=== PATIENT | female | born 1965 ===

== ENCOUNTER → 2020-05-14 09:52 | Outpatient (BNVA) | payer MEDICAID, SELFPAY | PROVIDERS: PCP Family Medicine; Visit Provider Surgery | DX: R91.8 Other nonspecific abnormal finding of lung field (principal); F17.200 Nicotine dependence, unspecified, uncomplicated; Z71.6 Tobacco abuse counseling | CPT/HCPCS: 99214 ==

== ENCOUNTER 2020-05-31 13:41 | Outpatient (REF) | payer MEDICAID, SELFPAY ==
--- NOTE | 2020-05-31 | US_ITS ---
EXAMINATION: NONINVASIVE ASSESSMENT OF THE ARTERIES OF BOTH LOWER EXTREMITIES WITH ANKLE PRESSURE MEASUREMENTS, ANKLE BRACHIAL INDICES, PVR MEASUREMENTS AND BILATERAL LOWER EXTREMITY DUPLEX. CLINICAL INFORMATION: Leg pain with walking. TECHNIQUE: Ankle pressure measurements, ankle brachial indices and PVR tracings were obtained of the lower extremity arterial system bilaterally. In addition, duplex Doppler techniques with wave form analysis and measurement of velocities in the common femoral, profunda femoral, superficial femoral, popliteal and tibial arteries was performed. The study was performed only at rest. COMPARISON: None. FINDINGS: NONINVASIVE ASSESSMENT OF THE ARTERIES OF BOTH LOWER EXTREMITIES WITH ABIs: RIGHT LEG: Right ankle-brachial index: 0.89. Right ankle pressures: PT 106. DP 132. PVR (ankle): Dampened. LEFT LEG: Ankle-brachial index: 0.77. Pressures: PT 115. DP 105. PVR (ankle): Dampened. FREEDOM Reference: - >0.97-1.25 = normal - no significant arterial disease. - 0.75-0.96 = mild peripheral arterial disease. - 0.5-0.74 = moderate peripheral arterial disease. - <0.50 = severe peripheral arterial disease. BILATERAL LOWER EXTREMITY DUPLEX ULTRASOUND: RIGHT LEG: Common femoral artery: 237 cm/s, Diastolic flow reversal: Yes. Profunda femoris artery: 200 cm/s, Diastolic flow reversal: Yes. Superficial femoral artery (proximal): 207 cm/s, Diastolic flow reversal: Yes. Superficial femoral artery (mid): 366 cm/s, Diastolic flow reversal: Yes. Superficial femoral artery (distal): 114 cm/s, Diastolic flow reversal: Yes. Popliteal artery: 80 cm/s, Diastolic flow reversal: Yes. Posterior tibial artery: 59 cm/s, Diastolic flow reversal: No. LEFT LEG: Common femoral artery: 203 cm/s, Diastolic flow reversal: Yes. Profunda femoris artery: 218 cm/s, Diastolic flow reversal: Yes. Superficial femoral artery (proximal): 167 cm/s, Diastolic flow reversal: No. Superficial femoral artery (mid): 75 cm/s, Diastolic flow reversal: No. Superficial femoral artery (distal): 101 cm/s, Diastolic flow reversal: No. Popliteal artery: 79 cm/s, Diastolic flow reversal: No. Posterior tibial artery: 101 cm/s, Diastolic flow reversal: No. US/US arterial duplex LE BI IMPRESSION: RIGHT LEG: FREEDOM 0.89 consistent with mild arterial insufficiency throughout the right lower extremity. Moderate, hemodynamically significant mid SFA stenosis by duplex criteria. LEFT LEG: FREEDOM 0.77 consistent with mild arterial occlusive disease.
== END 2020-05-31 13:42 | disposition home or self-care (01) ==
LOC: HO.US 13:41
PROVIDERS: PCP Family Medicine; Visit Provider Family Medicine
DX: M79.606 Pain in leg, unspecified (principal)
CPT/HCPCS: 93923; 93925

== ENCOUNTER → 2020-07-01 13:24 | Outpatient (BNVA) | payer MEDICAID, SELFPAY | PROVIDERS: PCP Family Medicine; Visit Provider Internal Medicine Pulmonary Disease | DX: J44.9 Chronic obstructive pulmonary disease, unspecified (principal) | CPT/HCPCS: 99202 ==

== ENCOUNTER 2020-07-13 13:02 | Outpatient (REF) | payer MEDICAID, SELFPAY ==
--- NOTE | 2020-07-13 17:25 | PFT_ITS ---
FLOWS: FEV1 of 81% of predicted at 1.78 L. FVC 72% of predicted at 2.01 L. FEV1 to FVC ratio of 0.89. No bronchodilator response. LUNG VOLUMES: Total lung capacity 84% of predicted at 3.65 L. Residual volume 104% of predicted at 1.72 L. Slow vital capacity 72% of predicted at 1.93 L. Expiratory reserve volume 19% of predicted at 0.15 L. Diffusion capacity is moderately decreased, diffusion capacity adjust to being mildly decreased after correction for alveolar ventilation. IMPRESSION: No obstructive or restrictive ventilatory defect. No bronchodilator response. Decreased expiratory reserve volume suggests extrathoracic restriction likely secondary to abdominal obesity. Decreased diffusion capacity suggests emphysema. Olman Hendrix MD AP/MODL / [id number]
== END 2020-07-13 13:03 | disposition home or self-care (01) ==
LOC: HO.RESP 13:02
PROVIDERS: Visit Provider Internal Medicine Pulmonary Disease
DX: J44.9 Chronic obstructive pulmonary disease, unspecified (principal)
CPT/HCPCS: 94060; 94727; 94729

== ENCOUNTER → 2020-12-24 11:12 | Outpatient (BNVA) | payer MEDICAID, SELFPAY | PROVIDERS: PCP Family Medicine; Visit Provider Surgery | DX: R19.8 Other specified symptoms and signs involving the digestive system and abdomen (principal); J44.9 Chronic obstructive pulmonary disease, unspecified; Z79.899 Other long term (current) drug therapy; Z87.891 Personal history of nicotine dependence | CPT/HCPCS: 99212 ==

== ENCOUNTER → 2021-03-15 13:21 | Outpatient (BNVA) | payer MEDICAID, SELFPAY | PROVIDERS: PCP Family Medicine; Visit Provider Internal Medicine Pulmonary Disease | DX: J44.1 Chronic obstructive pulmonary disease with (acute) exacerbation (principal); R91.1 Solitary pulmonary nodule | CPT/HCPCS: 99212 ==

== ENCOUNTER → 2021-09-23 13:03 | Outpatient (BNVA) | payer MEDICAID, SELFPAY | PROVIDERS: PCP Family Medicine; Visit Provider Internal Medicine Pulmonary Disease | DX: J44.9 Chronic obstructive pulmonary disease, unspecified (principal); R91.8 Other nonspecific abnormal finding of lung field; Z91.09 Other allergy status, other than to drugs and biological substances | CPT/HCPCS: 99212 ==

== ENCOUNTER → 2021-11-10 12:07 | Outpatient (BNVA) | payer MEDICAID, SELFPAY | PROVIDERS: PCP Family Medicine; Referring Provider Family Medicine; Visit Provider Physician Assistant | DX: K21.9 Gastro-esophageal reflux disease without esophagitis (principal); Z86.010 Personal history of colon polyps; Z87.891 Personal history of nicotine dependence | CPT/HCPCS: 99202 ==

== ENCOUNTER 2021-12-19 17:22 | Emergency (ER) | payer MEDICAID, SELFPAY ==
[2021-12-19 18:42] VITALS: BP 178/53; PULSE 68; RESP 18; TEMP 37.2; O2SAT 96; BMI 32.0
[2021-12-19 19:20] VITALS: BP 180/76; PULSE 65; RESP 16; TEMP 36.3; O2SAT 98
[2021-12-19 19:35] LABS: MANUAL DIFF FLAG NO
[2021-12-19 19:39] LABS: Basophils Absolute Auto 0.1 X10*3/uL (0.0-0.2); Basophils Percent Auto 1.1 % (0-2); Eosinophils Absolute Auto 0.5 X10*3/uL (0.0-0.4); Eosinophils Percent Auto 4.1 % (0-4); Hematocrit 33.9 % (37.0-47.0); Hemoglobin 11.6 g/dl (12.0-16.0); Imm Gran Abs Auto 0.05 X10*3/uL (0.00-0.03); Imm Gran Pct Auto 0.4 % (0.0-0.4); Lymphocytes Absolute Auto 4.3 X10*3/uL (1.2-4.9); Lymphocytes Percent Auto 34.6 % (20-40); Mean Corpuscular HGB Conc 34.2 g/dl (31.0-35.0); Mean Corpuscular Hemoglobin 30.8 pg (27.0-33.0); Mean Corpuscular Volume 89.9 fL (80.0-98.0); Mean Platelet Volume 9.2 fL (9.4-12.3); Monocytes Absolute Auto 0.8 X10*3/uL (0.1-1.2); Monocytes Percent Auto 6.3 % (2-11); Neutrophils Absolute Auto 6.6 x10*3/uL (2.0-8.3); Neutrophils Percent Auto 53.5 % (45-73); Platelet Count 351 X10*3/uL (160-400); Red Blood Count 3.77 X10*6/uL (4.20-5.50); Red Cell Distribution Width 13.4 % (11.0-16.0); White Blood Count 12.3 X10*3/uL (4.8-10.8)
[2021-12-19 19:42] LABS: Appearance Urine CLEAR; Color Urine STRAW; Glucose Urine UA Negative (NEG); Leukocyte Esterase Urine Negative (Negative); Nitrite Urine Negative (NEG); Specific Gravity - Urine <= 1.005 (1.005-1.025); Urine Blood Negative (NEG); Urine Ketones Negative (NEG); Urine Protein Negative (NEG-TRACE)
[2021-12-19 19:55] LABS: Alanine Aminotransferase 11 U/L (0-31); Albumin Level 3.8 g/dL (3.5-5.0); Alkaline Phosphatase 85 U/L (39-117); Anion Gap 15 (12-20); Aspartate Amino Transferase 18 U/L (5-31); Bilirubin Total 0.2 mg/dL (0.0-1.0); Blood Urea Nitrogen 26 mg/dL (9-16); Calcium 8.9 mg/dL (8.4-10.2); Carbon Dioxide 25 mmol/L (22-29); Chloride 100 mmol/L (96-108); Creatinine Clr Calc Pharmacy 31.8; Estimated Glomerular Filt Rate 34; Glucose Random 86 mg/dL (60-115); Potassium 4.3 mmol/L (3.3-5.1); Sodium 136 mmol/L (135-145); Total Protein 6.5 g/dL (6.5-8.0)
== END 2021-12-20 01:01 | disposition left against medical advice (07) ==
PROVIDERS: Emergency Provider Emergency Medicine
DX: R31.9 Hematuria, unspecified (principal); Z79.899 Other long term (current) drug therapy
CPT/HCPCS: 36415; 80053; 81003; 85025; 99282; 99283

== ENCOUNTER 2022-02-09 13:07 | Outpatient (REF) | payer MEDICAID, SELFPAY ==
--- NOTE | ~2022-02-09 | CT_ITS ---
EXAMINATION: CT CHEST SCREENING CLINICAL INFORMATION: Current smoker, one pack per day for 22 years. COMPARISON: Chest x-ray 10/03/2018. TECHNIQUE: Multidetector volumetric CT imaging of the chest is performed without contrast using low dose technique. Additional 2D coronal and sagittal reformatted images and axial 3D maximum intensity projection (MIP) images are generated on the CT workstation. This CT examination was performed using dose optimization techniques as appropriate, variously including the following: *Automated exposure control *Adjustment of mA and/or kV according to patient size (this includes techniques or standardized protocols for targeted exams where dose is matched to indication/reason for exam; i.e. extremities or head) *Use of iterative reconstruction technique DLP: 200 mGy-cm. FINDINGS: LUNGS: The lungs are well expanded with reticular nodular changes and ground-glass attenuation in left lower lobe superior segment with peribronchial thickening. Focal triangular thickening is seen in the superior segment left lower lobe measuring 9 mm on axial image 184/6. The nodules are calcified. There is a 3 mm nodule adjacent to the left major fissure axial image 289/6, a 4 mm nodular left lower lobe adjacent to the left major fissure axial image 317/6, a 9 mm nodule with central calcification left lower lobe medially adjacent to the pericardium axial image 260/6 and 3 calcified nodules left lower lobe measuring 1 4 mm, 8 mm and 3 mm superior segment axial image 204/6. Focal atelectatic changes left lower lobe. Mild centrilobular emphysematous changes are seen in the lower lobes. MEDIASTINUM: Thyroid lobes are symmetric and normal. The central trachea and the bronchi are widely patent. Heart size and the great vessels are normal caliber. There are coronary artery calcifications present. No pericardial effusion seen. CORONARY ARTERY CALCIFICATION: Mild coronary artery calcifications seen. PLEURA: There is no pleural effusion. No pleural mass or thickening. AXILLA: No lymphadenopathy. UPPER ABDOMEN: Visualized liver, spleen, pancreas and bilateral adrenal glands are unremarkable. OSSEOUS STRUCTURES: No aggressive lytic or sclerotic process seen. CT/CT lung screening IMPRESSION: Radicular nodular changes with bronchial wall thickening superior segment left lower lobe. The nodules are calcified, likely chronic changes. There are 3 moderate-sized calcified nodules in the left lower lobe superior segment, likely chronic as well. Triangular density in the left lower lobe superior segment is likely focal atelectasis. No acute consolidation seen. ASSESSMENT: Lung-RADS category 3: Probably benign. RECOMMENDATION: Six-month low-dose CT chest.
== END 2022-02-09 13:08 | disposition home or self-care (01) ==
LOC: HO.CT 13:07
PROVIDERS: Visit Provider Physician Assistant Medical
DX: Z12.2 Encounter for screening for malignant neoplasm of respiratory organs (principal); Z87.891 Personal history of nicotine dependence
CPT/HCPCS: 71271

== ENCOUNTER → 2022-04-17 10:57 | Outpatient (BNVA) | payer MEDICAID, SELFPAY | PROVIDERS: PCP Family Medicine; Visit Provider Physician Assistant | DX: K59.09 Other constipation (principal) | CPT/HCPCS: 99202 ==

== ENCOUNTER → 2022-04-20 11:23 | Outpatient (BNVA) | payer MEDICAID, SELFPAY | PROVIDERS: PCP Family Medicine; Visit Provider Internal Medicine Pulmonary Disease | DX: Z01.811 Encounter for preprocedural respiratory examination (principal); J44.1 Chronic obstructive pulmonary disease with (acute) exacerbation; Z91.09 Other allergy status, other than to drugs and biological substances | CPT/HCPCS: 99212 ==

== ENCOUNTER 2022-08-07 15:28 | Outpatient (REF) | payer MEDICAID, SELFPAY ==
--- NOTE | ~2022-08-07 | MR_ITS ---
EXAMINATION: MR LUMBAR SPINE WITHOUT CONTRAST CLINICAL INFORMATION: Low back pain radiating to bilateral lower extremities. COMPARISON: There are no prior studies available for comparison. TECHNIQUE: MRI of the lumbar spine was obtained using routine sequences without contrast. FINDINGS: VERTEBRAL BODIES AND PARASPINAL STRUCTURES: There is a mild grade 1 anterolisthesis of L4 on L5. Intervertebral disc heights are maintained. There is disc desiccation throughout the lumbar spine, relatively sparing L4-L5. The vertebral bodies have normal height and contour, and no fractures are demonstrated. Overall, marrow signal is homogenous. The visualized retroperitoneal and pelvic structures are unremarkable. CONUS MEDULLARIS AND CAUDA EQUINA: Normal, terminating at the level of T12-L1. The lower thoracic spinal cord appears normal. The cauda equina nerve roots and filum terminale appear normal. SPINAL LEVELS: L1-L2: The facet joints appear normal. There is a small left paracentral disc protrusion with minimal distortion of the ventral thecal sac. There is no central stenosis and the neural foramina are patent bilaterally. L2-L3: There is mild bilateral facet arthropathy. Disc contour is normal. There is no central stenosis or foraminal narrowing. L3-L4: There is mild to moderate bilateral facet arthropathy. There is a left foraminal disc protrusion with mild impingement on the exiting left L3 nerve root. There is no central stenosis. L4-L5: There is moderate to severe left and mild to moderate right facet arthropathy. There is a central and left-sided disc protrusion which flattens the ventral thecal sac and narrows the left subarticular recess with impingement on the traversing left L5 nerve root. There are bilateral foraminal disc protrusions with impingement on the exiting L4 nerve roots. There is moderate central stenosis. L5-S1: There is mild bilateral facet arthropathy. There is a central and left paracentral disc protrusion with distortion of the ventral thecal sac, but the subarticular recesses are patent and there is no central stenosis. There are left greater than right foraminal disc protrusions with impingement on the exiting L5 nerve roots. MR/MR lumbar spine wo con IMPRESSION: 1. At L4-L5 there is a central and left-sided disc protrusion which narrows the left subarticular recess with impingement on the traversing left L5 nerve root. There are bilateral foraminal disc protrusions impinging on the exiting L4 nerve roots. There is moderate central stenosis. 2. At L5-S1 there is a central and left paracentral disc protrusion with distortion of the ventral thecal sac. There are left greater than right foraminal disc protrusions with impingement on the exiting L5 nerve roots. There is no central stenosis. 3. At L3-L4 there is facet arthropathy and there is a left foraminal disc protrusion impinging on the exiting left L3 nerve root. There is no central stenosis.
== END 2022-08-07 15:29 | disposition home or self-care (01) ==
LOC: HO.MRI 15:28
PROVIDERS: PCP Family Medicine; Visit Provider Family Medicine
DX: M54.50 Low back pain, unspecified (principal)
CPT/HCPCS: 72148

== ENCOUNTER 2022-08-09 13:56 | Outpatient (REF) | payer MEDICAID, SELFPAY ==
--- NOTE | ~2022-08-09 | XR_ITS ---
EXAMINATION: XR ANKLE, LEFT CLINICAL INFORMATION: Pain COMPARISON: None available. TECHNIQUE: AP, lateral, and mortise views of the left ankle. FINDINGS: Overlying material obscures evaluation of fine bony detail. With this limitation, no acute fracture or dislocation. Atherosclerotic vascular calcification. No tibiotalar joint effusion. Mild degenerative changes with plantar calcaneal spurring and Achilles tendon enthesopathy. XR/XR ankle LT min 3V IMPRESSION: 1. Overlying material obscures evaluation of fine bony detail. With this limitation, no acute fracture or dislocation. 2. Mild degenerative changes with plantar calcaneal spurring and Achilles tendon enthesopathy.
== END 2022-08-09 13:57 | disposition home or self-care (01) ==
LOC: HO.XRAY 13:56
PROVIDERS: PCP Family Medicine; Visit Provider Family Medicine
DX: M25.572 Pain in left ankle and joints of left foot (principal)
CPT/HCPCS: 73610

== ENCOUNTER 2022-08-24 14:17 | Outpatient (REF) | payer MEDICAID, SELFPAY ==
--- NOTE | ~2022-08-24 | MM_ITS ---
EXAMINATION: MM SCREENING DIGITAL BREAST TOMOSYNTHESIS, BILATERAL CLINICAL INFORMATION: Screening. Asymptomatic. The lifetime risk of breast cancer based on the Tyrer-Cuzick Model is 10.6%. COMPARISON: Mammography: and studies dating back to 08/04/2014. TECHNIQUE: Digital breast tomosynthesis is performed in both the craniocaudal and mediolateral oblique views along with computer-aided detection (CAD). Synthesized 2-D images are generated from the tomosynthesis. FINDINGS: The breasts are heterogeneously dense, which may obscure small masses (ACR BI-RADS breast composition Category c). About the inferior medial aspect of the left breast, there are some calcifications present, some of which appear to have a tobin-shaped form and for which spot magnification films are recommended in craniocaudal and 90 degree mediolateral views. There is multiplicity and bilaterality of other calcifications. No definite new abnormal dominant mass is identified. MM/MM tomosynthesis screening BI IMPRESSION: Left breast calcifications for evaluation as described. ASSESSMENT: BI-RADS 0: Incomplete - Need Additional Imaging Evaluation. RECOMMENDATION: 1. Additional views of the left breast. 2. Targeted ultrasound if warranted after review of the additional views. 3. Radiology department staff will contact the patient for additional imaging. This patient's information was entered into a reminder system with a target due date for their next mammogram.
== END 2022-08-24 14:18 | disposition home or self-care (01) ==
LOC: HO.MAMMO 14:17
PROVIDERS: PCP Family Medicine; Visit Provider Family Medicine
DX: Z12.31 Encounter for screening mammogram for malignant neoplasm of breast (principal)
CPT/HCPCS: 77063; 77067

== ENCOUNTER 2022-09-08 14:52 | Outpatient (REF) | payer MEDICAID, SELFPAY ==
--- NOTE | ~2022-09-08 | MM_ITS ---
EXAMINATION: MM DIAGNOSTIC DIGITAL MAMMOGRAPHY, LEFT CLINICAL INFORMATION: Left breast calcifications. COMPARISON: Mammography: 08/24/2022 and studies dating back to 08/04/2014. TECHNIQUE: Digital mammography is performed in the following views: Spot magnification views left breast in craniocaudal and 90 degree mediolateral views. FINDINGS: The breasts are heterogeneously dense, which may obscure small masses (ACR BI-RADS breast composition Category c). The calcifications about the medial aspect of the left breast appear to be indeterminate in nature and stereotactic core biopsy of both groupings of calcifications is recommended. These calcifications were not present on prior examinations. Results are discussed with the patient at time of visit. MM/MM added views LT IMPRESSION: Two regions of indeterminate calcifications within the left breast for which stereotactic core biopsy is recommended. ASSESSMENT: BI-RADS 4: Suspicious RECOMMENDATION: Stereotactic core biopsy left breast. Mammography Center patient coordinator called referring provider with the above recommendation.
== END 2022-09-08 14:53 | disposition home or self-care (01) ==
LOC: HO.MAMMO 14:52
PROVIDERS: PCP Family Medicine; Visit Provider Family Medicine
DX: R92.1 Mammographic calcification found on diagnostic imaging of breast (principal)
CPT/HCPCS: 77065

== ENCOUNTER 2022-09-12 09:29 | Outpatient (REF) | payer MEDICAID, SELFPAY ==
--- NOTE | ~2022-09-12 | MM_ITS ---
EXAMINATION: STEREOTACTIC TOMOSYNTHESIS-GUIDED VACUUM-ASSISTED BREAST BIOPSY (TWO SITES), LEFT SPECIMEN RADIOGRAPHS (TWO SPECIMENS), LEFT POST PROCEDURE DIGITAL MAMMOGRAM, LEFT CLINICAL INFORMATION: 2 groups calcifications mid medial left breast for stereotactic sampling. COMPARISON: Mammography 09/08/2022, 08/24/2022, 06/07/2018. TECHNIQUE/PROCEDURE: Informed consent was obtained from the patient after discussion of the benefits, risks, and alternatives to biopsy today. Patient appeared to understand. Gave opportunity for questions. Patient signed consent form. Hospital provided educational sign language interpreter assisted during the consent and home instructions. Specimen A: BIOPSY TABLE: Hologic Affirm Prone Biopsy System. LESION: Grouped relatively coarse calcifications mid medial left breast, possibly fibroadenomatous calcifications. LOCAL ANESTHESIA: 5 mL carbonated 1% lidocaine; 10 mL 1% lidocaine with epinephrine. DERMATOTOMY: Single skin delbert dermatotomy performed. NEEDLE: Suros Eviva 9-gauge vacuum assisted core biopsy device. APPROACH: Caudal cranial. TARGETING: Combination of digital breast tomosynthesis and stereotactic digital mammography used for targeting. CORES: 4. CLIP: Suros SecurMark Cylinder-shaped marker. SPECIMEN RADIOGRAPH (A): Specimen radiograph is taken in separate room using digital mammography. The index calcifications are in the excised cores. There are over 10 calcifications in the cores. Specimen B: Fresh biopsy supplies are used for 2nd biopsy site. BIOPSY TABLE: Hologic Affirm Prone Biopsy System. LESION: Grouped heterogeneous coarse calcifications mid medial left breast, slightly more anterior and central to specimen A group, possibly fibroadenomatous calcifications. LOCAL ANESTHESIA: 7 mL carbonated 1% lidocaine; 10 mL 1% lidocaine with epinephrine. DERMATOTOMY: Single skin delbert dermatotomy performed. NEEDLE: Suros Eviva 9-gauge vacuum assisted core biopsy device. APPROACH: Caudal cranial. TARGETING: Combination of digital breast tomosynthesis and stereotactic digital mammography used for targeting. CORES: 5. CLIP: Suros SecurMark T-shaped marker. SPECIMEN RADIOGRAPH (B): Specimen radiograph is taken in separate room using digital mammography. The index calcifications are in the excised cores. There are over 10 calcifications in the cores. POST PROCEDURE UNILATERAL DIGITAL MAMMOGRAM: The post biopsy mammogram is performed in separate room using separate digital mammography equipment from the biopsy procedure. CC and ML views are obtained. The breasts are heterogeneously dense, which may obscure small masses (breast composition category: c). The clip markers are in position. The calcifications are markedly decreased at both biopsy sites. No gross hematoma. The patient tolerated the procedure well. No immediate complications. Home instructions reviewed with the patient. Final pathology results are pending. MM/MM stereotactic biopsy ea add IMPRESSION: 1. Digital tomosynthesis-guided core biopsy left breast with clip placement, 2 sites mid medial breast. 2. Specimen radiograph taken and post procedure mammogram. There is satisfactory positioning of the biopsy clips. 3. Final pathology results pending. An addendum report will be issued. .
--- NOTE | ~2022-09-12 | MM_ITS ---
EXAMINATION: STEREOTACTIC TOMOSYNTHESIS-GUIDED VACUUM-ASSISTED BREAST BIOPSY (TWO SITES), LEFT SPECIMEN RADIOGRAPHS (TWO SPECIMENS), LEFT POST PROCEDURE DIGITAL MAMMOGRAM, LEFT CLINICAL INFORMATION: 2 groups calcifications mid medial left breast for stereotactic sampling. COMPARISON: Mammography 09/08/2022, 08/24/2022, 06/07/2018. TECHNIQUE/PROCEDURE: Informed consent was obtained from the patient after discussion of the benefits, risks, and alternatives to biopsy today. Patient appeared to understand. Gave opportunity for questions. Patient signed consent form. Hospital provided butter grader assisted during the consent and home instructions. Specimen A: BIOPSY TABLE: Hologic Affirm Prone Biopsy System. LESION: Grouped relatively coarse calcifications mid medial left breast, possibly fibroadenomatous calcifications. LOCAL ANESTHESIA: 5 mL carbonated 1% lidocaine; 10 mL 1% lidocaine with epinephrine. DERMATOTOMY: Single skin delbert dermatotomy performed. NEEDLE: Suros Eviva 9-gauge vacuum assisted core biopsy device. APPROACH: Caudal cranial. TARGETING: Combination of digital breast tomosynthesis and stereotactic digital mammography used for targeting. CORES: 4. CLIP: Suros SecurMark Cylinder-shaped marker. SPECIMEN RADIOGRAPH (A): Specimen radiograph is taken in separate room using digital mammography. The index calcifications are in the excised cores. There are over 10 calcifications in the cores. Specimen B: Fresh biopsy supplies are used for 2nd biopsy site. BIOPSY TABLE: Hologic Affirm Prone Biopsy System. LESION: Grouped heterogeneous coarse calcifications mid medial left breast, slightly more anterior and central to specimen A group, possibly fibroadenomatous calcifications. LOCAL ANESTHESIA: 7 mL carbonated 1% lidocaine; 10 mL 1% lidocaine with epinephrine. DERMATOTOMY: Single skin delbert dermatotomy performed. NEEDLE: Suros Eviva 9-gauge vacuum assisted core biopsy device. APPROACH: Caudal cranial. TARGETING: Combination of digital breast tomosynthesis and stereotactic digital mammography used for targeting. CORES: 5. CLIP: Suros SecurMark T-shaped marker. SPECIMEN RADIOGRAPH (B): Specimen radiograph is taken in separate room using digital mammography. The index calcifications are in the excised cores. There are over 10 calcifications in the cores. POST PROCEDURE UNILATERAL DIGITAL MAMMOGRAM: The post biopsy mammogram is performed in separate room using separate digital mammography equipment from the biopsy procedure. CC and ML views are obtained. The breasts are heterogeneously dense, which may obscure small masses (breast composition category: c). The clip markers are in position. The calcifications are markedly decreased at both biopsy sites. No gross hematoma. The patient tolerated the procedure well. No immediate complications. Home instructions reviewed with the patient. Final pathology results are pending. MM/MM stereotactic biopsy LT IMPRESSION: 1. Digital tomosynthesis-guided core biopsy left breast with clip placement, 2 sites mid medial breast. 2. Specimen radiograph taken and post procedure mammogram. There is satisfactory positioning of the biopsy clips. 3. Final pathology results pending. An addendum report will be issued. .
[2022-09-12] MEDS: Lidocaine HCl 1 % 20 ML VIAL SUBCUT (11:14)
[2022-09-12] MEDS: Sodium Bicarbonate 8.4% 50 MEQ/50 ML VIAL SUBCUT (11:15)
[2022-09-12] MEDS: Lidocaine HCl 1%/Epi 1:100,000 10 ML VIAL 20 ML SUBCUT (11:17)
== END 2022-09-12 09:30 | disposition home or self-care (01) ==
LOC: HO.MAMMO 09:29
PROVIDERS: PCP Family Medicine; Visit Provider Family Medicine
DX: R92.0 Mammographic microcalcification found on diagnostic imaging of breast (principal)
CPT/HCPCS: 19081; 19082; 88305; 99202; A4648

== ENCOUNTER 2022-11-13 13:45 | Outpatient (AMB) | payer MEDICAID, SELFPAY ==
[2022-11-13 13:47] VITALS: BP 145/62; PULSE 161; RESP 14; BMI 31.2
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
== END 2022-11-13 14:01 | disposition home or self-care (01) ==
PROVIDERS: PCP Family Medicine; Visit Provider Internal Medicine
DX: M54.41 Lumbago with sciatica, right side (principal); M54.42 Lumbago with sciatica, left side
CPT/HCPCS: 99203

== ENCOUNTER → 2022-11-13 13:45 | Outpatient (BNVA) | payer MEDICAID, SELFPAY | PROVIDERS: PCP Family Medicine; Visit Provider Internal Medicine | DX: M54.42 Lumbago with sciatica, left side (principal); M54.41 Lumbago with sciatica, right side; E10.22 Type 1 diabetes mellitus with diabetic chronic kidney disease; E10.65 Type 1 diabetes mellitus with hyperglycemia; I12.9 Hypertensive chronic kidney disease with stage 1 through stage 4 chronic kidney disease, or unspecified chronic kidney disease; F17.210 Nicotine dependence, cigarettes, uncomplicated; N18.30 Chronic kidney disease, stage 3 unspecified; Z79.4 Long term (current) use of insulin | CPT/HCPCS: 99202 ==

== ENCOUNTER 2023-01-30 14:23 | Outpatient (REF) | payer MEDICAID, SELFPAY ==
--- NOTE | ~2023-01-30 | XR_ITS ---
EXAMINATION: XR CHEST CLINICAL INFORMATION: Presurgical evaluation COMPARISON: None available. TECHNIQUE: 2 views of the chest were obtained. FINDINGS: No significant abnormality is noted involving the heart, lungs, mediastinum, bony thorax or soft tissues. XR/XR chest 2V IMPRESSION: Unremarkable examination.
--- NOTE | 2023-01-30 14:40 | ECG_ITS ---
Test Reason : preop Blood Pressure : / mmHG Vent. Rate : 055 BPM Atrial Rate : 055 BPM P-R Int : 188 ms QRS Dur : 086 ms QT Int : 406 ms P-R-T Axes : 017 072 075 degrees QTc Int : 388 ms Sinus bradycardia Nonspecific ST abnormality Abnormal ECG When compared with ECG of 25-JUL-2017 14:51, No significant change was found Referred By: Marium Agudelo Electronically Signed By:JACEY BRITT
[2023-01-30 14:44] LABS: MANUAL DIFF FLAG NO
[2023-01-30 15:25] LABS: Basophils Absolute Auto 0.1 X10*3/uL (0.0-0.2); Basophils Percent Auto 0.8 % (0-2); Eosinophils Absolute Auto 0.2 X10*3/uL (0.0-0.4); Eosinophils Percent Auto 1.8 % (0-4); Hematocrit 40.4 % (37.0-47.0); Hemoglobin 13.3 g/dl (12.0-16.0); Imm Gran Abs Auto 0.06 X10*3/uL (0.00-0.03); Imm Gran Pct Auto 0.5 % (0.0-0.4); Lymphocytes Absolute Auto 3.1 X10*3/uL (1.2-4.9); Lymphocytes Percent Auto 23.5 % (20-40); Mean Corpuscular HGB Conc 32.9 g/dl (31.0-35.0); Mean Corpuscular Hemoglobin 30.5 pg (27.0-33.0); Mean Corpuscular Volume 92.7 fL (80.0-98.0); Mean Platelet Volume 9.8 fL (9.4-12.3); Monocytes Absolute Auto 0.5 X10*3/uL (0.1-1.2); Monocytes Percent Auto 4.1 % (2-11); Neutrophils Absolute Auto 9.1 x10*3/uL (2.0-8.3); Neutrophils Percent Auto 69.3 % (45-73); Platelet Count 396 X10*3/uL (160-400); Red Blood Count 4.36 X10*6/uL (4.20-5.50); Red Cell Distribution Width 13.4 % (11.0-16.0); White Blood Count 13.1 X10*3/uL (4.8-10.8)
[2023-01-30 16:16] LABS: Anion Gap 11 (12-20); Blood Urea Nitrogen 24 mg/dL (9-16); Carbon Dioxide 25 mmol/L (22-29); Chloride 103 mmol/L (96-108); Estimated Glomerular Filt Rate 37; Glucose Random 65 mg/dL (60-115); Potassium 4.4 mmol/L (3.3-5.1); Sodium 135 mmol/L (135-145)
[2023-01-30 17:45] LABS: Prothrombin Time 11.9 SEC (11.1-13.3)
== END 2023-01-30 14:24 | disposition home or self-care (01) ==
LOC: HO.LAB 14:23
PROVIDERS: PCP Family Medicine; Visit Provider Family Medicine
DX: Z01.818 Encounter for other preprocedural examination (principal); I10 Essential (primary) hypertension
CPT/HCPCS: 36415; 71046; 80048; 85025; 85610; 93005

== ENCOUNTER 2023-02-01 13:27 | Outpatient (AMB) | payer MEDICAID, SELFPAY ==
[2023-02-01 13:29] VITALS: BP 152/62; PULSE 65; O2SAT 98; BMI 30.8
--- NOTE | 2023-02-01 13:29 | MHC.OFFVIS ---
Intake Vital Signs 02/01/23 13:29 Height 4 ft 9 in Weight 142 lb 3.17 oz BMI 30.8 BP 152/62 H Blood Pressure Location Lt brachial Position Sitting Pulse 65 Pulse Source Doppler Pulse Oximetry (%) 98 Oxygen Delivery Method Room Air Intake Visit Reasons: copd Allergies No Known Allergies [No Known Allergies*] Allergy (Verified 02/01/23 13:30) HPI copd HPI Details 58-year-old lady, active 35 pack year smoker, followed by thoracic surgery for pulmonary nodules and now followed for moderate COPD and environmental allergies. After the last office visit her Incruse has been switched to Anoro with significantly improved control. She denies any recent exacerbations. FORMERLY [facility], [facility]–1983 Medical History Chronic low back pain COPD (chronic obstructive pulmonary disease) History of tuberculosis (~1992) Hyperlipidemia Hypertension Multiple pulmonary nodules Obesity Personal history of nicotine dependence Type 1 diabetes mellitus with stage 3 chronic kidney disease, with long-term current use of insulin Surgical History H/O colonoscopy History of carpal tunnel surgery of right wrist (~2002) History of elbow surgery (~2010) History of foot surgery (~2005) History of hand surgery (~2003) History of right breast biopsy (~2004) History of shoulder surgery (~2005) History of surgery on left wrist (~2010) History of surgery on right wrist (~2011) Family History Brother Family history of premature coronary artery disease Father Renal disease Diabetes mellitus Mother Diabetes mellitus Maternal Grandmother Bladder cancer Social History (Updated 02/01/23 @ 13:31 by Marium Liu Miguel) Household Members: None Household Members Other:: 3kids Housing: Apartment Are you a primary date night caregiver to a significant other at home: No Patient Tobacco Use Status: Current everyday Tobacco user Tobacco use type: Cigarette Cigarettes Per Day: 15 Years Smoked: 35 yrs service: No Current occupational status: disabled Review of Systems Const Denies daytime sleepiness, Denies excessive sweating, Denies fatigue, Denies fever(s), Denies lethargy, Denies malaise, Denies night sweats, Denies snoring and Denies weight loss Eyes Denies blurry vision and Denies itchy eyes ENT Denies nasal congestion, Denies post nasal drip, Denies sinus pain, Denies sinus pressure and Denies other ( Thrush) Card Denies chest pain, Denies pedal edema, Denies dyspnea, Denies orthopnea and Denies paroxysmal nocturnal dyspnea Resp Denies cough, Denies hemoptysis, Denies excessive phlegm production, Denies dyspnea, Denies snoring and Denies wheezing GI Denies abdominal pain and Denies heartburn Musc Denies myalgias, Denies arthralgias and Denies joint swelling Skin/Breast Denies rash Neuro Denies memory loss and Denies seizure-like activity Psych Denies abnormal sleep pattern, Denies anxiety and Denies memory loss Endo Denies excessive sweating, Denies fatigue and Denies heat intolerance Everardo/Lymph Denies easy bruising Aller/Immun Denies itchy eyes, Denies seasonal rhinorrhea and Denies wheezing Physical Exam Vital Signs: Last Vital Signs Pulse 65 02/01/23 13:29 BP 152/62 H 02/01/23 13:29 Pulse Ox 98 02/01/23 13:29 Oxygen Delivery Method Room Air 02/01/23 13:29 BMI result Body Mass Index 30.8 Const General: no acute distress and alert Nutritional Appearance: not obese Orientation/consciousness: Other orientation findings ( oriented) HEENT Head: Yes atraumatic Eyes General: appearance normal, both eyes and all related structures Sclerae: sclerae normal EOM: EOMs intact bilaterally Neck Neck: Yes supple Lymphatic: no lymphadenopathy noted Resp Effort & Inspection: normal respiratory effort and no use of accessory muscles Auscultation: clear to auscultation bilaterally Cardio Rate: regular rate Rhythm: regular rhythm Heart sounds: no gallops, no murmurs and no rubs Skin General skin exam: other ( warm) Extrem General: No clubbing, No cyanosis and No edema Assessment & Plan Assessment & Plan (1) COPD (chronic obstructive pulmonary disease): Code(s): J44.9 - Chronic obstructive pulmonary disease, unspecified Plan: Well controlled current regimen of Anoro and albuterol MDI. Continue current regimen. (2) Pulmonary nodule: Code(s): R91.1 - Solitary pulmonary nodule Plan: Results of CT lung screening from February of 2022 reviewed. Will repeat in February of 2023. Orders: Orders CT lung screening Today R91.1 - Solitary pulmonary nodule Coding Level of Care Code Est Pt Level 4 (35064) Diagnoses COPD (chronic obstructive pulmonary disease) J44.9 Pulmonary nodule R91.1
== END 2023-02-01 13:40 | disposition home or self-care (01) ==
PROVIDERS: PCP Family Medicine; Visit Provider Internal Medicine Pulmonary Disease
DX: J44.9 Chronic obstructive pulmonary disease, unspecified (principal); R91.1 Solitary pulmonary nodule
CPT/HCPCS: 99214

== ENCOUNTER → 2023-02-01 13:27 | Outpatient (BNVA) | payer MEDICAID, SELFPAY | PROVIDERS: PCP Family Medicine; Visit Provider Internal Medicine Pulmonary Disease | DX: J44.9 Chronic obstructive pulmonary disease, unspecified (principal); R91.1 Solitary pulmonary nodule; Z79.899 Other long term (current) drug therapy | CPT/HCPCS: 99212 ==

== ENCOUNTER 2023-04-02 13:09 | Outpatient (REF) | payer MEDICAID, SELFPAY ==
--- NOTE | ~2023-04-02 | MM_ITS ---
EXAMINATION: MM DIAGNOSTIC DIGITAL BREAST TOMOSYNTHESIS, LEFT CLINICAL INFORMATION: 6 month follow-up status post 2 benign biopsies left breast. COMPARISON: Mammography: 09/12/2022, 09/08/2022, 08/24/2022, 06/07/2018. TECHNIQUE: Digital left breast tomosynthesis is performed in both the craniocaudal and mediolateral oblique views along with computer-aided detection (CAD). Synthesized 2D images are generated from the tomosynthesis. FINDINGS: There are scattered areas of fibroglandular density (ACR BI-RADS breast composition Category b). There are 2 biopsy clips present in the lower inner left breast, middle one third, with an associated benign small focus of coarse calcification just posterior to the cylindrical biopsy clip. There are no new suspicious calcifications, no masses, and no areas of architectural distortion in either left breast. The parenchymal pattern is stable from priors. No skin or axillary abnormalities. MM/MM tomosynthesis diagnostic LT IMPRESSION: There are no significant changes from the prior study. Benign findings left breast status post biopsy 2 sites lower inner quadrant. No findings suspicious for malignancy. ASSESSMENT: BI-RADS BI-RADS 2 - Benign Findings RECOMMENDATION: 1 year F/U Results were provided to the patient at time of visit by the technologist. This patient's information was entered into a reminder system with a target due date for their next mammogram.
== END 2023-04-02 13:10 | disposition home or self-care (01) ==
LOC: HO.MAMMO 13:09
PROVIDERS: PCP Family Medicine; Visit Provider Surgery
DX: R92.0 Mammographic microcalcification found on diagnostic imaging of breast (principal)
CPT/HCPCS: 77061; 77065

== ENCOUNTER → 2023-04-02 13:11 | Outpatient (BNV) | payer MEDICAID, SELFPAY | PROVIDERS: PCP Family Medicine; Visit Provider Radiology Diagnostic Radiology | DX: R92.1 Mammographic calcification found on diagnostic imaging of breast (principal); D24.2 Benign neoplasm of left breast | CPT/HCPCS: 77061; 77065 ==

== ENCOUNTER 2023-04-17 10:52 | Outpatient (AMB) | payer MEDICAID, SELFPAY ==
[2023-04-17 11:12] VITALS: BP 129/58; PULSE 59; BMI 29.6
--- NOTE | 2023-04-17 11:12 | MHC.OFFVIS ---
Intake Vital Signs 04/17/23 11:12 Height 4 ft 9 in Weight 137 lb BMI 29.6 BP 129/58 L Blood Pressure Location Rt brachial Position Sitting Pulse 59 Intake Visit Reasons: 6 month follow up, breast exam Intake Note: Patient here for 6m breast exam. Most recent mammo on 04-02-23. Reports pimple like lesions around areola. Not painful or itchy. Meteorologist In Charge Required: Yes Accompanied by: Self / Same As Patient Allergies No Known Allergies [No Known Allergies*] Allergy (Verified 04/17/23 11:14) HPI HPI Comments History of Present Illness Details Patient presents for follow-up 6 month status post her breast biopsy approximately 6 months ago. She has no specific breast issues or complaints. Patient does occasionally do breast exams. [facility] Medical History Obesity Chronic low back pain Type 1 diabetes mellitus with stage 3 chronic kidney disease, with long-term current use of insulin Hyperlipidemia Hypertension Personal history of nicotine dependence COPD (chronic obstructive pulmonary disease) History of tuberculosis (~1992) Multiple pulmonary nodules Surgical History H/O colonoscopy History of right breast biopsy (~2004) History of shoulder surgery (~2005) History of foot surgery (~2005) History of hand surgery (~2003) History of carpal tunnel surgery of right wrist (~2002) History of elbow surgery (~2010) History of surgery on left wrist (~2010) History of surgery on right wrist (~2011) Family History Brother Family history of premature coronary artery disease Father Renal disease Diabetes mellitus Mother Diabetes mellitus Maternal Grandmother Bladder cancer Social History Household Members: None Household Members Other:: 3kids Housing: Apartment Are you a primary nonfarm animal caretaker to a significant other at home: No Patient Tobacco Use Status: Current everyday Tobacco user Tobacco use type: Cigarette Cigarettes Per Day: 15 Years Smoked: 35 yrs service: No Current occupational status: disabled Physical Exam Vital Signs: Last Vital Signs Pulse 59 04/17/23 11:12 BP 129/58 L 04/17/23 11:12 BMI result Body Mass Index 29.6 Chest Other: Bilateral breast exam demonstrates no obvious mass, discharge, skin changes, or periclavicular cervical or axillary adenopathy. Assessment & Plan Assessment & Plan (1) Microcalcification of left breast on mammogram: Code(s): R92.0 - Mammographic microcalcification found on diagnostic imaging of breast Plan: Mammographic/radiologic recommendation is for follow-up in 1 year's time for screening mammography. Arrangements were made for this. During this interim, patient is encouraged to self breast exams periodically. She will see me 1 year's time proceeded by mammography or p.r.n.. All questions answered Orders: Orders MM screening mammo BI 11 Months R92.0 - Mammographic microcalcification found on diagnostic imaging of breast Coding Level of Care Code Est Pt Level 4 (72787) Diagnoses Microcalcification of left breast on mammogram R92.0
== END 2023-04-17 11:35 | disposition home or self-care (01) ==
PROVIDERS: PCP Family Medicine; Visit Provider Surgery
DX: R92.0 Mammographic microcalcification found on diagnostic imaging of breast (principal)
CPT/HCPCS: 99214

== ENCOUNTER → 2023-04-17 10:52 | Outpatient (BNVA) | payer MEDICAID, SELFPAY | PROVIDERS: PCP Family Medicine; Visit Provider Surgery | DX: R92.0 Mammographic microcalcification found on diagnostic imaging of breast (principal) | CPT/HCPCS: 99212 ==

== ENCOUNTER 2023-04-26 13:37 | Outpatient (AMB) | payer MEDICAID, SELFPAY ==
--- NOTE | 2023-04-26 13:38 | MHC.OFFVIS ---
Intake Vital Signs 04/26/23 13:59 Height 4 ft 9 in Weight 137 lb BMI 29.6 BP 155/69 H Blood Pressure Location Lt brachial Position Sitting Pulse 62 Pulse Source Monitor Intake Visit Reasons: follow up GERD Intake Note: Tracy presents in the office as a follow up for GERD. CC: Allergies No Known Allergies [No Known Allergies*] Allergy (Verified 04/17/23 11:14) Medication List - Last Reconciled 04/26/23 by Lizabeth Madrigal PA-C acetaminophen 500 mg PO QID PRN albuterol sulfate 90 mcg/actuation (ProAir HFA) 2 puffs inhalation QID atorvastatin 40 mg PO DAILY clonazepam 1 mg PO DAILY enalapril maleate 20 mg PO DAILY fluticasone propionate 50 mcg/actuation (Flonase Allergy Relief) 1 spray intranasal DAILY gabapentin 100 mg PO DAILY insulin lispro subcut naloxone 4 mg/actuation (Narcan) 1 spray intranasal Q2M polyethylene glycol 3350 (Miralax) 17 grams PO DAILY 30 days sennosides (senna) 8.6 mg PO DAILY umeclidinium-vilanterol 62.5-25 mcg/actuation (Anoro Ellipta) 1 inh inhalation DAILY 30 days zolpidem (Ambien) 10 mg PO BEDTIME PRN HPI HPI Comments History of Present Illness Details A 58 y/o female here for forgot reason Last seen 1 year ago was to have EGD and colonoscopy- she did not follow through- Last colonoscopy with polypectomy> 6 years ago ? [facility] She went to [place]. she says she does not have acid- does not take any medications for it- she does not want an EGD- appetite very good She has chronic constipation- miralax and senna-- BM every 2 days-no fiber or water Sees pulmonary-she has not had any recent respiratory infections No longer following with Cardiology- f./u pcp No acid reflux, abdominal pain nausea, vomiting, hematemesis, hematochezia fever or chills PFSH Medical History Obesity Chronic low back pain Type 1 diabetes mellitus with stage 3 chronic kidney disease, with long-term current use of insulin Hyperlipidemia Hypertension Personal history of nicotine dependence COPD (chronic obstructive pulmonary disease) History of tuberculosis (~1992) Multiple pulmonary nodules Surgical History H/O colonoscopy History of right breast biopsy (~2004) History of shoulder surgery (~2005) History of foot surgery (~2005) History of hand surgery (~2003) History of carpal tunnel surgery of right wrist (~2002) History of elbow surgery (~2010) History of surgery on left wrist (~2010) History of surgery on right wrist (~2011) Family History Brother Family history of premature coronary artery disease Father Renal disease Diabetes mellitus Mother Diabetes mellitus Maternal Grandmother Bladder cancer Social History Household Members: None Household Members Other:: 3kids Housing: Apartment Are you a primary direct care specialist to a significant other at home: No Patient Tobacco Use Status: Current everyday Tobacco user Tobacco use type: Cigarette Cigarettes Per Day: 15 Years Smoked: 35 yrs service: No Current occupational status: disabled Review of Systems Const All systems reviewed & are unremarkable except as noted in HPI and below Card Denies chest pain and Denies dyspnea Resp Denies dyspnea GI Denies abdominal pain, Denies hematochezia, Reports constipation, Denies heartburn, Denies diarrhea, Denies nausea and Denies vomiting Physical Exam Vital Signs: Last Vital Signs Pulse 62 04/26/23 13:59 BP 155/69 H 04/26/23 13:59 BMI result Body Mass Index 29.6 Const General: cooperative, comfortable and no acute distress Orientation/consciousness: patient oriented x3 Limitations: language barrier Eyes Sclerae: sclerae normal Resp Effort & Inspection: normal respiratory effort and able to speak in complete sentences Auscultation: rhonchi and no wheezes Cardio Rate: regular rate Rhythm: regular rhythm Heart sounds: S1 normal heart sound present and S2 normal heart sound present GI Palpation (GI): Soft to palpation and nontender Auscultation: normal bowel sounds Skin General skin exam: no rashes or lesions noted Neuro General: patient oriented x3 Extrem General: Yes full ROM Psych Appearance: grossly normal and well kempt Mental Status: mental status grossly normal Speech and movement: Normal speech and movement present Affect: normal affect Attitude: cooperative Thought process: Normal thought process present Thought content: Normal thought content present Results Reviewed Results Reviewed: 01/2023 FINDINGS: No significant abnormality is noted involving the heart, lungs, mediastinum, bony thorax or soft tissues. J44.9 - Chronic obstructive pulmonary disease, unspecified Plan: Well controlled current regimen of Anoro and albuterol MDI. Continue current regimen. (2) Pulmonary nodule: Assessment & Plan Assessment & Plan (1) Chronic GERD: Comment: no longer has gerd- declines EGD Code(s): K21.9 - Gastro-esophageal reflux disease without esophagitis (2) History of adenomatous polyp of colon: Comment: Colonoscopy, discussed procedure, risks need for escorted due to anesthesia Code(s): Z86.010 - Personal history of colonic polyps Plan: Colonoscopy polyp surveillance (3) COPD (chronic obstructive pulmonary disease): Comment: Report any respiratory illnesses Code(s): J44.9 - Chronic obstructive pulmonary disease, unspecified Plan colonoscopy- anesthesia consult- COPD- MG prep miralax- bid QD for 1 wk < prep day insulin pump- adjust accordingly- Orders: Orders Colonoscopy - GI Use Only 04/26/23 K59.09 - Other constipation, Z86.010 - Personal history of colonic polyps Medications: New bisacodyl (Dulcolax (bisacodyl)) Day before procedure, prep day Take 4 tablets by mouth upon awakening followed by large glass of water 20 mg (4 x 5 mg) PO ONCE 1 day 4 tabs 0RF colonoscopy prep Z12.11 - Encounter for screening for malignant neoplasm of colon polyethylene glycol 3350 (Miralax) Take as directed by mouth the day before your procedure. 238 grams PO ONCE 1 day PRN 238 grams 0RF laxative effect Patient Instructions: colonoscopy- anesthesia consult- COPD- MG prep, reviewed literature given miralax- bid QD for 1 wk < prep day insulin pump- adjust accordingly- Encouraged to call with any questions or concerns Coding Level of Care Code Est Pt Level 3 (46249) Diagnoses Chronic GERD K21.9 History of adenomatous polyp of colon Z86.010 COPD (chronic obstructive pulmonary disease) J44.9 Time Spent (min) 30 Comment [employer]
[2023-04-26 13:59] VITALS: BP 155/69; PULSE 62; BMI 29.6
== END 2023-04-26 14:37 | disposition home or self-care (01) ==
PROVIDERS: PCP Family Medicine; Visit Provider Physician Assistant
DX: K21.9 Gastro-esophageal reflux disease without esophagitis (principal); Z86.010 Personal history of colon polyps; J44.9 Chronic obstructive pulmonary disease, unspecified
CPT/HCPCS: 99213

== ENCOUNTER → 2023-04-26 13:37 | Outpatient (BNVA) | payer MEDICAID, SELFPAY | PROVIDERS: PCP Family Medicine; Visit Provider Physician Assistant | DX: K21.9 Gastro-esophageal reflux disease without esophagitis (principal); J44.9 Chronic obstructive pulmonary disease, unspecified; Z86.010 Personal history of colon polyps | CPT/HCPCS: 99212 ==

== ENCOUNTER 2023-05-30 15:12 | Outpatient (REF) | payer MEDICAID, SELFPAY ==
--- NOTE | ~2023-05-30 | CT_ITS ---
EXAMINATION: CT CHEST SCREENING CLINICAL INFORMATION: Current smoker, 30 pack year history. COMPARISON: Previous CTs, most recent, 02/09/2022. TECHNIQUE: Multidetector volumetric CT imaging of the chest is performed without contrast using low dose technique. Additional 2D coronal and sagittal reformatted images and axial 3D maximum intensity projection (MIP) images are generated on the CT workstation. This CT examination was performed using dose optimization techniques as appropriate, variously including the following: *Automated exposure control *Adjustment of mA and/or kV according to patient size (this includes techniques or standardized protocols for targeted exams where dose is matched to indication/reason for exam; i.e. extremities or head) *Use of iterative reconstruction technique DLP: 41 mGy-cm FINDINGS: DRILLER BRAKE LINING: Unremarkable. LUNGS: Trachea and bronchi are patent. Left lower lobe bronchial wall thickening. Centrilobular emphysema of and mild air trapping bilateral lower lobes, left greater than right. Scattered atelectasis. Left lower lobe reticular nodular opacities again seen includin mm medial nodule, 6:262, unchanged. More posteriorly, another 6 mm medial nodule seen on the same slice without change from previous. LLL 9 mm triangular opacity, 6:183, unchanged. Immediately adjacent are stable 3 mm, 6:196 and 4 mm nodules, 6:207. Stable 3 mm LLL nodule adjacent to the major fissure, 6:297. Vague 1.1 cm posterior RUL groundglass opacity, 3:11, more conspicuous than on previous study. MEDIASTINUM: Unremarkable thyroid. No pathologic lymphadenopathy. Nonenlarged heart. No pericardial effusion. Nonaneurysmal aorta with atherosclerotic calcifications. Nonenlarged pulmonary arteries. CORONARY ARTERY CALCIFICATION: Moderately severe. PLEURA: There is no pleural effusion. No pleural mass or thickening. AXILLA: No lymphadenopathy. UPPER ABDOMEN: Unremarkable OSSEOUS STRUCTURES: Unremarkable. CT/CT lung screening IMPRESSION: Multiple stable findings including centrilobular emphysema, left lower lobe bronchial wall thickening and left lower lobe reticulonodular opacities. No new or enlarging pulmonary nodules. Increased conspicuity right upper lobe 1.2 cm vague groundglass opacity. ASSESSMENT: Lung-RADS category 2: Benign RECOMMENDATION: Routine annual low-dose CT screening in 12 months.
== END 2023-05-30 15:13 | disposition home or self-care (01) ==
LOC: HO.CT 15:12
PROVIDERS: PCP Family Medicine; Visit Provider Physician Assistant Medical
DX: F17.210 Nicotine dependence, cigarettes, uncomplicated (principal)
CPT/HCPCS: 71271

== ENCOUNTER 2023-07-18 13:06 | Outpatient (REF) | payer MEDICAID, SELFPAY ==
[2023-07-18 16:16] LABS: Hematocrit 34.9 % (37.0-47.0); Hemoglobin 11.5 g/dl (12.0-16.0); Mean Corpuscular Volume 94.1 fL (80.0-98.0); Mean Platelet Volume 10.8 fL (9.4-12.3); Platelet Count 298 X10*3/uL (160-400); Red Blood Count 3.71 X10*6/uL (4.20-5.50); Red Cell Distribution Width 13.8 % (11.0-16.0)
[2023-07-18 16:40] LABS: Cholesterol 195 mg/dL (<200); HDL Cholesterol 44 mg/dL (>40); LDL Cholesterol Calculated 127 mg/dL (<100); Triglycerides 122 mg/dL (<150)
[2023-07-18 16:52] LABS: Microalbum/Creatinine Ratio Ur 603.3 ug/mg cr (<30)
[2023-07-18 18:06] LABS: Free T4 (Free Thyroxine) 0.86 ng/dL (0.71-1.85)
[2023-07-18 21:32] LABS: Thyroid Stimulating Hormone 1.75 uIU/mL (0.32-4.0); Vitamin D 25-OH Total 49.1 ng/mL (>30)
[2023-07-19 04:35] LABS: HBsAGNum1 0.31 S/CO (0.00-0.99); HIV AB/AG Nonreactive (Nonreactive); HIV Num 1 0.07 S/CO (0.00-0.99); Hepatitis B Surface Antigen Negative (Negative); ~HepC Num1 0.12 S/CO (0.00-0.79); ~Hepatitis B Surface Antibody NONREACTIVE (Nonreactive); ~Hepatitis C Antibody Nonreactive (Nonreactive)
[2023-07-20 06:44] LABS: RPR Rapid Plasma Reagin NON-REACTIVE (NON-REACTIVE)
== END 2023-07-18 13:07 | disposition home or self-care (01) ==
LOC: HO.HHCL 13:06
PROVIDERS: Visit Provider Family Medicine
DX: Z00.00 Encounter for general adult medical examination without abnormal findings (principal); Z11.4 Encounter for screening for human immunodeficiency virus [HIV]; E10.22 Type 1 diabetes mellitus with diabetic chronic kidney disease; N18.30 Chronic kidney disease, stage 3 unspecified
CPT/HCPCS: 36415; 80061; 82043; 82306; 82570; 84439; 84443; 85027; 86592; 86706; 86803; 87340; 87389

== ENCOUNTER 2023-09-06 15:02 | Outpatient (REF) | payer MEDICAID, SELFPAY ==
--- NOTE | ~2023-09-06 | MM_ITS ---
EXAMINATION: MM SCREENING DIGITAL BREAST TOMOSYNTHESIS, BILATERAL CLINICAL INFORMATION: Screening. Asymptomatic. COMPARISON: Mammography: This study is compared with prior exams dating back to 2019. TECHNIQUE: Digital breast tomosynthesis is performed in both the craniocaudal and mediolateral oblique views along with computer-aided detection (CAD). Synthesized 2D images are generated from the tomosynthesis. FINDINGS: The breasts are heterogeneously dense, which may obscure small masses (ACR BI-RADS breast composition Category c). There are no significant masses, abnormal calcifications, or other abnormalities. 2 tissue markers in the medial aspect of the left breast and some residual benign calcifications associated with one of the tissue markers. Few, benign calcifications are present in each breast. MM/MM tomosynthesis screening BI IMPRESSION: No mammographic evidence of malignancy. ASSESSMENT: BI-RADS BI-RADS 2 - Benign Findings RECOMMENDATION: Routine annual mammography screening. 1 year F/U This examination should not preclude the clinical evaluation of a suspicious palpable abnormality. This patient's information was entered into a reminder system with a target due date for their next mammogram.
== END 2023-09-06 15:03 | disposition home or self-care (01) ==
LOC: HO.MAMMO 15:02
PROVIDERS: PCP Family Medicine; Visit Provider Family Medicine
DX: Z12.31 Encounter for screening mammogram for malignant neoplasm of breast (principal)
CPT/HCPCS: 77063; 77067

== ENCOUNTER → 2023-09-06 15:15 | Outpatient (BNV) | payer MEDICAID, SELFPAY | PROVIDERS: PCP Family Medicine; Visit Provider Radiology Diagnostic Radiology | DX: Z12.31 Encounter for screening mammogram for malignant neoplasm of breast (principal) | CPT/HCPCS: 77063; 77067 ==

== ENCOUNTER 2023-09-17 13:39 | Outpatient (AMB) | payer MEDICAID, SELFPAY ==
[2023-09-17 13:55] VITALS: BP 132/63; PULSE 65; BMI 30.7
--- NOTE | 2023-09-17 13:55 | MHC.OFFVIS ---
Vital Signs 09/17/23 13:55 Height 4 ft 9 in Weight 142 lb BMI 30.7 BP 132/63 Blood Pressure Location Lt brachial Position Sitting Pulse 65 Intake Visit Reasons: breast exam, mammo results Intake Note: Patient here for 6m breast exam. Patient c/o: breast tenderness after mammogram. MM: 09-06-23. Ssrs Developer Required: No Accompanied by: Self / Same As Patient Allergies No Known Allergies [No Known Allergies*] Allergy (Verified 09/17/23 13:56) HPI Comments Details: Patient presents for follow-up. She has no new breast issues or complaints although she has had bilateral breast biopsies and has occasional symptoms at the biopsy sites. Both are raina areolar. She has no symptoms of other breast symptoms of discharge, skin changes, or pain. Recent mammogram demonstrates stable findings and recommendations for annual mammography. [facility] Medical History Obesity Chronic low back pain Type 1 diabetes mellitus with stage 3 chronic kidney disease, with long-term current use of insulin Hyperlipidemia Hypertension Personal history of nicotine dependence COPD (chronic obstructive pulmonary disease) History of tuberculosis (~1992) Multiple pulmonary nodules Surgical History H/O colonoscopy History of right breast biopsy (~2004) History of shoulder surgery (~2005) History of foot surgery (~2005) History of hand surgery (~2003) History of carpal tunnel surgery of right wrist (~2002) History of elbow surgery (~2010) History of surgery on left wrist (~2010) History of surgery on right wrist (~2011) Family History Brother Family history of premature coronary artery disease Father Renal disease Diabetes mellitus Mother Diabetes mellitus Maternal Grandmother Bladder cancer Social History Household Members: None Household Members Other:: 3kids Housing: Apartment Are you a primary child care development specialist to a significant other at home: No Patient Tobacco Use Status: Current everyday Tobacco user Tobacco use type: Cigarette Cigarettes Per Day: 15 Years Smoked: 35 yrs service: No Current occupational status: disabled Physical Exam Vital Signs: Last Vital Signs Pulse 65 09/17/23 13:55 BP 132/63 09/17/23 13:55 BMI result Body Mass Index 30.7 Chest Other: Bilateral breast exam demonstrates some scarring bilaterally raina areolar in the region of previous excisional biopsies. No other masses, discharge, skin changes demonstrated. Bilateral periclavicular and axillary exam is negative. GI Other: Abdomen Emil, soft, benign Assessment & Plan Assessment & Plan (1) Encounter for follow-up surveillance of breast cancer: Code(s): Z08 - Encounter for follow-up examination after completed treatment for malignant neoplasm; Z85.3 - Personal history of malignant neoplasm of breast Category: Surgical Plan Current plan is see the patient's 6 months time for surveillance regarding her areolar symptoms and then annual mammogram. All questions answered. Coding Level of Care Code Est Pt Level 4 (21936) Diagnoses Encounter for follow-up surveillance of breast cancer Z08; Z85.3
== END 2023-09-17 14:01 | disposition home or self-care (01) ==
PROVIDERS: PCP Family Medicine; Visit Provider Surgery
DX: Z08 Encounter for follow-up examination after completed treatment for malignant neoplasm (principal); Z85.3 Personal history of malignant neoplasm of breast
CPT/HCPCS: 99214

== ENCOUNTER → 2023-09-17 13:39 | Outpatient (BNVA) | payer MEDICAID, SELFPAY | PROVIDERS: PCP Family Medicine; Visit Provider Surgery | DX: Z08 Encounter for follow-up examination after completed treatment for malignant neoplasm (principal); Z85.3 Personal history of malignant neoplasm of breast | CPT/HCPCS: 99212 ==

== ENCOUNTER 2023-11-19 17:00 | Outpatient (REF) | payer MEDICAID, SELFPAY | END 2023-11-19 17:01 | disposition home or self-care (01) | LOC: HO.HHCLNP 17:00 | PROVIDERS: Visit Provider Family Medicine | DX: R30.0 Dysuria (principal) | CPT/HCPCS: 87086 ==

== ENCOUNTER 2023-11-23 13:38 | Outpatient (REF) | payer MEDICAID, SELFPAY ==
--- NOTE | ~2023-11-23 | XR_ITS ---
EXAMINATION: XR HAND, RIGHT CLINICAL INFORMATION: Pain COMPARISON: None available. TECHNIQUE: PA, lateral, and oblique views of the right hand. FINDINGS: Threaded screw, arthrodesis across the distal interphalangeal joint of the fourth finger, hardware is intact. Mild degenerative osteoarthritic changes involving interphalangeal joints of the second third and fifth digits. No evidence of bone erosions. Bone alignments are satisfactory. XR/XR hand RT min 3V IMPRESSION: * Status post arthrodesis distal interphalangeal joint fourth finger. * Mild DJD. * No radiographic evidence of bone erosions.
--- NOTE | ~2023-11-23 | XR_ITS ---
EXAMINATIONS: XR wrist LT min 3V, XR wrist RT min 3V CLINICAL INFORMATION: Reason for Exam b/l hand pain and swelling COMPARISON: None VIEWS: Frontal lateral and oblique 3 views each side total of 6 views. FINDINGS: Mild degenerative osteoarthritic changes of the first carpometacarpal joint. There is no evidence of acute fracture or dislocation. The distal radius is intact. The radiocarpal, intercarpal and carpal/metacarpal joints are normal. Ulnar styloid is intact. The scapholunate joint is normal. The lunate is properly positioned. The [id number] access is normal. The scaphoid bone is a properly articulating. XR/XR wrist RT min 3V IMPRESSION: Mild DJD of the first carpal metacarpal joints. Otherwise No acute osseous changes to explain patient's pain symptoms. No fracture or dislocation. No evidence of erosions. Bone alignments are satisfactory.
--- NOTE | ~2023-11-23 | XR_ITS ---
EXAMINATION: XR HAND, LEFT CLINICAL INFORMATION: Hand pain and swelling. COMPARISON: None available. TECHNIQUE: PA, lateral, and oblique views of the left hand. FINDINGS: Degenerative changes are present with narrowing at the interphalangeal joints, distal greater than proximal. Some mild degenerative changes seen at the 1st CMC joint. No chondrocalcinosis, fractures or dislocations. XR/XR hand LT min 3V IMPRESSION: Mild degenerative changes as described above. Electronically signed by: Herbie Jackson MD 01/10/2024 09:58 PM EDT
--- NOTE | ~2023-11-23 | XR_ITS ---
EXAMINATIONS: XR wrist LT min 3V, XR wrist RT min 3V CLINICAL INFORMATION: Reason for Exam b/l hand pain and swelling COMPARISON: None VIEWS: Frontal lateral and oblique 3 views each side total of 6 views. FINDINGS: Mild degenerative osteoarthritic changes of the first carpometacarpal joint. There is no evidence of acute fracture or dislocation. The distal radius is intact. The radiocarpal, intercarpal and carpal/metacarpal joints are normal. Ulnar styloid is intact. The scapholunate joint is normal. The lunate is properly positioned. The [id number] access is normal. The scaphoid bone is a properly articulating. 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 Otherwise No acute osseous changes to explain patient's pain symptoms. No fracture or dislocation. No evidence of erosions. Bone alignments are satisfactory.
[2023-11-23 16:12] LABS: MANUAL DIFF FLAG NO
[2023-11-23 16:14] LABS: Basophils Absolute Auto 0.1 X10*3/uL (0.0-0.2); Basophils Percent Auto 1.2 % (0-2); Eosinophils Absolute Auto 0.3 X10*3/uL (0.0-0.4); Eosinophils Percent Auto 2.5 % (0-4); Hematocrit 35.4 % (37.0-47.0); Hemoglobin 12.3 g/dl (12.0-16.0); Imm Gran Abs Auto 0.03 X10*3/uL (0.00-0.03); Imm Gran Pct Auto 0.3 % (0.0-0.4); Lymphocytes Absolute Auto 2.4 X10*3/uL (1.2-4.9); Lymphocytes Percent Auto 23.9 % (20-40); Mean Corpuscular HGB Conc 34.7 g/dl (31.0-35.0); Mean Corpuscular Hemoglobin 31.1 pg (27.0-33.0); Mean Corpuscular Volume 89.4 fL (80.0-98.0); Mean Platelet Volume 9.5 fL (9.4-12.3); Monocytes Absolute Auto 0.6 X10*3/uL (0.1-1.2); Neutrophils Absolute Auto 6.6 x10*3/uL (2.0-8.3); Neutrophils Percent Auto 66.1 % (45-73); Platelet Count 382 X10*3/uL (160-400); Red Blood Count 3.96 X10*6/uL (4.20-5.50); Red Cell Distribution Width 12.9 % (11.0-16.0)
[2023-11-23 16:15] LABS: Basophils Absolute Auto 0.1 X10*3/uL (0.0-0.2); Eosinophils Absolute Auto 0.2 X10*3/uL (0.0-0.4); Eosinophils Percent Auto 2.4 % (0-4); Hematocrit 35.9 % (37.0-47.0); Hemoglobin 12.5 g/dl (12.0-16.0); Imm Gran Abs Auto 0.04 X10*3/uL (0.00-0.03); Imm Gran Pct Auto 0.4 % (0.0-0.4); Lymphocytes Absolute Auto 2.4 X10*3/uL (1.2-4.9); Lymphocytes Percent Auto 25.3 % (20-40); Mean Corpuscular HGB Conc 34.8 g/dl (31.0-35.0); Mean Corpuscular Hemoglobin 31.2 pg (27.0-33.0); Mean Corpuscular Volume 89.5 fL (80.0-98.0); Mean Platelet Volume 9.8 fL (9.4-12.3); Monocytes Absolute Auto 0.6 X10*3/uL (0.1-1.2); Monocytes Percent Auto 6.5 % (2-11); Neutrophils Absolute Auto 6.2 x10*3/uL (2.0-8.3); Neutrophils Percent Auto 64.4 % (45-73); Platelet Count 381 X10*3/uL (160-400); Red Blood Count 4.01 X10*6/uL (4.20-5.50); Red Cell Distribution Width 12.7 % (11.0-16.0); White Blood Count 9.6 X10*3/uL (4.8-10.8)
[2023-11-23 17:23] LABS: Erythrocyte Sedimentation Rate 15 MM/HR (0-20)
[2023-11-23 20:31] LABS: Creatinine Urine 34.78 mg/dL; Protein/Creatinine Ratio, Ur 1.09 (<0.2); Total Protein Urine Random 38 mg/dL (<12)
[2023-11-24 00:46] LABS: Rheumatoid Factor < 13.0 IU/mL (<15.0)
[2023-11-24 01:27] LABS: Alanine Aminotransferase 15 U/L (0-31); Alkaline Phosphatase 102 U/L (39-117); Anion Gap 11 (12-20); Aspartate Amino Transferase 19 U/L (5-31); Bilirubin Direct 0.1 mg/dL (0.0-0.5); Bilirubin Total 0.3 mg/dL (0.0-1.0); Blood Urea Nitrogen 19 mg/dL (9-16); C Reactive Protein 0.44 mg/dL (< or = 0.50); Calcium 9.6 mg/dL (8.4-10.2); Carbon Dioxide 26 mmol/L (22-29); Chloride 93 mmol/L (96-108); Cholesterol 114 mg/dL (<200); Estimated Glomerular Filt Rate 37; Glucose Random 177 mg/dL (60-115); HDL Cholesterol 39 mg/dL (>40); LDL Cholesterol Calculated 52 mg/dL (<100); Potassium 4.6 mmol/L (3.3-5.1); Sodium 125 mmol/L (135-145); Total Protein 6.8 g/dL (6.5-8.0); Triglycerides 119 mg/dL (<150); Uric Acid 3.5 mg/dL (2.4-5.7)
[2023-11-24 01:28] LABS: Anion Gap 12 (12-20); Blood Urea Nitrogen 20 mg/dL (9-16); Calcium 9.5 mg/dL (8.4-10.2); Carbon Dioxide 25 mmol/L (22-29); Chloride 93 mmol/L (96-108); Estimated Glomerular Filt Rate 37; Iron 78 mcg/dL (30-160); Percent Iron Saturation 28 % (15-50); Potassium 4.7 mmol/L (3.3-5.1); Sodium 125 mmol/L (135-145); Total Iron Binding Capacity 282 mcg/dL (228-428); Unsaturated Iron Binding 204 ug/dL
[2023-11-24 01:52] LABS: Free T4 (Free Thyroxine) 0.86 ng/dL (0.71-1.85); Thyroid Stimulating Hormone 1.23 uIU/mL (0.32-4.0); Vitamin D 25-OH Total 51.6 ng/mL (>30)
[2023-11-24 01:53] LABS: Vitamin D 25-OH Total 51.3 ng/mL (>30)
[2023-11-24 03:58] LABS: Estimated Average Glucose 154 mg/dL
[2023-11-24 11:28] LABS: Parathyroid Hormone Intact 60.7 pg/mL (8.7-77.1)
[2023-11-26 19:09] LABS: Lyme Abs Screen <0.90 index
[2023-11-30 09:28] LABS: Anti Nuclear Antibody Screen NEGATIVE (NEGATIVE)
== END 2023-11-23 13:39 | disposition home or self-care (01) ==
LOC: HO.HHCL 13:38
PROVIDERS: Internal Medicine Nephrology; Visit Provider Family Medicine
DX: M79.89 Other specified soft tissue disorders (principal); I12.9 Hypertensive chronic kidney disease with stage 1 through stage 4 chronic kidney disease, or unspecified chronic kidney disease; N18.32 Chronic kidney disease, stage 3b
CPT/HCPCS: 36415; 73110; 73130; 80048; 80051; 80061; 80076; 82306; 82310; 82565; 82570; 83036; 83540; 83970; 84156; 84439; 84443; 84520; 84550; 85025; 85652; 86038; 86140; 86431; 86617; 86618

== ENCOUNTER 2024-02-07 13:38 | Outpatient (AMB) | payer MEDICAID, SELFPAY ==
--- NOTE | 2024-02-07 13:41 | MHC.OFFVIS ---
Vital Signs 02/07/24 13:43 Height 4 ft 9 in Weight 143 lb 4.807 oz BMI 31.0 BP 138/62 Blood Pressure Location Rt brachial Position Sitting Pulse 62 Pulse Source Doppler Pulse Oximetry (%) 97 Oxygen Delivery Method Room Air Intake Visit Reasons: copd Allergies No Known Allergies [No Known Allergies*] Allergy (Verified 09/17/23 13:56) HPI HPI copd: Details: 59-year-old lady, active 35 pack year smoker, followed for COPD and pulmonary nodules. Patient has been using Anoro and albuterol MDI with slowly worsening symptom control. She is also undergoing cardiac workup with planned left heart catheterization in the next months. She has complain of worsening dyspnea on exertion, though she denies an acute exacerbation. [facility] Medical History Obesity Chronic low back pain Type 1 diabetes mellitus with stage 3 chronic kidney disease, with long-term current use of insulin Hyperlipidemia Hypertension Personal history of nicotine dependence COPD (chronic obstructive pulmonary disease) History of tuberculosis (~1992) Multiple pulmonary nodules Surgical History H/O colonoscopy History of right breast biopsy (~2004) History of shoulder surgery (~2005) History of foot surgery (~2005) History of hand surgery (~2003) History of carpal tunnel surgery of right wrist (~2002) History of elbow surgery (~2010) History of surgery on left wrist (~2010) History of surgery on right wrist (~2011) Family History Brother Family history of premature coronary artery disease Father Renal disease Diabetes mellitus Mother Diabetes mellitus Maternal Grandmother Bladder cancer Social History Household Members: None Household Members Other:: 3kids Housing: Apartment Are you a primary career information specialist to a significant other at home: No Patient Tobacco Use Status: Current everyday Tobacco user Tobacco use type: Cigarette Cigarettes Per Day: 15 Years Smoked: 35 yrs service: No Current occupational status: disabled Review of Systems Const Denies daytime sleepiness, Denies excessive sweating, Denies fatigue, Denies fever(s), Denies lethargy, Denies malaise, Denies night sweats, Denies snoring and Denies weight loss Eyes Denies blurry vision and Denies itchy eyes ENT Denies nasal congestion, Denies post nasal drip, Denies sinus pain, Denies sinus pressure and Denies other ( Thrush) Card Denies chest pain, Denies pedal edema, Denies dyspnea, Reports dyspnea on exertion, Denies orthopnea and Denies paroxysmal nocturnal dyspnea Resp Denies cough, Denies hemoptysis, Denies excessive phlegm production, Denies dyspnea, Reports dyspnea on exertion, Denies snoring and Denies wheezing GI Denies abdominal pain and Denies heartburn Musc Denies myalgias, Denies arthralgias and Denies joint swelling Skin/Breast Denies rash Neuro Denies memory loss and Denies seizure-like activity Psych Denies abnormal sleep pattern, Denies anxiety and Denies memory loss Endo Denies excessive sweating, Denies fatigue and Denies heat intolerance Everardo/Lymph Denies easy bruising Aller/Immun Denies itchy eyes, Denies seasonal rhinorrhea and Denies wheezing Physical Exam Vital Signs: Last Vital Signs Pulse 62 02/07/24 13:43 BP 138/62 02/07/24 13:43 Pulse Ox 97 02/07/24 13:43 Oxygen Delivery Method Room Air 02/07/24 13:43 BMI result Body Mass Index 31.0 Const General: no acute distress and alert Nutritional Appearance: not obese Orientation/consciousness: Other orientation findings ( oriented) HEENT Head: Yes atraumatic Eyes General: appearance normal, both eyes and all related structures Sclerae: sclerae normal EOM: EOMs intact bilaterally Neck Neck: Yes supple Lymphatic: no lymphadenopathy noted Resp Effort & Inspection: normal respiratory effort and no use of accessory muscles Auscultation: clear to auscultation bilaterally Cardio Rate: regular rate Rhythm: regular rhythm Heart sounds: no gallops, no murmurs and no rubs Skin General skin exam: other ( warm) Extrem General: No clubbing, No cyanosis and No edema Assessment & Plan Assessment & Plan (1) COPD (chronic obstructive pulmonary disease): Comment: Report any respiratory illnesses Code(s): J44.9 - Chronic obstructive pulmonary disease, unspecified Category: Medical Plan: Suboptimal control on Anoro and albuterol MDI. Patient is also undergoing cardiac workup. Will obtain full PFT. (2) Personal history of nicotine dependence: Comment: (current smoker, onset 21, x 34yrs) Code(s): Z87.891 - Personal history of nicotine dependence Category: Medical Plan: Results of lung cancer screening CT reviewed former no worrisome nodules at that time. Continue with yearly screening, next in May of 2024, ordered. Orders: Orders PFT pulmonary function test Today J44.9 - Chronic obstructive pulmonary disease, unspecified CT lung screening 05/09/24 Z87.891 - Personal history of nicotine dependence Medications: Changed From albuterol sulfate 90 mcg/actuation (ProAir HFA) 2 puffs inhalation QID To albuterol sulfate 90 mcg/actuation 2 puffs inhalation QID PRN 1 ea 6RF shortness of breath or wheezing Refilled umeclidinium-vilanterol 62.5-25 mcg/actuation (Anoro Ellipta) 1 inh inhalation DAILY 30 days 1 ea 6RF Coding Level of Care Code Est Pt Level 4 (01631) Diagnoses COPD (chronic obstructive pulmonary disease) J44.9 Personal history of nicotine dependence Z87.891
[2024-02-07 13:43] VITALS: BP 138/62; PULSE 62; O2SAT 97; BMI 31.0
== END 2024-02-07 14:00 | disposition home or self-care (01) ==
PROVIDERS: PCP Family Medicine; Referring Provider Family Medicine; Visit Provider Internal Medicine Pulmonary Disease
DX: J44.9 Chronic obstructive pulmonary disease, unspecified (principal); Z87.891 Personal history of nicotine dependence
CPT/HCPCS: 99214

== ENCOUNTER → 2024-02-07 13:38 | Outpatient (BNVA) | payer MEDICAID, SELFPAY | PROVIDERS: PCP Family Medicine; Visit Provider Internal Medicine Pulmonary Disease | DX: J44.9 Chronic obstructive pulmonary disease, unspecified (principal); R91.8 Other nonspecific abnormal finding of lung field; Z87.891 Personal history of nicotine dependence | CPT/HCPCS: 99212 ==

== ENCOUNTER 2024-03-20 10:36 | Outpatient (REF) | payer MEDICAID, SELFPAY ==
--- NOTE | ~2024-03-20 | XR_ITS ---
EXAMINATION: XR FOOT, RIGHT XR FOOT, LEFT CLINICAL INFORMATION: Bilateral heel pain and swelling. COMPARISON: Left ankle radiographs dated 08/09/2022. TECHNIQUE: AP, oblique, and lateral views of the right and left foot. FINDINGS: RIGHT FOOT: No acute fracture or dislocation. No joint space narrowing or marginal osteophytes. No osseous erosion. Tiny plantar and dorsal calcaneal spurs. Faint atherosclerotic calcifications. LEFT FOOT: No acute fracture or dislocation. No joint space narrowing or marginal osteophytes. No osseous erosion. Moderate plantar and tiny dorsal calcaneal spurs. XR/XR foot RT min 3V IMPRESSION: RIGHT FOOT: Tiny plantar and dorsal calcaneal spurs. LEFT FOOT: Moderate plantar and tiny dorsal calcaneal spurs. Electronically signed by: Makr Sharp MD 03/20/2024 04:08 PM [facility]
--- NOTE | ~2024-03-20 | XR_ITS ---
EXAMINATION: XR HAND, RIGHT CLINICAL INFORMATION: Right hand pain and swelling. COMPARISON: None available. TECHNIQUE: PA, lateral, and oblique views of the right hand. FINDINGS: No acute fracture or dislocation. Normal carpal alignment. Mild joint space narrowing with small marginal osteophytes scattered throughout the interphalangeal joints. No osseous erosion. Orthopedic screw across the 4th middle and distal phalanges without evidence of hardware complication. Fusion across the distal interphalangeal joint. Atherosclerotic calcifications. XR/XR hand RT min 3V IMPRESSION: 1. Mild degenerative arthritis scattered throughout the interphalangeal joints. 2. Orthopedic screw across the 4th middle and distal phalanges without evidence of hardware complication. Electronically signed by: Mark Sharp MD 03/20/2024 04:08 PM [facility]
--- NOTE | ~2024-03-20 | XR_ITS ---
EXAMINATION: XR FOOT, RIGHT XR FOOT, LEFT CLINICAL INFORMATION: Bilateral heel pain and swelling. COMPARISON: Left ankle radiographs dated 08/09/2022. TECHNIQUE: AP, oblique, and lateral views of the right and left foot. FINDINGS: RIGHT FOOT: No acute fracture or dislocation. No joint space narrowing or marginal osteophytes. No osseous erosion. Tiny plantar and dorsal calcaneal spurs. Faint atherosclerotic calcifications. LEFT FOOT: No acute fracture or dislocation. No joint space narrowing or marginal osteophytes. No osseous erosion. Moderate plantar and tiny dorsal calcaneal spurs. XR/XR foot LT min 3V IMPRESSION: RIGHT FOOT: Tiny plantar and dorsal calcaneal spurs. LEFT FOOT: Moderate plantar and tiny dorsal calcaneal spurs. Electronically signed by: Mark Sharp MD 03/20/2024 04:08 PM [facility]
== END 2024-03-20 10:37 | disposition home or self-care (01) ==
LOC: HO.HHCX 10:36
PROVIDERS: Visit Provider Family Medicine
DX: M79.671 Pain in right foot (principal); M79.672 Pain in left foot; R60.0 Localized edema
CPT/HCPCS: 73130; 73630

== ENCOUNTER 2024-05-09 15:03 | Outpatient (REF) | payer MEDICAID, SELFPAY ==
[2024-05-09 09:27] VITALS: PULSE 66; O2SAT 98
--- NOTE | 2024-05-09 15:09 | PFT_ITS ---
Indication: COPD Spirometry [FEV1 to FVC 88%; FEV1 1.71 L; FVC 1.95 L. No significant response to bronchodilators noted.] Lung Volumes [Total lung capacity 73% predicted; expiratory reserve volume could not be as dressed. To note most of the lung volume results were not meeting ats guidelines. Therefore may be suboptimal.] Diffusion Capacity [DLCO 62% predicted] Comparisons [none] Interpretation [No obstructive ventilatory defects. No significant response to bronchodilators noted. There appears to be a mild restrictive ventilatory defect although the lung volume results may be suboptimal. The patient also appears to have a mild diffusion impairment. Clinical correlation warranted. If asthma is in differential methacholine challenge may be helpful to assess for hyperactive airways. ] MTDD
== END 2024-05-09 15:04 | disposition home or self-care (01) ==
LOC: HO.RESP 15:03
PROVIDERS: PCP Family Medicine; Visit Provider Internal Medicine Pulmonary Disease
DX: J44.9 Chronic obstructive pulmonary disease, unspecified (principal)
CPT/HCPCS: 94010; 94640; 94727; 94729

== ENCOUNTER → 2024-05-09 15:09 | Outpatient (BNV) | payer MEDICAID, SELFPAY | PROVIDERS: PCP Family Medicine; Visit Provider Hospitalist | DX: J44.9 Chronic obstructive pulmonary disease, unspecified (principal) | CPT/HCPCS: 94060; 94727; 94729 ==

== ENCOUNTER → 2024-06-10 15:43 | Outpatient (BNV) | payer MEDICAID, SELFPAY | PROVIDERS: PCP Family Medicine; Visit Provider Radiology Diagnostic Radiology | DX: F17.210 Nicotine dependence, cigarettes, uncomplicated (principal) | CPT/HCPCS: 71271 ==

== ENCOUNTER 2024-06-17 13:44 | Outpatient (AMB) | payer MEDICAID, SELFPAY ==
[2024-06-17 13:45] VITALS: BP 152/72; PULSE 77; O2SAT 93; BMI 31.7
--- NOTE | 2024-06-17 13:45 | MHC.OFFVIS ---
Vital Signs 06/17/24 13:45 Height 4 ft 9 in Weight 146 lb 9.718 oz BMI 31.7 BP 152/72 H Blood Pressure Location Rt brachial Position Sitting Pulse 77 Pulse Source Doppler Pulse Oximetry (%) 93 Oxygen Delivery Method Room Air Intake Visit Reasons: copd Restaurant Line Cook Required: Yes Restaurant Line Cook Name: Marium Jf Aleman Allergies No Known Allergies [No Known Allergies*] Allergy (Verified 06/17/24 13:54) HPI HPI copd: Details: 59-year-old lady, active 35 pack year smoker, followed for COPD and pulmonary nodules. She continues on Anoro and albuterol MDI with reasonable control of his symptoms. She denies recent exacerbations. Patient completed her lung cancer screening follow-up CT chest that shows stable pulmonary nodules. She denies acute exacerbations. [facility] Medical History (Updated 03/25/24 @ 13:28 by Rachael Monet PA-C) Nicotine dependence, cigarettes, uncomplicated Obesity Chronic low back pain Type 1 diabetes mellitus with stage 3 chronic kidney disease, with long-term current use of insulin Hyperlipidemia Hypertension COPD (chronic obstructive pulmonary disease) History of tuberculosis (~1992) Multiple pulmonary nodules Surgical History (Updated 09/17/23 @ 14:00 by Dylan Small MD) H/O colonoscopy History of right breast biopsy (~2004) History of shoulder surgery (~2005) History of foot surgery (~2005) History of hand surgery (~2003) History of carpal tunnel surgery of right wrist (~2002) History of elbow surgery (~2010) History of surgery on left wrist (~2010) History of surgery on right wrist (~2011) Family History Brother Family history of premature coronary artery disease Father Renal disease Diabetes mellitus Mother Diabetes mellitus Maternal Grandmother Bladder cancer Social History (Updated 06/17/24 @ 13:52 by LESTER Tran) Household Members: Children Housing: Apartment Are you a primary care companion to a significant other at home: No Patient Tobacco Use Status: Current everyday Tobacco user Tobacco use type: Cigarette Cigarettes Per Day: 10 Years Smoked: 35, Started around age 18. 2PPD service: No Current occupational status: disabled Review of Systems Const Denies daytime sleepiness, Denies excessive sweating, Denies fatigue, Denies fever(s), Denies lethargy, Denies malaise, Denies night sweats, Denies snoring and Denies weight loss Eyes Denies blurry vision and Denies itchy eyes ENT Denies nasal congestion, Denies post nasal drip, Denies sinus pain, Denies sinus pressure and Denies other ( Thrush) Card Denies chest pain, Denies pedal edema, Denies dyspnea, Denies orthopnea and Denies paroxysmal nocturnal dyspnea Resp Denies cough, Denies hemoptysis, Denies excessive phlegm production, Denies dyspnea, Denies snoring and Denies wheezing GI Denies abdominal pain and Denies heartburn Musc Denies myalgias, Denies arthralgias and Denies joint swelling Skin/Breast Denies rash Neuro Denies memory loss and Denies seizure-like activity Psych Denies abnormal sleep pattern, Denies anxiety and Denies memory loss Endo Denies excessive sweating, Denies fatigue and Denies heat intolerance Everardo/Lymph Denies easy bruising Aller/Immun Denies itchy eyes, Denies seasonal rhinorrhea and Denies wheezing Physical Exam Vital Signs: Last Vital Signs Pulse 77 06/17/24 13:45 BP 152/72 H 06/17/24 13:45 Pulse Ox 93 06/17/24 13:45 Oxygen Delivery Method Room Air 06/17/24 13:45 BMI result Body Mass Index 31.7 Const General: no acute distress and alert Nutritional Appearance: not obese Orientation/consciousness: Other orientation findings ( oriented) HEENT Head: Yes atraumatic Eyes General: appearance normal, both eyes and all related structures Sclerae: sclerae normal EOM: EOMs intact bilaterally Neck Neck: Yes supple Lymphatic: no lymphadenopathy noted Resp Effort & Inspection: normal respiratory effort and no use of accessory muscles Auscultation: clear to auscultation bilaterally Cardio Rate: regular rate Rhythm: regular rhythm Heart sounds: no gallops, no murmurs and no rubs Skin General skin exam: other ( warm) Extrem General: No clubbing, No cyanosis and No edema Assessment & Plan Assessment & Plan (1) COPD (chronic obstructive pulmonary disease): Code(s): J44.9 - Chronic obstructive pulmonary disease, unspecified Category: Medical Plan: Well controlled on Anoro and albuterol MDI. Continue current regimen. (2) Nicotine dependence, cigarettes, uncomplicated: Comment: (onset 21, x 38yrs, 20+PYH) Code(s): F17.210 - Nicotine dependence, cigarettes, uncomplicated Category: Medical Plan: Results of lung cancer screening from June of 2024 reviewed, no worrisome nodules. Continue with yearly screening, next in June of 2025. Coding Level of Care Code Est Pt Level 4 (28506) Diagnoses COPD (chronic obstructive pulmonary disease) J44.9 Nicotine dependence, cigarettes, uncomplicated F17.210
== END 2024-06-17 14:07 | disposition home or self-care (01) ==
PROVIDERS: PCP Family Medicine; Visit Provider Internal Medicine Pulmonary Disease
DX: J44.9 Chronic obstructive pulmonary disease, unspecified (principal); F17.210 Nicotine dependence, cigarettes, uncomplicated
CPT/HCPCS: 99214

== ENCOUNTER → 2024-06-17 13:44 | Outpatient (BNVA) | payer MEDICAID, SELFPAY | PROVIDERS: PCP Family Medicine; Visit Provider Internal Medicine Pulmonary Disease | DX: J44.9 Chronic obstructive pulmonary disease, unspecified (principal); F17.210 Nicotine dependence, cigarettes, uncomplicated | CPT/HCPCS: 99212 ==

== ENCOUNTER 2024-09-10 15:10 | Outpatient (REF) | payer MEDICAID, SELFPAY ==
--- OUTSIDE RECORDS SUMMARY | 2024-09-10 16:08 | XMS_ITS ---
Author Organization [employer] Address [address] [place] [address] Care Team Providers Care Carbider Name Role Phone Marium Agudelo DO Primary Care Provider CHW Complex Status:Outreach In Progress (Enrolling) Start date:08/27/2024 Enrollment reason:ADT Feed Overview ED- Pt went to [facility] ED on 08/26/24. Please outreach for enrollment. Case Team Name Relationship Phone Tessa Arreola (Responsible Staff) [phone] Continued Care and Services Coordination
--- OUTSIDE RECORDS SUMMARY | 2024-09-10 16:08 | XMS_ITS | Encounter Summary ---
Author Organization [employer] Address [address] [place] [address] Care Team Providers Care Drilling Foreman Name Role Phone Marium Agudelo DO Primary Care Provider + [phone] Encounter Details Date Type Department Care Team ([facility] st Contact Info) Description 09/10/2024 Patient Outreach [facility] [address] [place], [place] [id number] Marium Agudelo DO [address] [place] [address] Social History Tobacco Use Types Packs/Day Years Used Date Smoking Tobacco: Every Day Cigarettes Passive Smoke Exposure: Current Smokeless Tobacco: Never Alcohol Use Standard Drinks/Week Comments Never 0 (1 standard drink = 0.6 oz pur e alcohol) Alcohol Answer Date Recorded Frequency of Alcohol Consumption Not on file 07/18/2023 Average Number of Drinks Not on file 024 Frequency of Binge Drinking Not on file 07/05 Score 0 07/18/2023 Depression Answer Date Recorded Patient Health Questionnaire-9 Score 0 07/18/2023 Patient Health Questionnaire-9 Score 0 07/18/2023 Last PHQ-9: Questionnaire Data Not on file 0 07/18/2023 Housing Stability Answer Date Recorded What is your housing situation today? I have montserr[place] vences 07/18/[address] you li ve. Do you have problems with any of the following? None of the above 07/18/2023 Food Insecurity Answer Date Recorded Within the past 12 months, y ou worried that your food would run out before you got money to buy more: Never True 07/18/2023 Within the past 12 months,th e food you bought just didn't last and you didn't have enough money to get more: Never True Transportation Answer Date Recorded In the past 12 months, has l ack of transportation kept you from medical appts, meetings, work or from getting things needed for daily living? No 07/18/2023 Utilities Answer Date Recorded In the past 12 months, has t he electric, gas, oil or water company threatened to shut off services in your home? No 07/18/2023 Depression Answer Date Recorded Patient Health Questionnaire-2 Score 0 07/18/2023 Internet Access Answer Date Recorded Internet Access Q1 Yes 03/06/2024 Internet Access Q2 Not on file 03/06/2024 Comments Unknown Sex and Gender Information Value Date Recorded Sex Assigned at Female 03/06/2022 10:17 AM EDT Legal Sex Female 10:17 AM EDT Gender Identity Female 03/06/2022 10:17 AM EDT Sexual Orientation Straight 03/06/2022 10 :17 AM EDT documented as of this encounter Plan of Treatment Upcoming Encounters Date Type Department Care Team (Late st Contact Info) Description 10/07/2024 1:00 PM EDT Clinical Support [facility] [address] [place] [address] Zonia Padilla RN 12/22/2024 2:30 PM EDT Office Visit [facility] [address] [place] [address] Abdirahman, Amber, OD [address] [place] [address] documented as of this encounter Visit Diagnoses Not on filedocumented in this encounter Additional Health Concerns Assessment Noted Time PHQ-9 Depression Total Score: 0 07/18/19 24 12:09 PM EDT documented as of this encounter Care Teams Drilling Foreman Relationship Specialty Start Date End Date Marium Agudelo DO [address] [place] [address] PCP - General Family Medicine 01/24/19 documented as of this encounter
--- OUTSIDE RECORDS SUMMARY | 2024-09-10 16:08 | XMS_ITS | Clinical Summary ---
Author Organization [facility] Address [address] [facility] [address] [place] [address] Phone Care Team Providers Care Magnetizer Name Role Phone Marium Agudelo DO Primary Care Provider Unava ilable Allergies No known active allergies Medications clonazePAM (KlonoPIN) 1 MG tablet Take 1 tablet by mouth 2 (two) times a day 7 Active pantoprazole (PROTONIX) 40 MG EC tablet Take 1 tablet by mouth 1 (one) time each day 7 Active DOK 100 MG capsule TK 1 C PO BID PRN 0 Active amitriptyline (ELAVIL) 10 MG tablet TK 1 T PO QHS 0 Active baclofen (LIORESAL) 10 MG tablet TK 1 T PO TID PRF MUSCLE SPASMS/PAIN 0 Active loratadine (CLARITIN) 10 MG tablet TK 1 T PO QD 0 Active Senna-Lax 8.6 MG tablet TK 2 TS PO QD PRF CONSTIPATION 0 Active acetaminophen (TYLENOL) 500 MG tablet Take by mouth every 6 (six) hours if needed for mild pain Active Aspirin Low Dose 81 MG EC tablet Take 81 mg by mouth 1 (one) time each day 1 Active gabapentin (NEURONTIN) 300 MG capsule TAKE 1 CAPSULE BY MOUTH THREE TIMES DAILY 1 Active OXcarbazepine (TRILEPTAL) 300 MG tablet Take 300 mg by mouth 2 (two) times a day Active glucose 4 g chewable tablet Chew 16 g if needed for low blood sugar Active insulin lispro (HumaLOG) 100 UNIT/ML injection Inject under the skin 3 (three) times a day before meals Active polyethylene glycol (GLYCOLAX) 17 g packet Take 17 g by mouth 1 (one) time each day Active Naloxone HCl (Narcan) 4 MG/0.1ML liquid Administer into affected nostril(s) Active nicotine (NICODERM CQ) 21 MG/24HR Place 1 patch on the skin 1 (one) time each day at the same time Active zolpidem (Ambien) 10 MG tablet Take 10 mg by mouth at night if needed for sleep Active atorvastatin (LIPITOR) 40 MG tablet Take 40 mg by mouth 1 (one) time each day Active cilostazol (PLETAL) 50 MG tablet Take 50 mg by mouth in the morning and 50 mg in the evening. Active oxyCODONE-aceta minophen (PERCOCET) 5-325 MG per tablet Take 1 tablet by mouth every 4 (four) hours if needed for moderate pain Active ciprofloxacin (CIPRO) 500 MG tablet TAKE 1 TABLET BY MOUTH IN THE AM AND 1 TABLET IN THE PM. DO THIS FOR 5 DAYS 10 tablet 2 Active atorvastatin (LIPITOR) 20 MG tablet Take 1 tablet (20 mg total) by mouth 1 (one) time each day 90 tablet 3 3 Active FREESTYLE LITE test strip TEST BLOOD SUGAR FOUR TIMES DAILY 4 Active Insulin Disposable Pump (Omnipod 5 G6 Pods, Gen 5,) misc CHANGE POD EVERY 3 DAYS 4 Active carvedilol (COREG) 12.5 MG tablet Take 1 tablet (12.5 mg total) by mouth in the morning and 1 tablet (12.5 mg total) in the evening. Take with meals. 180 tablet 3 4 12/19/19 25 Active metoprolol succinate XL (Toprol XL) 25 MG 24 hr tablet Take 1 tablet (25 mg total) by mouth 1 (one) time each day Do not crush or chew. 30 tablet 11 4 04/14/20 25 Active lisinopril 40 MG tablet TAKE 1 TABLET(40 MG) BY MOUTH 1 TIME EACH DAY 90 tablet 3 5 Active Active Problems Problem Noted Date Diagnosed Date Cystitis 11/20/2023 Other iron deficiency anemia 02/21/2022 Cigarette smoker (5-9 cigarettes/day) 02/21/2022 Stage 3b chronic kidney disease 08/16/2020 Renal disorder due to type 1 diabetes mellitus 0 07/01/2019 Hypertensive disorder 05/22/2014 Type 1 diabetes mellitus 05/22/2014 Resolved Problems Problem Noted Date Diagnosed Date Resolved Date Stage 3a chronic kidney disease 02/22/2021 06/20/2021 Hypertensive heart and chron ic kidney disease without heart failure, with stage 1 through stage 4 chronic kidney disease, or unspecified chronic kidney disease 02/05/202008/11 Chronic kidney disease due to hypertension 07/01/2019 08/11/2020 Smoker 07/01/2019 08/11/2020 Asthma 05/25/2014 02/22/2021 H/O Spinal surgery 05/25/2014 1 Overview (07/01/2019): Per pt Disorder of tendon 05/25/2014 1 Overview (07/01/2019): Both hands, wrists and shoulders, [facility], Dr. Newell, [address] [place] [address]. - numerous hand surgeries: carpal tunnel releases, multiple trigger finger releases, infection and tendon reconstruction. Chronic kidney disease 05/22/201402/22 Pain in female pelvis 05/22/20142020 Overview (07/01/2019): 12/[facility]009 [facility]: Normal sonographic appearance of the uterus and right ovary. The left ovary was not visualized. Patient encounter status 05/22/201411/2020 Encounters Date Type Department Care Team Description 09/05/2024 Office Communication [facility], [address] [place] [address] Kera Pascal 07/14/2024 Refill [facility] [address] [place] [address] Johan Giron MD 06/18/2024 Orders Only [facility] [address] [place] [address] Johan Giron MD from Last 3 Months Family History Medical History Relation Comments Diabetes Child 1 Son Hypertension Child 1 Son Diabetes Child 2 3 children Hypertension Child 3 son Diabetes Father Hypertension Father Kidney disease Father ESRD at age 28 Cancer Mother Mat. Grandfather - Bladder cancer/grandmother - ovarian Hypertension Mother Diabetes Sibling 1 Brother Hypertension Sibling 1 Brother Heart disease Sibling 2 brother Stroke Sibling 3 brother Diabetes Sibling 4 brother Hypertension Sibling 5 brother Relation Status Comments Child 1 Child 2 Child 3 Father Mother Alive Sibling 1 Sibling 2 Sibling 3 Sibling 4 Sibling 5 Social History Tobacco Use Types Packs/Day Years Used Date Smoking Tobacco: Every Day Cigarettes Alcohol Use Standard Drinks/Week Comments No 0 (1 standard drink = 0.6 oz pur e alcohol) Comments Unknown Sex and Gender Information Value Date Recorded Sex Assigned at Not on file Legal Sex Female 4:36 PM EST Gender Identity Not on file Sexual Orientation Not on file Last Filed Vital Signs Vital Sign Reading Time Taken Comments Blood Pressure 146/74 08/08/2021 3:55 PM EDT Pulse 74 03/06/2019 12:00 PM EDT Temperature - - Respiratory Rate 16 03/06/2019 12:00 PM EDT Oxygen Saturation - - Inhaled Oxygen Concentration - - Weight 65.3 kg (144 lb) 08/08/2021 3:55 PM EDT Height 149.9 cm (4' 11 ) 08/08/2021 3:55 PM EDT Body Mass Index 29.08 08/08/2021 3:55 PM EDT Plan of Treatment Upcoming Encounters Date Type Department Care Team (Late st Contact Info) Description 09/23/2024 3:00 PM EDT Office Visit [facility], [address] [place] [address] Johan Giron MD [address] [place] [address] Health Maintenance Due Date Last Done Comments Breast Cancer Screening 1965 Hepatitis B Vaccine (1 of 3 - 19+ 3-dose series) 01/13/1984 05/06/2015 Colorectal Cancer Screening: Annual FOBT 2014 Colorectal Cancer Screening: Colonoscopy 2014 Colorectal Cancer Screening: Sigmoidoscopy 2014 Diabetes: Ophthalmology Exam 07/01/2019 Diabetes: Pedal Pulse Checked 07/01/2019 Diabetes: Sensory Foot Exam 07/01/2019 Diabetes: Visual Foot Exam 07/01/2019 Diabetes: Hemoglobin A1C 11/03/2024 025, 06/18/2024, 11/30/2023, Additional history exists Pneumococcal Vaccine: 50+ Years Completed 07/18/2023, 08/12/2021, 03/18/2015 Pneumococcal Vaccine: Peds ( 0 to 5 Years) and At-Risk Patients (6 to 49 Years) Discontinued 07/18/2023, 08/12/2021, 03/18/2015 Influenza Vaccine Completed 03/20/2024, , 02/27/2022, Additional history exists Procedures Procedure Name Priority Date/Time Associated Diagnosis Comments PTH, INTACT Routine 06/18/2024 4:11 PM EST VITAMIN D 25 HYDROXY Routine 06/18/2024 4:11 PM EST HEMOGLOBIN A1C Routine 06/18/2024 4:11 PM EST PROTEIN / CREATININE RATIO, URINE Routine 06/18/2024 4:11 PM EST IRON PANEL (FE, TIBC, TSAT) Routine 06/18/2024 4:11 PM EST CBC Routine 06/18/2024 4:11 PM EST RENAL FUNCTION PANEL Routine 06/18/2024 4:11 PM EST from Last 3 Months Results * Iron Panel (Fe, TIBC, TSAT) (06/18/2024 4:11 PM EST) TIBC 334 250 - 450 ug/dL [facility] UIBC 280 131 - 425 ug/dL [facility] Iron 54 27 - 159 ug/dL [facility] Iron Saturation (TSat) 16 15 - 55 % [facility] 06/18/2024 4:11 PM EST 06/18/2024 us Johan Giron MD LAB BLOOD ORDERABLES Final Resul t [facility] [address] [place] [address] * (ABNORMAL) Protein, Total, Random Urine w/Creatinine (Protein/Creat Ratio) (06/18/2024 4:11 PM EST) Creatinine, Ur 25.2 Not Estab. mg/dL [facility] Protein, Ur 48.3 Not Estab. mg/dL [facility] Urine Protein/Creati nine Ratio 1,917(H) 0 - 200 mg/g creat [facility] 06/18/2024 4:11 PM EST 06/18/2024 us Johan Giron MD LAB URINE ORDERABLES Final Resul t Performing Organization Address City/[facility]/ZIP Co de Phone Number [facility] [address] [place] [address] * (ABNORMAL) Vitamin D 25 Hydroxy (06/18/2024 4:11 PM EST) Vitamin D, 25-OH, Total 29.7(L) 30.0 - 100.0 ng/mL [facility] Comment: Vitamin D deficiency has been defined by the [place] of Medicine and an Endocrine Society practice guideline as a level of serum 25-OH vitamin D less than 20 ng/mL (1,2). The Endocrine Society went on to further define vitamin D insufficiency as a level between 21 and 29 ng/mL (2). 1. IOM ([place] of Medicine). 2010. Dietary reference ?? intakes for calcium and D. [place]: The ?? National [employer] Press. 2. Diana MF, Berta MACIAS, Duke CARSON, et al. ?? Evaluation, treatment, and prevention of vitamin D ?? deficiency: an Endocrine Society clinical practice ?? guideline. JCEM. 2010; 96(7):1911-30. 06/18/2024 4:11 PM EST 06/18/2024 Johan Giron MD LAB BLOOD ORDERABLES Final Resul t [facility] [address] [place] [address] * (ABNORMAL) CBC (06/18/2024 4:11 PM EST) WBC 9.6 3.4 - 10.8 x10E3/uL [facility] RBC 3.95 3.77 - 5.28 x10E6/uL [facility] Hemoglobin 12.5 11.1 - 15.9 g/dL [facility] Hematocrit 38.6 34.0 - 46.6 % [facility] MCV 98(H) 79 - 97 fL [facility] MCH 31.6 26.6 - 33.0 pg [facility] MCHC 32.4 31.5 - 35.7 g/dL [facility] RDW 13.9 11.7 - 15.4 % [facility] Platelets 432 150 - 450 x10E3/uL [facility] 06/18/2024 4:11 PM EST 06/18/2024 us Johan Grion MD LAB BLOOD ORDERABLES Final Resul t [facility] [address] [place] [address] * PTH, Intact (06/18/2024 4:11 PM EST) PTH 33 15 - 65 pg/mL [facility] 06/18/2024 4:11 PM EST 06/18/2024 us Johan Giron MD LAB BLOOD ORDERABLES Final Resul t Performing Organization Address [facility] Co de Phone Number [facility] [address] [place] [address] * (ABNORMAL) Hemoglobin A1c (06/18/2024 4:11 PM EST) Pathologist [facility] Hemoglobin A1C 7.7(H) 4.8 - 5.6 % [facility] Comment: ? Prediabetes: 5.7 - 6.4 ? Diabetes: >6.4 ? Glycemic control for adults with diabetes: <7.0 06/18/2024 4:11 PM EST 06/18/2024 us Johan Giron MD LAB BLOOD ORDERABLES Final Resul t Performing Organization Address [facility] de Phone Number [facility] [address] [place] [address] * (ABNORMAL) Renal Function Panel (06/18/2024 4:11 PM EST) Glucose 268(H) 70 - 99 mg/dL [facility] BUN 29(H) 6 - 24 mg/dL [facility] Creatinine 1.38(H) 0.57 - 1.00 mg/dL [facility] eGFR CKD-EPI CR 2020 44(L) >59 mL/min/1.7 3 [facility] BUN/Creatinine Ratio 21 9 - 23 [facility] Sodium 124(L) 134 - 144 mmol/L [facility] Potassium 4.9 3.5 - 5.2 mmol/L [facility] Chloride 86(L) 96 - 106 mmol/L [facility] Bicarbonate (CO2) 26 20 - 29 mmol/L [facility] Calcium 9.5 8.7 - 10.2 mg/dL [facility] Phosphorus 3.9 3.0 - 4.3 mg/dL [facility] Albumin 4.0 3.8 - 4.9 g/dL [facility] 06/18/2024 4:11 PM EST 06/18/2024 us Johan Giron MD LAB BLOOD ORDERABLES Final Resul t [facility] [address] [place] [address] from Last 3 Months Insurance Medicaid [place] Care Teams Magnetizer Relationship Specialty Start Date End Date Marium Agudelo DO PCP - General Family Medicine 02/04/20
--- OUTSIDE RECORDS SUMMARY | 2024-09-10 16:08 | XMS_ITS | Encounter Summary ---
Author Organization [facility] Address [address] [place] [address] Phone Care Team Providers Care Cloth Sponger Name Role Phone Marium Agudelo DO Primary Care Provider Unava ilable Encounter Details Date Type Department Care Team (Late Contact Info) Description 11/20/2023 Documentation Only [facility] [address] [place] [address] Ruth Bradshaw [address] [place] [phone] Social History Tobacco Use Types Packs/Day Years Used Date Smoking Tobacco: Every Day Cigarettes Alcohol Use Standard Drinks/Week Comments No 0 (1 standard drink = 0.6 oz pur e alcohol) Comments Unknown Sex and Gender Information Value Date Recorded Sex Assigned at Not on file Legal Sex Female 4:36 PM EST Gender Identity Not on file Sexual Orientation Not on file documented as of this encounter Plan of Treatment Upcoming Encounters Date Type Department Care Team (Late Contact Info) Description 09/23/2024 3:00 PM EDT Office Visit [facility] [address] [place] [address] Johan Giron MD [address] [place] [address] [place] [address] documented as of this encounter Visit Diagnoses Not on filedocumented in this encounter Care Teams Cloth Sponger Relationship Specialty Start Date End Date Marium Agudelo DO PCP - General Family Medicine 02/04/20 documented as of this encounter
--- OUTSIDE RECORDS SUMMARY | 2024-09-10 16:08 | XMS_ITS | Encounter Summary ---
Author Organization [facility] Address [address] [place] [address] Phone Care Team Providers Care Tower Equipment Installer Name Role Phone Marium Agudelo DO Primary Care Provider Unava ilable Encounter Details Date Type Department Care Team (Late Contact Info) Description 11/27/2023 Documentation Only [facility] [address] [place] [address] Ruth Bradshaw [address] [place] [phone] Social History Tobacco Use Types Packs/Day [...] Visit [facility] [address] [place] [address] Johan Giron MD [address] [place] [address] [place] [address] documented as of this encounter Visit Diagnoses Not on filedocumented in this encounter Care Teams Tower Equipment Installer Relationship Specialty Start Date End Date Marium Agudelo DO PCP - General Family Medicine 02/04/20 documented as of this encounter
--- OUTSIDE RECORDS SUMMARY | 2024-09-10 16:08 | XMS_ITS | Encounter Summary ---
Author Organization [employer] Address [address] [facility] [address] [place] [address] Care Team Providers Care Dairy Management Specialist Name Role Phone Marium Agudelo DO Primary Care Provider + [phone] Reason for Visit * Reason Onset Date Comments Hospital Follow-up 09/02/2024 Encounter Details Date Type Department Care Team ([facility] Contact Info) Description 09/02/[address] [facility] [address] [place], [place] [phone] Marium Agudelo DO [address] [place], [place] [phone] Hospital Follow-up Social History Tobacco Use Types Packs/Day Years [...] AM EDT documented as of this encounter Miscellaneous Notes * Telephone Encounter - Sebastian Tom - 09/02/2024 4:03 PM EDT Tc from pt requesting a HDF appt. Hospital: [facility] Date of admission: 08/26/24 Discharge date: 08/28/24 Diagnosed: low potasium and sodium documented in this encounter Plan of Treatment Upcoming Encounters Date Type Department Care Team (Late st Contact Info) Description 10/07/2024 1:00 PM EDT Clinical Support [facility] [address] [place] [address] Zonia Padilla RN 12/22/2024 2:30 PM EDT Office Visit [facility] [address] [place] [address] Amber Gary, OD [address] [place] [address] documented as of this encounter Visit Diagnoses Not on filedocumented in this encounter Additional Health Concerns Assessment Noted Time PHQ-9 Depression Total Score: 0 07/18/19 24 12:09 PM EDT documented as of this encounter Care Teams Dairy Management Specialist Relationship Specialty Start Date End Date Marium Agudelo DO [address] [place] [address] PCP - General Family Medicine 01/24/19 documented as of this encounter
--- OUTSIDE RECORDS SUMMARY | 2024-09-10 16:08 | XMS_ITS | Encounter Summary ---
Author Organization [employer] Address [address] [facility] [address] [place] [address] Care Team Providers Care Wellness Specialist Name Role Phone Marium Agudelo DO Primary Care Provider + [phone] Reason for Visit * Reason Comments Med Refill Encounter Details Date Type Department Care Team ([facility] st Contact Info) Description 08/30/2024 Refill [facility] [address] [place], [place] [phone] Marium Agudelo DO [address] [place] [address] Essential hypertension Social History Tobacco Use Types Packs/Day Years [...] Description 10/07/2024 1:00 PM EDT Clinical Support [facility] [address] [place], [place] [phone] Zonia Padilla RN 12/22/2024 2:30 PM EDT Office Visit [facility] [address] [place] [address] Abdirahman, Amber, OD [address] [place] [address] documented as of this encounter Visit Diagnoses Diagnosis Essential hypertension Unspecified essential hypertension documented in this encounter Additional Health Concerns Assessment Noted Time PHQ-9 Depression Total Score: 0 07/18/19 24 12:09 PM EDT documented as of this encounter Care Teams Wellness Specialist Relationship Specialty Start Date End Date Marium Agudelo DO [address] [place] [address] PCP - General Family Medicine 01/24/19 documented as of this encounter
--- OUTSIDE RECORDS SUMMARY | 2024-09-10 16:08 | XMS_ITS | Encounter Summary ---
Author Organization [employer] Address [address] [facility] [address] [place] [address] Care Team Providers Care Milling Planer Operator Name Role Phone Marium Agudelo DO Primary Care Provider + [phone] Encounter Details Date Type Department Care Team ([facility] st Contact Info) Description 09/10/2024 Patient Outreach [facility] [address] [place], [place] [phone] Marium Agudelo DO [address] [place] [address] Social History Tobacco Use Types Packs/Day Years [...] Description 10/07/2024 1:00 PM EDT Clinical Support [facility] [address] [place] [address] Zonia Padilla RN 12/22/2024 2:30 PM EDT Office Visit [facility] OPT[facility] [address] [place] [address] Abdirahman, Amber, OD [address] [place] [address] documented as of this encounter Visit Diagnoses Not on filedocumented in this encounter Additional Health Concerns Assessment Noted Time PHQ-9 Depression Total Score: 0 07/18/19 24 12:09 PM EDT documented as of this encounter Care Teams Milling Planer Operator Relationship Specialty Start Date End Date Marium Agudelo DO [address] [place] [address] PCP - General Family Medicine 01/24/19 documented as of this encounter
--- OUTSIDE RECORDS SUMMARY | 2024-09-10 16:08 | XMS_ITS | Encounter Summary ---
Author Organization [employer] Address [address] [facility] [address] [place] [address] Care Team Providers Care Proposal Lead Writer Name Role Phone Marium Agudelo DO Primary Care Provider + [phone] Iggy Bolanos RN Unavailable [phone] Reason for Visit * Reason Onset Date Comments Appointment Request 02/19/2024 Encounter Details Date Type Department Care Team ([facility] Contact Info) Description 02/19/2024 Telephone [facility] [address] [place], [place] [phone] Marium Agudelo DO [address] [place], [place] [phone] Appointment Request Social History Tobacco Use Types Packs/Day Years [...] Recorded Patient Health Questionnaire-2 Score 0 07/18/2023 Comments Unknown Sex and Gender Information Value Date Recorded Sex Assigned at Female 03/06/2022 10:17 AM EDT Legal Sex Female 10:17 AM EDT Gender Identity Female 03/06/2022 10:17 AM EDT Sexual Orientation Straight 03/06/2022 10 :17 AM EDT documented as of this encounter Miscellaneous Notes * Telephone Encounter - Monster García - 02/19/2024 8:25 AM EDT Tc from patient returning call to schedule HDF appt documented in this encounter Plan of Treatment Upcoming Encounters Date Type Department Care Team (Late st Contact Info) Description 10/07/2024 1:00 PM EDT Clinical Support [facility] [address] [place] [address] Zonia Padilla RN 12/22/2024 2:30 PM EDT Office Visit [facility] [address] [place] [address] Amber Gary, OD [address] [place] [address] documented as of this encounter Visit Diagnoses Not on filedocumented in this encounter Additional Health Concerns Assessment Noted Time PHQ-9 Depression Total Score: 0 07/18/19 24 12:09 PM EDT documented as of this encounter Care Teams Proposal Lead Writer Relationship Specialty Start Date End Date Marium Agudelo DO [address] [place] [address] PCP - General Family Medicine 01/24/19 Iggy Bolanos RN [address] [place] [address] [employer] 02/20/24 06/04/24 documented as of this encounter
--- OUTSIDE RECORDS SUMMARY | 2024-09-10 16:08 | XMS_ITS | Encounter Summary ---
Author Organization [employer] Address [address] [facility] 7[address] [place] [address] Care Team Providers Care Council Member Name Role Phone ShmuelMarium perla Primary Care Provider + [phone] Encounter Details Date Type Department Care Team ([facility] st Contact Info) Description 09/10/2024 2:15 PM EDT Office Visit [facility] [address] [place] [address] Latoya Odonnell MD [address] [place] [address] Type 1 diabetes mellitus with stage 3 chronic kidney disease, unspecified whether stage 3a or 3b CKD (CMS/HCC); Hyponatremia Social History Tobacco Use Types Packs/Day Years [...] AM EDT documented as of this encounter Last Filed Vital Signs Vital Sign Reading Time Taken Comments Blood Pressure 159/72 09/10/2024 2:32 PM EDT Pulse 68 09/10/2024 2:32 PM EDT Temperature 36.3 ??C (97.3 ??F) 09/10/2024 2:32 PM ED T Respiratory Rate 18 09/10/2024 2:32 PM EDT Oxygen Saturation - - Inhaled Oxygen Concentration - - Weight 65.6 kg (144 lb 9.6 oz) 09/10/2024 2:32 P M EDT Height 144.8 cm (4' 9 ) 09/10/2024 2:32 PM EDT Body Mass Index 31.29 09/10/2024 2:32 PM EDT documented in this encounter Plan of Treatment Upcoming Encounters Date Type Department Care Team (Late st Contact Info) Description 10/07/2024 1:00 PM EDT Clinical Support [facility] [address] [place] [id number] Zonia Padilla RN 12/22/2024 2:30 PM EDT Office Visit [facility] [address] [place] [address] Amber Gary, OD [address] [place] [address] Scheduled Orders Name Type Priority Associated Diagnoses Orde r Schedule Basic Metabolic Panel Lab Routine Hyponatremia Expected: 09/10/2024 (Approximate), Expires: 09/10/2025 documented as of this encounter Procedures Procedure Name Priority Date/Time Associated Diagnosis Comments POCT GLYCATED HEMOGLOBIN, TOTAL Routine 09/10/2024 2:33 PM EDT Type 1 diabetes mellitus with stage 3 chronic kidney disease, unspecified whether stage 3a or 3b CKD ([facility]/HCC) POCT GLUCOSE Routine 09/10/2024 2:33 PM EDT Type 1 diabetes mellitus with stage 3 chronic kidney disease, unspecified whether stage 3a or 3b CKD ([facility]/HCC) documented in this encounter Results * (ABNORMAL) POCT HGB A1C (09/10/2024 2:33 PM EDT) Hemoglobin A1C 7.7(A) 4.0 - 6.0 % QC Media Lot # [id number] Lot# Expiration Date Blood 09/10/2024 2:33 PM EDT Latoya Alberts MD POINT OF CARE TEST EN TER/EDIT ORDERABLES Final Result * (ABNORMAL) POCT Glucose (09/10/2024 2:33 PM EDT) Glucose Blood, POC 255(A) 60 - 200 mg/dL QC Media Lot # [id number] Lot# Expiration Date Blood Capillary blood specimen / Unknown 09/10/2024 2:33 PM EDT us Latoya Alberts MD POINT OF CARE TEST EN TER/EDIT ORDERABLES Final Result documented in this encounter Visit Diagnoses Diagnosis Type 1 diabetes mellitus with stage 3 chronic kidney disease, unspecified whether stage 3a or 3b CKD (CMS/HCC) Hyponatremia Hyposmolality and/or hyponatremia documented in this encounter Additional Health Concerns Assessment Noted Time PHQ-9 Depression Total Score: 0 07/18/19 24 12:09 PM EDT documented as of this encounter Care Teams Council Member Relationship Specialty Start Date End Date Marium Agudelo DO [address] [place] [id number] PCP - General Family Medicine 01/24/19 documented as of this encounter
--- OUTSIDE RECORDS SUMMARY | 2024-09-10 16:08 | XMS_ITS | Encounter Summary ---
Author Organization [employer] Address [address] [facility] [address] [place] [address] [address] Care [address] Design Draftsperson Name Role Phone Marium Agudelo DO Primary Care Provider + [phone] Iggy Bolanos RN Unavailable [phone] Reason for Visit * Reason Onset Date Comments returning call 05/29/2022 Encounter Details Date Type Department Care Team ([facility] st Contact Info) Description 05/29/2022 Telephone [facility] [address] [place] [address] Marium Agudelo DO [address] [place], [place] [phone] returning call Social History Tobacco Use Types Packs/Day Years Used Date Smoking Tobacco: Every Day Cigarettes Smokeless Tobacco: Never Alcohol Use Standard Drinks/Week Comments Never 0 (1 standard drink = 0.6 oz pur e alcohol) Comments Unknown Sex and Gender Information Value Date Recorded Sex Assigned at Female 03/06/2022 10:17 AM EDT Legal Sex Female 10:17 AM EDT Gender Identity Female 03/06/2022 10:17 AM EDT Sexual Orientation Straight 03/06/2022 10 :17 AM EDT COVID-19 Exposure Response Date Recorded In the last 10 days, have yo u been in contact with someone who was confirmed or suspected to have Coronavirus/COVID-19? No / Unsure 05/31/2022 2:17 PM EST documented as of this encounter Miscellaneous Notes * Telephone Encounter - Cecile Zarate - 05/29/2022 1:01 PM EST Tc from pt returning call . documented in this encounter Plan of Treatment Upcoming Encounters Date Type Department Care Team (Late st Contact Info) Description 10/07/2024 1:00 PM EDT Clinical Support [facility] [address] [place] [address] Zonia Padilla, DAKOTA 12/22/2024 2:30 PM EDT Office Visit [facility] [address] [place], [place] [phone] Amber Gary, OD [address] [place] [address] documented as of this encounter Visit Diagnoses Not on filedocumented in this encounter Care Teams Road Design Draftsperson Relationship Specialty Start Date End Date Marium Agudelo DO [address] [place] [address] PCP - General Family Medicine 01/24/19 Iggy Bolanos, DAK[place] [address] [place] [address] Patent ChemistField Crop Farm Worker 02/20/24 06/04/24 documented as of this encounter
--- OUTSIDE RECORDS SUMMARY | 2024-09-10 16:08 | XMS_ITS | Encounter Summary ---
Author Organization [employer] Address [address] [facility] [address] [place] [address] Care Team Providers Care Charging Board Operator Name Role Phone ShmuelMarium perla Primary Care Provider + [phone] Encounter Details Date Type Department Care Team ([facility] st Contact Info) Description 09/09/2024 Orders Only [facility] [address] [place], [place] [phone] Sunshine Chávez, PharmD [address] [place] [address] Social History Tobacco Use Types Packs/Day Years [...] AM EDT documented as of this encounter Progress Notes * Sunshine Chávez PharmD - 09/09/2024 12:01 PM EDT Kera from Dr. Giron's office returned call regarding which BB patient is to be on as they had metoprolol and carvedilol active with overlapping fills. Confirmed patient should be on metoprolol only and not carvedilol. [facility] contacted preferred pharmacy to discontinue carvedilol. documented in this encounter Plan of Treatment Upcoming Encounters Date Type Department Care Team (Late st Contact Info) Description 10/07/2024 1:00 PM EDT Clinical Support [facility] [address] [place] [address] Zonia Padilla RN 12/22/2024 2:30 PM EDT Office Visit [facility] [address] [place] [address] Amber Gary, OD [address] [place] [address] documented as of this encounter Visit Diagnoses Not on filedocumented in this encounter Additional Health Concerns Assessment Noted Time PHQ-9 Depression Total Score: 0 07/18/19 24 12:09 PM EDT documented as of this encounter Care Teams Charging Board Operator Relationship Specialty Start Date End Date Marium Agudelo DO [address] [place] [address] PCP - General Family Medicine 01/24/19 documented as of this encounter
--- OUTSIDE RECORDS SUMMARY | 2024-09-10 16:08 | XMS_ITS | Clinical Summary ---
Author Organization 175 [facility] Address [address] [place] [address] Phone Care Team Providers Care Label Machine Operator Name Role Phone Magnus Cyndee Miguel ESPINAL Primary Care Provider [phone] Allergies No known active allergies Medications blood sugar diagnostic (FreeStyle Lite Strips) test strip TEST 4 TIMES DAILY. 05/05/2016 Active INSULIN ADMIN SUPPLIES SUBQ Inject as directed. Active atorvastatin (LIPITOR) 20 mg tablet Take 1 tablet (20 mg total) by mouth 1 (one) time each day. Active baclofen (LIORESAL) 10 mg tablet Take 10 mg by mouth. 05/08/2014 Active carvediloL (COREG) 12.5 mg tablet Take 1 Tablet by mouth 2 times daily (with meals). Active docusate sodium (COLACE) 100 mg capsule Take 100 mg by mouth. 05/08/2014 Active enalapril (VASOTEC) 20 mg tablet 20 mg. 05/21/2014 Active fluticasone HFA (FLOVENT HFA) 110 mcg/actuation inhaler Inhale 2 Puffs into the lungs. 05/25/2014 Active gabapentin (NEURONTIN) 600 mg tablet 600 mg. 05/08/2014 Active insulin glargine (Lantus U-100 Insulin) 100 unit/mL injection Inject 60 Units into the skin. 05/21/2014 Active insulin lispro 100 unit/mL injection Inject 12 Units into the skin. 05/25/2014 Active insulin lispro 100 unit/mL injection 100 Units/mL. 06/12/2014 Active omeprazole (PriLOSEC) [address] capsule Take 20 mg by mouth. 05/08/2014 Active oxyCODONE-acetam inophen (PERCOCET) 10-325 mg per tablet Take 1 tablet by mouth. 02/26/2014 Active polyethylene glycol (MIRALAX) 17 gram packet MIX 1 PACKET IN 8 OUNCES OF LIQUID AND DRINK ONCE DAILY. 07/04/2016 Active simvastatin (ZOCOR) 20 mg tablet Take 20 mg by mouth. 05/08/2014 Active zolpidem (AMBIEN) 10 mg tablet Take 10 mg by mouth. 05/05/2014 Active Active Problems Problem Noted Date Diagnosed Date Lateral epicondylitis, left elbow 07/09/2023 Numbness and tingling 03/27/2023 Chronic low back pain with bilateral sciatica Overview (05/26/2024): Last Assessment & Plan: I reviewed this in detail with Ms. Arreola and though she describes symptoms of claudication, the findings on her MRI are mild and unlikely to improve with surgery. There may be an element of vascular claudication as well. She has an appointment to start physical therapy next week and I encouraged her in that endeavor as there is an estimated improvement in symptoms of about 70% with PT. She is welcome to contact us if things do not improve and we will try to come up with other options. 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 Newell, [address] [place] [address]. - numerous hand surgeries: carpal tunnel releases, multiple trigger finger releases, infection and tendon reconstruction. Chronic kidney disease 05/22/2014 DM type 1 (diabetes mellitus , type 1) ([facility] V24, [facility] V28) 05/22/2014 Female pelvic pain 05/22/2014 Overview (05/26/2024): [facility]: Normal sonographic appearance of the uterus and right ovary. The left ovary was not visualized. Hypertension 05/22/2014 Encounters Date Type Department Care Team Description 07/25/2024 5:30 PM EDT - 07/25/2024 11:59 PM EDT Hospital Encounter [facility] MRI [address] [place] [id number] Discharge Disposition: Home or Self Care 06/30/2024 1:15 PM EST Consult Orthopedic Surgery - [place] [address] [facility] [address] [place] [address] Ish Lovell, DPM Plantar fascial fibromatosis (Primary Dx); Pain in right foot; Pain in left foot; Diabetic mononeuropathy simplex ([facility] V24, [facility] V28); Metatarsalgia of both feet from Last 3 Months Immunizations Name Administration Dates Next Due Moderna SARS-CoV-2 COVID-19, mRNA, LNP-S, preservative free 08/26/2020,07/23/2020 Pfizer SARS-CoV-2 COVID-19, mRNA, LNP-S, preservative free 08/03/2021 Medical History Medical History Date Comments HTN (hypertension) DX:HTN (hyper tension) DM (diabetes mellitus) ([facility] V[facility], [facility] V28) DX:DM (diabetes mellitus) ([facility]) Esophageal reflux DX:Esophageal reflux Anxiety state DX:Anxiety state Hyperlipidemia DX:Hyperlipidemi a Diabetic neuropathy ([facility] V[facility], [facility] [place]28) DX:Diabetic neuropathy ([facility]) Depressive disorder DX:Depressiv e disorder Social History Tobacco Use Types Packs/Day Years Used Date Smoking Tobacco: Every Day Cigarettes Smokeless Tobacco: Never Alcohol Use Standard Drinks/Week Comments No 0 (1 standard drink = 0.6 oz pur e alcohol) Comments Unknown Sex and Gender Information Value Date Recorded Sex Assigned at Not on file Legal Sex Female 4:55 AM EST Gender Identity Not on file Sexual Orientation Not on file Obstetrics History Last Filed Vital Signs Vital Sign Reading Time Taken Comments Blood Pressure - - Pulse - - Temperature - - Respiratory Rate - - Oxygen Saturation - - Inhaled Oxygen Concentration - - Weight 61.7 kg (136 lb) 06/30/2024 1:19 PM EST Height 144.8 cm (4' 9 ) 07/06/2023 1:48 PM EST Body Mass Index 29.43 07/06/2023 1:48 PM EST Plan of Treatment Upcoming Encounters Date Type Department Care Team (Late st Contact Info) Description 10/07/2024 2:30 PM EDT Office Visit Orthopedic Surgery [facility] 175 [facility] [address] [place] [phone] Mary Newell MD 175 [facility] [address] [place] [phone] 10/29/2024 3:00 PM EDT Office Visit Orthopedic [facility] [address] [facility] [address] [place] [phone] Ish Lovell DPM [address] [address] Health Maintenance Due Date Last Done Comments Diabetes: Annual Foot Exam 1975 Diabetes: Annual Retina Eye Exam 1975 Cervical Cancer Screening: Pap Smear 1986 Zoster Vaccines (1 of 2) 2015 Hepatitis B Vaccines (2 of 3 - 19+ 3-dose series) 06/03/2015 05/06/2015 Colorectal Cancer Screening: Colonoscopy 04/16/2022 Social Influencers of Health Screening 04/16/2022 Diabetes: Annual Urine Albumin-Creatinine Ratio (uACR) 04/21/2022 Breast Cancer Screening 09/02/2023 09/01/2021 Diabetes: Annual GFR (Glomerular Filtration Rate) 01/31/2024 01/30/2023 Hypertension/CHF/CAD Annual BMP Blood Test 01/31/2024 01/30/2023 Depression Screening 07/17/2024 07/18/2023 COVID-19 Vaccine (7 - Mixed Product risk season) 2024 03/20/2024, 07/18/2023, 03/23/2022, Additional history exists Diabetes: Blood Sugar Control Test (HGBA1C) 12/16/2024 06/18/2024, 06/18/2024, 11/30/2023, Additional history exists Cholesterol Screening (Lipid Panel) 11/22/2028 11/23/2023, 04/10/2022 DTaP,Tdap,and Td Vaccines (3 - Td or Tdap) 08/13/2031 08/12/2021, 03/04/2015 RSV Immunization Adult Patients (1 - 1-dose 75+ series) 01/13/2040 HIV Screening Completed 07/18/2023, 04/10/2022 Hepatitis C Screening Completed 07/18/2023, 022 Pneumococcal Vaccine: 50+ Years Completed 07/18/2023, 08/12/2021, 03/18/2015 Pneumococcal Vaccine: Pediatrics (0 to 5 Years) and At-Risk Patients (6 to 64 Years) Completed 07/18/2023, 08/12/2021, 03/18/2015 Influenza Vaccine Completed 03/20/2024, , 02/27/2022, Additional history exists HIB Vaccines Aged Out No longer eligi ble based on patient's age to complete this topic HPV Vaccines Aged Out No longer eligi ble based on patient's age to complete this topic Hepatitis A Vaccines Aged Out No long er eligible based on patient's age to complete this topic IPV Vaccines Aged Out No longer eligi ble based on patient's age to complete this topic MMR Vaccines Aged Out No longer eligi ble based on patient's age to complete this topic Meningococcal ACWY Vaccine Aged Out N o longer eligible based on patient's age to complete this topic Meningococcal B Vaccine Aged Out No l onger eligible based on patient's age to complete this topic RSV Immunization Patients Under 20 months Aged Out No longer eligible based on patient's age to complete this topic Varicella Vaccines Aged Out No longer eligible based on patient's age to complete this topic Procedures Procedure Name Priority Date/Time Associated Diagnosis Comments MR FOOT WO CONTRAST RIGHT Routine 07/25/2024 6:10 PM EDT Plantar fascial fibromatosis Diabetic mononeuropathy simplex (CMS/HCC V24, CMS/HCC V28) Metatarsalgia of both feet ANNUAL BMP BLOOD TEST Routine 01/30/2023 HEPATITIS C SCREENING Routine 04/10/2022 HIV SCREENING Routine 04/10/2022 LIPID PANEL Routine 04/10/2022 GIANFRANCO SCREENING DIGITAL Routine 09/01/2021 4:10 PM EDT Encounter for screening mammogram for malignant neoplasm of breast from Last 3 Months or Most Recently Relevant to Health Maintenance Results * MR Foot wo Contrast Right (07/25/2024 6:10 PM EDT) Anatomical Region Laterality Modality Lower Extremities, Foot Right Magnetic Resonance 07/28/2024 1:00 PM EDT Impressions 07/28/2024 1:04 PM EDT Acute nondisplaced fracture of the cuboid with surrounding edema/inflammation. 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 -------- FINAL REPORT -------- Dictated By: ALEXI FORD Dictated Date: 07/28/2024 13:00 ET Assigned Physician: ALEXI FORD Reviewed and Electronically Signed By: ALEXI FORD Signed Date: 07/28/2024 13:04 ET Workstation ID: [id number] Transcribed By: Self Edit Transcribed Date: 07/28/2024 13:00 ET Narrative 07/28/2024 1:04 PM EDT PROCEDURE: Right foot MRI INDICATION: Pain TECHNIQUE: Multiplanar, multisequence MRI of the right foot Without contrast. COMPARISON: ??No priors available. FINDINGS: Nondisplaced fracture of the cuboid with marrow edema throughout the cuboid. ??No other fracture or suspicious marrow replacing lesion. Thickening and high signal of the plantar fascia at the calcaneal attachment site with surrounding edema/inflammation in the plantar aspect of the calcaneus and adjacent soft tissues. Articular cartilage is preserved. ??No joint effusions. Lisfranc ligament complex and intermetatarsal ligaments are intact. ??Ankle ligaments are intact. Achilles tendon is intact. Peroneal tendons, posterior tibial tendon, flexor tendons, and extensor tendons are intact. Mild chronic atrophy at the abductor digit minimi muscle. ??No mass or fluid collection. Procedure Note Alexi Ford MD - 07/28/2024 PROCEDURE: Right foot MRI INDICATION: Pain TECHNIQUE: Multiplanar, multisequence MRI of the right foot Withoutcontrast. COMPARISON: No priors available. FINDINGS: Nondisplaced fracture of the cuboid with marrow edema throughout thecuboid. No other fracture or suspicious marrow replacing lesion. Thickening and high signal of the plantar fascia at the calcanealattachment site with surrounding edema/inflammation in the plantar aspectof the calcaneus and adjacent soft tissues. Articular cartilage is preserved. No joint effusions. Lisfranc ligament complex and intermetatarsal ligaments are intact. Ankleligaments are intact. Achilles tendon is intact. Peroneal tendons, posterior tibial tendon, flexor tendons, and extensortendons are intact. Mild chronic atrophy at the abductor digit minimi muscle. No mass orfluid collection. IMPRESSION: Acute nondisplaced fracture of the cuboid with surroundingedema/inflammation. 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 -------- FINAL REPORT -------- Dictated By: ALEXI FORD Dictated Date: 07/28/2024 13:00 ET Assigned Physician: ALEXI FORD Reviewed and Electronically Signed By: ALEXI FORD Signed Date: 07/28/2024 13:04 ET Workstation ID: [id number] Transcribed By: Self Edit Transcribed Date: 07/28/2024 13:00 ET Ish Lovell DPM IM MRI PROCEDURES Final Result * Annual BMP Blood Test (01/30/2023) [facility] Annual BMP Blood Test abstracted Historical Provider HEALTH MAINTENANCE Final Result * HIV Screening (04/10/2022) [facility] HIV Screening abstracted Historical Provider HEALTH MAINTENANCE Final Result * Hepatitis C Screening (04/10/2022) [facility] Hepatitis C Screening abstracted Historical Provider HEALTH MAINTENANCE Final Result * Lipid panel (04/10/2022) LDL/HDL Ratio 0 0 - 0 Comment:no interpretation Triglycerides 0 0 - 0 mg/dL Comment:no interpretation Cholesterol 0 0 - 0 mg/dL Comment:no interpretation HDL 0 0 - 0 mg/dL Comment:no interpretation LDL Cholesterol 0 0 - 0 mg/dL Comment:no interpretation Blood Venous blood specimen / Unknown us Historical Provider LAB BLOOD ORDERABLES Sarah l Result * GIANFRANCO SCREENING DIGITAL (09/01/2021 4:10 PM EDT) Anatomical Region Laterality Modality Mammography 09/01/2021 2:23 PM EDT Narrative 09/01/2021 4:10 PM EDT [facility] Diagnostic Imaging Department [address] [place] [address] Patient: ??MICHAEL ARREOLA ?/Age/Sex: 1965 - 56 - F Unit#: ??[id number] ? Location/Status: ??[facility] CLI ? Mnemonic/Ordering Site: ??[facility] Ordering Physician: ??CYNDEE AGUDELO DO Gianfranco Screening Digital - 09/01/21 - 1508 INDICATION: SCREENING COMPARISON: [facility] mammograms dating back to 04/05/2010 TECHNIQUE: CC and MLO views of the breasts were obtained, using full field digital mammography with 3D tomosynthesis views in the MLO projection. Computer aided detection with the Clever Sense.2-H was employed. FINDINGS: The breasts contain heterogeneously dense tissues, which may lower sensitivity of mammography in this patient. No suspicious masses, suspicious microcalcifications, or areas of architectural distortion are identified. ??There are no secondary signs of breast malignancy. Benign-appearing breast calcifications are present bilaterally. IMPRESSION: ??No specific mammographic evidence of breast malignancy. Lack of an imaging correlate should not deter or delay biopsy of a clinically significant palpable finding. BI-RADS ??- Category 2 - Benign finding 3342F, 7025F Annual screening mammography is recommended. Patient entered into a reminder system with a target date for the next mammogram. (G0202 / [id number]) , ??[id number] Dictating Physician: ??MAIA OMALLEY MD Electronically Signed by: ??MAIA OMALLEY MD Dic Date/Time: ??09/01/21 1608 Sign date/Time: ??09/01/21 1610 Procedure Note Maia Omalley MD - 04/26/2022 [facility] Diagnostic Imaging Department [address] [place] [address] Patient: MICHAEL ARREOLAO.B./Age/Sex: 1965 - 56 - F Unit#: [id number] Location/Status: [facility] Mnemonic/Ordering Site: [facility] Ordering Physician: CYNDEE AGUDELO DO Gianfranco Screening Digital - 09/01/21 - 1508 INDICATION: SCREENING COMPARISON: [facility] mammograms dating back to 04/05/2010 TECHNIQUE: CC and MLO views of the breasts were obtained, using full field digital mammography with 3D tomosynthesis views in the MLO projection. Computer aided detection with the Nubefy 7.2-H was employed. FINDINGS: The breasts contain heterogeneously dense tissues, which may lowersensitivity of mammography in this patient. No suspicious masses, suspicious microcalcifications, or areas ofarchitectural distortion are identified. There are no secondary signs of breastmalignancy. Benign-appearing breast calcifications are present bilaterally. IMPRESSION: No specific mammographic evidence of breast malignancy. Lack of an imaging correlate should not deter or delay biopsy of aclinically significant palpable finding. BI-RADS - Category 2 - Benign finding 3342F, 7025F Annual screening mammography is recommended. Patient entered into a reminder system with a target date for the next mammogram. [id number] / [id number]) , [id number] Dictating Physician: MAIA OMALLEY MD Electronically Signed by: MAIA OMALLEY MD Dic Date/Time: 09/01/21 1608 Sign date/Time: 09/01/21 1610 Cyndee Agudelo DO IMG BI PROCEDURES Final Re sult from Last 3 Months or Most Recently Relevant to Health Maintenance Insurance [place] Care Teams Label Machine Operator Relationship Specialty Start Date End Date Cyndee Agudelo DO [address] [place], [place] PCP - General Family Medicine 05/08/24
--- OUTSIDE RECORDS SUMMARY | 2024-09-10 16:08 | XMS_ITS | Encounter Summary ---
Author Organization [employer] Address [address] [facility] 7t [place] [address] Care Team Providers Care Supervisor Fabrication And Assembly Name Role Phone Magnus Marium Primary Care Provider + [phone] Encounter Details Date Type Department Care Team ([facility] st Contact Info) Description 09/09/2024 Telephone [facility] MEDICINE [address] [place] [address] Latoya Odonnell MD [address] [place] [address] Social History Tobacco Use Types Packs/Day Years [...] encounter Miscellaneous Notes * Telephone Encounter - Jessica Quiroz [place] - 09/09/2024 3:04 PM EDT Chart Prep Labs: done [facility] Images: not applicable Referrals: not applicable Vaccines due: Hep B and Zoster Screenings: colonoscopy, mammogram, pap smear, and foot exam Overdue care gaps: A1C, Glucose, PHQ-9, BERNADETTE-7, Oral Health Screening, SBIRT, Disability Screening documented in this encounter Plan of Treatment Upcoming Encounters Date Type Department Care Team (Late st Contact Info) Description 10/07/2024 1:00 PM EDT Clinical Support [facility] MEDICINE [address] [place] [address] Zonia Padilla RN 12/22/2024 2:30 PM EDT Office Visit [facility] OPTOMETRY [address] [place] [address] Amber Gary, OD [address] [place] [address] documented as of this encounter Visit Diagnoses Not on filedocumented in this encounter Additional Health Concerns Assessment Noted Time PHQ-9 Depression Total Score: 0 07/18/19 24 12:09 PM EDT documented as of this encounter Care Teams Supervisor Fabrication And Assembly Relationship Specialty Start Date End Date Marium Agudelo DO [address] [place] [address] PCP - General Family Medicine 01/24/19 documented as of this encounter
--- OUTSIDE RECORDS SUMMARY | 2024-09-10 16:08 | XMS_ITS | Encounter Summary ---
Author Organization [facility] Address [address] [place] [address] Phone Care Team Providers Care Hydrographer Name Role Phone Marium Agudelo DO Primary Care Provider Unava ilable Encounter Details Date Type Department Care Team (Late Contact Info) Description 11/03/2022 Documentation Only [facility] [address] [place] [address] Johan Giron MD [address] [place] [address] [place] [address] Social History Tobacco Use Types Packs/Day Years [...] Visit [facility] [address] [place] [address] Johan Giron MD [address] [facility] [place] [address] documented as of this encounter Visit Diagnoses Not on filedocumented in this encounter Care Teams Hydrographer Relationship Specialty Start Date End Date Marium Agudelo DO PCP - General Family Medicine 02/04/20 documented as of this encounter
--- OUTSIDE RECORDS SUMMARY | 2024-09-10 16:08 | XMS_ITS ---
Author Organization [employer] Address [address] [facility] 7t [place] [address] Care Team Providers Care Ticket Speculator Name Role Phone Marium Agudelo DO Primary Care Provider [phone] CM Complex Status:Outreach In Progress (Enrolling) Start date:08/27/2024 Enrollment reason:ADT Feed Overview ED- [place] [facility] [place]. Case Team Name Relationship Phone Iggy Bolanos RN Registered Nurse(Responsible S taff) [phone] Continued Care and Services Coordination
--- OUTSIDE RECORDS SUMMARY | 2024-09-10 16:09 | XMS_ITS | Encounter Summary ---
Author Organization [employer] Address [address] [facility] [address] [place] [address] Care Team Providers Care Winch Runner Name Role Phone Marium Agudelo DO Primary Care Provider + [phone] Iggy Bolanos RN Unavailable [phone] Reason for Visit * Reason Comments Med Refill Encounter Details Date Type Department Care Team ([facility] st Contact Info) Description 03/01/2023 Refill [facility] MEDICINE [address] [place], [place] [phone] Marium Agudelo DO [address] [place], [place] [phone] Other chronic pain Social History Tobacco Use Types Packs/Day Years Used Date Smoking Tobacco: Every Day Cigarettes Passive Smoke Exposure: Current Smokeless Tobacco: Never Alcohol Use Standard Drinks/Week Comments Never 0 (1 standard drink = 0.6 oz pur e alcohol) Depression Answer Date Recorded Patient Health Questionnaire-9 Score 0 07/05/2022 Housing Stability Answer Date Recorded What is your housing situation today? I have montserrat vences 02/19/[address] you li ve. Do you have problems with any of the following? None of the above 02/19/2023 Food Insecurity Answer Date Recorded Within the past 12 months, y ou worried that your food would run out before you got money to buy more: Never True 02/19/2023 Within the past 12 months,th e food you bought just didn't last and you didn't have enough money to get more: Never True Transportation Answer Date Recorded In the past 12 months, has l ack of transportation kept you from medical appts, meetings, work or from getting things needed for daily living? No 02/19/2023 Utilities Answer Date Recorded In the past 12 months, has t he electric, gas, oil or water company threatened to shut off services in your home? No 02/19/2023 Depression Answer Date Recorded Patient Health Questionnaire-2 Score 0 07/05/2022 Comments Unknown Sex and Gender Information Value [...] Description 10/07/2024 1:00 PM EDT Clinical Support [facility] MEDICINE [address] [place] [address] Zonia Padilla RN 12/22/2024 2:30 PM EDT Office Visit [facility] OPTOMETRY [address] [place] [address] Abdirahman, Amber, OD [address] [place] [address] documented as of this encounter Visit Diagnoses Diagnosis Other chronic pain documented in this encounter Additional Health Concerns Assessment Noted Time PHQ-9 Depression Total Score: 0 07/06/19 23 11:24 AM EST documented as of this encounter Care Teams Winch Runner Relationship Specialty Start Date End Date Marium Agudelo DO [address] [place] [address] PCP - General Family Medicine 01/24/19 Iggy Bolanos RN [address] [place] [address] Label DrierCottage Supervisor 02/20/24 06/04/24 documented as of this encounter
--- OUTSIDE RECORDS SUMMARY | 2024-09-10 16:09 | XMS_ITS | Encounter Summary ---
Author Organization [facility] Address [address] [place] [address] Phone Care Team Providers Care Piston Maker Name Role Phone Marium Agudelo DO Primary Care Provider Unava ilable Encounter Details Date Type Department Care Team (Late Contact Info) Description 06/03/2024 Documentation Only [facility] [address] [place] [address] Kera Pascal [address] [place] [phone] Social History Tobacco Use Types Packs/Day [...] Visit [facility] [address] [place] [address] Johan Giron MD [address] [place] [address] [place] [address] documented as of this encounter Visit Diagnoses Not on filedocumented in this encounter Care Teams Piston Maker Relationship Specialty Start Date End Date Marium Agudelo DO PCP - General Family Medicine 02/04/20 documented as of this encounter
--- OUTSIDE RECORDS SUMMARY | 2024-09-10 16:09 | XMS_ITS | Encounter Summary ---
Author Organization [employer] Address [address] [facility] 7t [place] [address] Care Team Providers Care Security System Installer Name Role Phone Marium Agudelo DO Primary Care Provider + [phone] Iggy Bolanos RN Unavailable [phone] Reason for Visit * Reason Comments Med Refill Encounter Details Date Type Department Care Team ([facility] st Contact Info) Description 11/30/2022 Refill [facility] [address] [place], [place] [phone] Marium Agudelo DO [address] [place] [address] Chronic GERD Social History Tobacco Use Types Packs/Day Years Used Date Smoking Tobacco: Every Day Cigarettes Passive Smoke Exposure: Current Smokeless Tobacco: Never Alcohol Use Standard Drinks/Week Comments Never 0 (1 standard drink = 0.6 oz pur e alcohol) Depression Answer Date Recorded Patient Health Questionnaire-9 Score 0 07/05/2022 Depression Answer Date Recorded Patient Health Questionnaire-2 [...] suspected to have Coronavirus/COVID-19? No / Unsure 10/31/2022 10:12 AM EDT documented as of this encounter Plan of Treatment Upcoming Encounters Date Type Department Care Team (Late st Contact Info) Description 10/07/2024 1:00 PM EDT Clinical Support [facility] [address] [place] [address] Zonia Padilla, DAKOTA 12/22/2024 2:30 PM EDT Office Visit [facility] [address] [place] [address] Amber Gary, OD [address] [place] [address] documented as of this encounter Visit Diagnoses Diagnosis Chronic GERD documented in this encounter Additional Health Concerns Assessment Noted Time PHQ-9 Depression Total Score: 0 07/06/19 23 11:24 AM EST documented as of this encounter Care Teams Security System Installer Relationship Specialty Start Date End Date Marium Agudelo DO [address] [place] [address] PCP - General Family Medicine 01/24/19 Iggy Bolanos RN [address] [place] [address] Grain WeigherJack Spinner 02/20/24 06/04/24 documented as of this encounter
--- OUTSIDE RECORDS SUMMARY | 2024-09-10 16:09 | XMS_ITS | Encounter Summary ---
Author Organization [employer] Address [address] [facility] 7t [place] [address] Care Team Providers Care Government Guard Name Role Phone Marium Agudelo DO Primary Care Provider + [phone] Iggy Bolanos RN Unavailable [phone] Reason for Visit * Reason Comments Med Refill Encounter Details Date Type Department Care Team ([facility] Contact Info) Description 12/03/2022 Refill [facility] [address] [place] [phone] Marium Agudelo DO [address] [place] [phone] Chronic GERD Social History Tobacco Use Types [...] Upcoming Encounters Date Type Department Care Team ([facility] Contact Info) Description 10/07/2024 1:00 PM EDT Clinical Support [facility] [address] [place] [address] Zonia Padilla RN 12/22/2024 2:30 PM EDT Office Visit [facility] [address] [place], [place] [phone] Amber Gary, OD [address] [place] [address] documented as of this encounter Visit Diagnoses Diagnosis Chronic GERD documented in this encounter Additional Health Concerns Assessment Noted Time PHQ-9 Depression Total Score: 0 07/06/19 23 11:24 AM EST documented as of this encounter Care Teams Government Guard Relationship Specialty Start Date End Date Marium Agudelo DO [address] [place], [place] [phone] PCP - General Family Medicine 01/24/19 Iggy Bolanos RN [address] [place] [address] Diaper Machine TenderCoo 02/20/24 06/04/24 documented as of this encounter
--- OUTSIDE RECORDS SUMMARY | 2024-09-10 16:09 | XMS_ITS | Encounter Summary ---
Author Organization [employer] Address [address] [facility] 7t [place] [address] Care Team Providers Care Medical Doctor Md/Medical Director Name Role Phone ShmuelMarium perla Primary Care Provider + [phone] Iggy Bolanos RN Unavailable [phone] Reason for Visit * Reason Comments Med Refill Encounter Details Date Type Department Care Team ([facility] Contact Info) Description 01/23/2023 Refill [facility] [address] [place] [address] Latoya Odonnell MD [address] [place] [address] Chronic GERD Social History Tobacco Use Types [...] Upcoming Encounters Date Type Department Care Team ([facility] Contact Info) Description 10/07/2024 1:00 PM EDT Clinical Support [facility] [address] [place] [address] Zonia Padilla, DAKOTA 12/22/2024 2:30 PM EDT Office Visit [facility] [address] [place], [place] [phone] Amber Gary, OD [address] [place] [address] documented as of this encounter Visit Diagnoses Diagnosis Chronic GERD documented in this encounter Additional Health Concerns Assessment Noted Time PHQ-9 Depression Total Score: 0 07/06/19 23 11:24 AM EST documented as of this encounter Care Teams Medical Doctor Md/Medical Director Relationship Specialty Start Date End Date Marium Agudelo DO [address] [place], [place] [phone] PCP - General Family Medicine 01/24/19 Iggy Bolanos, DAKOTA [address] [place] [address] Tug Boat CaptainProfessor Of Forest Planning 02/20/24 06/04/24 documented as of this encounter
--- OUTSIDE RECORDS SUMMARY | 2024-09-10 16:09 | XMS_ITS | Encounter Summary ---
Author Organization [employer] Address 75 [facility] 7t [place] [address] Care Team Providers Care Under Sheriff Name Role Phone Marium Agudelo DO Primary Care Provider + [phone] Iggy Bolanos RN Unavailable [phone] Encounter Details Date Type Department Care Team ([facility] Contact Info) Description 07/04/[address] [facility] [address] [place], [place] [phone] Marium Agudelo DO [address] [place] [address] Social History Tobacco Use Types Packs/Day Years [...] suspected to have Coronavirus/COVID-19? No / Unsure 07/05/2022 10:56 AM EST documented as of this encounter Plan of Treatment Upcoming Encounters Date Type Department Care Team (Late Contact Info) Description 10/07/2024 1:00 PM EDT Clinical [address] [facility] [address] [place] [address] Zonia Padilla RN 12/22/2024 2:30 PM EDT Office Visit [facility] [address] [place] [address] Abdirahman, Amber, OD [address] [place] [address] documented as of this encounter Visit Diagnoses Not on filedocumented in this encounter Additional Health Concerns Assessment Noted Time PHQ-9 Depression Total Score: 0 06/14/19 23 12:01 PM EST documented as of this encounter Care Teams Under Sheriff Relationship Specialty Start Date End Date Marium Agudelo DO [address] [place] [address] PCP - General Family Medicine 01/24/19 Iggy Bolanos RN [address] [place] [address] Heel Seat TrimmerSports Marketing Internship 02/20/24 06/04/24 documented as of this encounter
--- OUTSIDE RECORDS SUMMARY | 2024-09-10 16:09 | XMS_ITS | Encounter Summary ---
Author Organization [employer] Address 75 [facility] 7t [place] [address] Care Team Providers Care Video Operator Name Role Phone Marium Agudelo DO Primary Care Provider [phone] Iggy Bolanos RN Unavailable [phone] Encounter Details Date Type Department Care Team ([facility] Contact Info) Description 09/20/2022 Abstract [facility] [address] [place] [address] Marium Agudelo DO [address] [place] [phone] Social History Tobacco Use Types Packs/Day Years [...] 10/07/2024 1:00 PM EDT Clinical Support [facility] [address] [place] [address] Zonia Padilla RN 12/22/2024 2:30 PM EDT Office Visit [facility] [address] [place] [address] Amber Gary, OD [address] [place] [address] documented as of this encounter Procedures Procedure Name Priority Date/Time Associated Diagnosis Comments EXTERNAL BREAST BIOPSY Routine 09/15/2022 9:46 AM EDT documented in this encounter Results * External Breast Biopsy (09/15/2022 9:46 AM EDT) Anatomical Region Laterality Modality Breast N/A Mammography Narrative 09/15/2022 9:46 AM EDT Benign biopsy results recommended annual screening us Historical Provider MD BOWIE BI PROCEDURES Final R esult documented in this encounter Visit Diagnoses Not on filedocumented in this encounter Additional Health Concerns Assessment Noted Time PHQ-9 Depression Total Score: 0 07/06/19 23 11:24 AM EST documented as of this encounter Care Teams Video Operator Relationship Specialty Start Date End Date Marium Agudelo DO [address] [place] [address] PCP - General Family Medicine 01/24/19 Iggy Bolanos RN [address] [place] [address] Technical Project ManagerInsulation Sprayer 02/20/24 06/04/24 documented as of this encounter
--- OUTSIDE RECORDS SUMMARY | 2024-09-10 16:09 | XMS_ITS | Encounter Summary ---
Author Organization [facility] Address [address] [place] [address] Phone Care Team Providers Care Tier Over Name Role Phone Marium Agudelo DO Primary Care Provider Unava ilable Encounter Details Date Type Department Care Team ([facility] Contact Info) Description 09/05/2024 Office Communication [facility] [address] [place] [address] Kera Pascal [address] [place] [phone] Social History Tobacco Use Types Packs/Day Years [...] on file documented as of this encounter Miscellaneous Notes * Telephone Encounter - Kera Pascal - 09/09/2024 1:07 PM EDT Spoke with Neha and made her aware of Dr. Jerez's response. documented in this encounter Plan of Treatment Upcoming Encounters Date Type Department Care Team ([facility] Contact Info) Description 09/23/2024 3:00 PM EDT Office Visit [facility] [address] [place] [address] Johan Giron MD [address] [place] [address] documented as of this encounter Visit Diagnoses Not on filedocumented in this encounter Care Teams Tier Over Relationship Specialty Start Date End Date Marium Agudelo DO PCP - General Family Medicine 02/04/20 documented as of this encounter
--- OUTSIDE RECORDS SUMMARY | 2024-09-10 16:09 | XMS_ITS | Encounter Summary ---
Author Organization [employer] Address 75 [facility] 7t [place] [address] Care Team Providers Care Airplane Tester Name Role Phone Marium Agudelo DO Primary Care Provider + [phone] Iggy Bolanos RN Unavailable [phone] Reason for Visit * Reason Onset Date Comments Med Refill 09/11/2022 Encounter Details Date Type Department Care Team ([facility] st Contact Info) Description 09/11/2022 Telephone [facility] [address] [place], [place] [phone] Marium Agudelo DO [address] [place], [place] [phone] Med Refill Social History Tobacco Use Types Packs/Day Years [...] encounter Miscellaneous Notes * Telephone Encounter - Arielle Hoang - 09/11/2022 10:05 AM EDT Tc from patient requesting a med refill on medication oxycodone 5 mg. Please send to [facility]. PCP Dr. Agudelo documented in this encounter Plan of Treatment Upcoming Encounters Date Type Department Care Team (Late st Contact Info) Description 10/07/2024 1:00 PM EDT Clinical Support [facility] [address] [place] [address] Zonia Padilla RN 12/22/2024 2:30 PM EDT Office Visit [facility] [address] [place] [address] Abdirahman, Amber, OD [address] [place] [address] documented as of this encounter Visit Diagnoses Not on filedocumented in this encounter Additional Health Concerns Assessment Noted Time PHQ-9 Depression Total Score: 0 07/06/19 23 11:24 AM EST documented as of this encounter Care Teams Airplane Tester Relationship Specialty Start Date End Date Marium Agudelo DO [address] [place] [address] PCP - General Family Medicine 01/24/19 Iggy Bolanos, DAKOTA [address] [place] [address] Blanchard Grinder OperatorLandscape Architect 02/20/24 06/04/24 documented as of this encounter
--- OUTSIDE RECORDS SUMMARY | 2024-09-10 16:09 | XMS_ITS | Encounter Summary ---
Author Organization [facility] Address [address] [place] [address] Phone Care Team Providers Care Supervisor Type Photography Name Role Phone Marium Agudelo DO Primary Care Provider Unava ilable Encounter Details Date Type Department Care Team (Late Contact Info) Description 05/27/2024 Documentation Only [facility] [address] [place] [address] Ruth Bradshaw [address] [place] [phone] Social History Tobacco Use Types Packs/Day [...] Visit [facility] [address] [place] [address] Johan Giron MD [address] [place] [address] [place] [address] documented as of this encounter Visit Diagnoses Not on filedocumented in this encounter Care Teams Supervisor Type Photography Relationship Specialty Start Date End Date Marium Agudelo DO PCP - General Family Medicine 02/04/20 documented as of this encounter
--- OUTSIDE RECORDS SUMMARY | 2024-09-10 16:09 | XMS_ITS | Encounter Summary ---
Author Organization [facility] Address [address] [place] [address] Phone Care Team Providers Care Cycle Repairer Name Role Phone Marium Agudelo DO Primary Care Provider Unava ilable Encounter Details Date Type Department Care Team (Late Contact Info) Description 02/15/2022 Documentation Only [facility] [address] [place] [address] Johan Giron MD [address] [place] [address] [place] [address] Social History Tobacco Use Types [...] Visit [facility] [address] [place] [address] Johan Giron MD [address] [facility] [place] [address] documented as of this encounter Visit Diagnoses Not on filedocumented in this encounter Care Teams Cycle Repairer Relationship Specialty Start Date End Date Marium Agudelo DO PCP - General Family Medicine 02/04/20 documented as of this encounter
--- OUTSIDE RECORDS SUMMARY | 2024-09-10 16:09 | XMS_ITS | Clinical Summary ---
Author Organization [employer] Address [address] [facility] [address] [place] [address] Care Team Providers Care Remote Sensing Technologist Name Role Phone MagnusMarium Primary Care Provider + [phone] Allergies No known active allergies Medications clonazePAM (KlonoPIN) 0.5 MG tablet Take 1 tablet by mouth Once per day. Active fluticasone (Flonase) 50 MCG/ACT nasal spray Administer 2 sprays into affected nostril(s) at bed time. 022 Active glucose-vitamin C 4-6 GM-MG oral gel chew 2 -4 tablets PO as needed for hypoglycemia 022 Active Insulin Lispro 100 UNIT/ML solution Inject under the skin every 8 (eight) hours. Active Acetaminophen Extra Strength 500 MG tablet Take 500 mg by mouth every 12 (twelve) hours if needed. 023 Active Blood Pressure Monitoring (Omron 3 Series BP Monitor) device USE TO CHECK BLOOD PRESSURE 2-3 TIMES PER WEEK 022 Active Continuous Blood Gluc Sensor (FreeStyle Antonina 2 Sensor) [facility] [place] USE DIRECTED FOR CONTINUOUS GLUCOSE MONITORING DAILY CHANGE EVERY 14 DAYS 023 Active estradiol (Estrace) 0.1 MG/GM vaginal cream 023 Active FeroSul 325 (65 Fe) MG tablet TAKE 1 TABLET BY MOUTH EVERY MORNING WITH BREAKFAST 023 Active hydrOXYzine HCl (Atarax) 25 MG tablet Take 25-50 mg by mouth at bedtime. 023 Active FreeStyle lancets USE TO CHECK BLOOD GLUCOSE 5 TIMES A DAY 022 Active magnesium 200 MG tablet Take 2 tablets by mouth at bedtime. Active nitroglycerin (Nitrostat) 0.4 MG SL tablet DISSOLVE 1 TABLET UNDER THE TONGUE AT THE FIRST SIGN OF CHEST PAIN. MAY REPEAT AFTER 5 MINUTES NEEDED FOR 3 DOSES. CALL 911 IF NO RELIEF Active Anoro Ellipta 62.5-25 MCG/ACT aerosol powder INHALE 1 PUFF BY MOUTH DAILY Active Continuous Blood Gluc Transmit (Dexcom G6 transmitter) misc USE 1 EACH BY MISCELLANEOUS ROUTE EVERY 3 (THREE) MONTHS. Active gabapentin (Neurontin) 300 MG capsuleIndicatio ns:Other chronic pain TAKE 1 CAPSULE BY MOUTH THREE TIMES A DAY 90 capsule 3 023 Active lisinopril 40 MG tablet Take 1 tablet (40 mg) by mouth in the morning. 90 tablet 3 Active Insulin Disposable Pump (Omnipod 5 G6 Pods, Gen 5,) misc CHANGE POD EVERY 3 DAYS Active Blood Glucose Monitoring Suppl (FreeStyle Lite) w/Device kit USE TO TEST BLOOD GLUCOSE DAILY 1 kit Active aspirin (Aspirin Low Dose) 81 MG EC tablet TAKE 1 TABLET BY MOUTH EVERY DAY 90 tablet 1 Active atorvastatin (Lipitor) 40 MG tablet Take 1 tablet by mouth Once per day. Active naloxone (Narcan) 4 mg/0.1 mL nasal spray SPRAY 0.1 MILLIMETERS BY INTERNASAL ROUTE INSERT 1 NOSTRIL MAY REPEAT DOSE EVERY 2-3 MINUTES NEEDED ALTERNATING WITH EACH DOSE 2 each Active FREESTYLE LITE test stripIndications :Type 1 diabetes mellitus with stage 3 chronic kidney disease, unspecified whether stage 3a or 3b CKD ([facility]) TEST BLOOD SUGAR FOUR TIMES DAILY 150 strip 3 Active clopidogrel (Plavix) 75 MG tablet Take 1 tablet by mouth Once per day. Active Ventolin HFA 108 (90 Base) MCG/ACT inhaler INHALE 2 PUFFS BY MOUTH FOUR TIMES DAILY NEEDED FOR SHORTNESS OF BREATH OR WHEEZING Active Lantus SoloStar 100 UNIT/ML pen Inject 17 Units under the skin at bedtime. 08/05/2 024 Active zolpidem (Ambien) 10 MG tablet Take 1 tab at bedtime please wait at least 4 hours after taking the clonazepam to take the med Active amLODIPine (Norvasc) 10 MG tablet Take 1 tablet by mouth Once per day. Active cholecalciferol VITAMIN D (Vitamin D-3) 50 MCG (1999) capsuleIndicatio ns:Vitamin D deficiency TAKE 1 CAPSULE BY MOUTH EVERY MORNING 90 capsule 3 025 Active valACYclovir (Valtrex) 500 MG tablet TAKE 1 TABLET(500 MG) BY MOUTH IN THE MORNING 30 tablet 5 Active Diclofenac Sodium 1 % gel APPLY 2 GRAMS TOPICALLY IF NEEDED IN THE MORNING AND AT BEDTIME (PAIN). 100 g 3 025 Active docusate sodium (Colace) 100 MG capsule Take 1 capsule (100 mg) by mouth 2 times daily. 60 capsule 11 025 2025 Active polyethylene glycol, PEG, 3350 (MiraLax) 17 GM/SCOOP powder Take 17 g by mouth if needed each day (constipation). 527 g 2 025 2025 Active Calcium Polycarbophil (fiber) 625 MG tablet Take 1 tablet (625 mg) by mouth 2 times daily. 60 tablet 11 025 2025 Active omeprazole (PriLOSEC) [address] capsule Take 20 mg by mouth. 015 Active Gemtesa 75 MG tablet Take 1 tablet by mouth Once per day. Active famotidine (Pepcid) 40 MG tabletIndication s:Chronic GERD TAKE 1 TABLET BY MOUTH EVERY DAY IN THE MORNING 90 tablet 1 025 Active oxyCODONE-acetam inophen (Percocet) 5-325 MG tabletIndication s:Chronic pain syndrome Take 1 tablet by mouth every 4 (four) hours if needed for severe pain for up to 28 days. 140 tablet 025 2024 Active metoprolol succinate XL (Toprol-XL) 25 MG 24 hr tablet Take 25 mg by mouth Once per day. 024 2024 Active carvedilol (Coreg) 12.5 MG tablet Take 1 tablet by mouth 2 times daily. 023 2024 Discontinued(M ed list cleanup (will not trigger notification to Pharmacy)) oxyCODONE-acetam inophen (Percocet) 5-325 MG tabletIndication s:Chronic pain syndrome Take 1 tablet by mouth every 4 (four) hours if needed for severe pain for up to 28 days. 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: 05/24/23 Assessment & Plan (03/18/2024 4:58 PM EST): -Good engagement and participation with Group Medical Visit mode -Encouraged multifactorial approach to pain control including pharm and non- pharm modalities -UTOX and Pill count as expected Tobacco dependence 07/07/2022 Chronic low back pain 07/07/2022 Assessment & Plan (07/18/2023 2:50 PM EDT): Sx unchanged -L-spine MRI with moderate canal stenosis, facet arthropathy and b/l foraminal disc protrusions with nerve root impingement Aug 2022 -cont gabapentin TID -continue percocet 5x/day for pain control -encouraged baclofen to help with mm spasm -encouraged lidocaine patches -keep upcoming eval with pain mgmt as scheduled -referred to PT -f/u NS prn -advised rtc if sx change or worsen Major depression, recurrent, chronic 07/07/2022 Assessment & Plan (07/18/2023 2:40 PM EDT): -she denies any SI/HI -she has the number for crisis -cont current med regimen as per psychiatry -f/u with therapist and psychiatrist as scheduled Chronic nasal congestion 07/05/2022 Assessment & Plan (07/18/2023 2:53 PM EDT): Significantly improved -cont claritin and flonase as needed -f/u with neighborhood aide as needed Abnormal chest CT 07/05/2022 Assessment & Plan (07/18/2023 2:52 PM EDT): CT chest LRADS 2 an 2023 -f/u with pulm as scheduled Healthcare maintenance 07/05/2022 Assessment & Plan (07/18/2023 2:59 PM EDT): -s/p flu vaccine FEB 2023 -COVID vaccine today -s/p Tdap AUG 2021 -s/p pneumovax AUG 2021 -PCV20 today -Hep B immune -encouraged shingrix vaccine -mammo BIRADS 08 MAR 2023 -pap nml/HPV neg 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, review next visit* -colonoscopy with tubular adenoma and hyperplastic polyp AUG 2016 at [facility], awaiting anesthesia eval -STI/HIV screen negative Apr 2022 Anxiety 05/31/2022 Carpal tunnel syndrome on both sides 05/31/2022 Diabetic neuropathy 05/31/2022 Glaucoma 05/31/2022 Hyperlipidemia 05/31/2022 Assessment & Plan (07/18/2023 2:40 PM EDT): LDL at goal APR 2022 -cont lipitor nightly -check lipids prior to next visit Presence of insulin pump 05/31/2022 Urinary incontinence 05/31/2022 Tubular adenoma 05/31/2022 Degenerative disc disease, cervical 05/31/2022 Overview (05/31/2022): without significant neural foraminal narrowing or spinal stenosis. C-spine X-Ray from [facility] -07 Diabetic nephropathy 05/31/2022 Chronic constipation 04/13/2022 Degenerative disc disease, lumbar 04/13/2022 Assessment & Plan (03/18/2024 4:58 PM EST): 08/07/22: Lumbar spine MRI: moderate canal stenosis, facet arthropathy and b/l foraminal disc protrusions with nerve root impingement Medications: Gabapentin TID Percocet 5x/day for pain control (Q4H PRN) Baclofen PRN muscle spasms Lidocaine patches PRN Referrals: Physical therapy referral placed by PCP 07/18/23 Assessment & Plan (11/27/2023 2:19 PM EDT): 08/07/22: Lumbar spine MRI: moderate canal stenosis, facet arthropathy and b/l foraminal disc protrusions with nerve root impingement Medications: Gabapentin TID Percocet 5x/day for pain control (written Q4H PRN) Baclofen PRN muscle spasms Lidocaine patches PRN Referrals: Physical therapy referral placed by PCP 07/18/23 -Good engagement and participation with Group Medical Visit model, today was first visit. -Encouraged multifactorial approach to pain control including pharm and non- pharm modalities -UTOX and Pill count as expected History of COVID-19 04/13/2022 Chronic gastroesophageal reflux disease 04/13/20 Assessment & Plan (07/18/2023 2:51 PM EDT): Sx improved -cont protonix BID -cont pepcid nightly -awaiting EGD with GI Chronic pain syndrome 12/24/2017 Essential hypertension 04/23/2017 Assessment & Plan (07/18/2023 2:38 PM EDT): BP controlled -cont lisinopril and chlorthalidone daily -Cr/GFR stable with moderate urine microalbumin APR 2022->repeat prior to next visit -optho as above -f/u with renal as scheduled, due NOV 2023 Stage 3 chronic kidney disease 04/23/2017 Overview (05/31/2022): -Follows with Dr. Escalera Type 1 diabetes 05/22/2014 Assessment & Plan (07/18/2023 2:37 PM EDT): A1c not at goal -cont insulin pump as per endo -cont regular FS monitoring and bring glucometer to visits for review -cont lisinopril and lipitor daily -f/u w/ endo as scheduled -s/p optho eval JUL 2023 at [facility] -foot exam next visit* Peripheral arterial disease 07/04/2011 Overview (06/14/2022): Mild bilateral femoro-popliteal level occlusive disease Resolved Problems Problem Noted Date Diagnosed Date Resolved Date Exertional chest pain 07/05/20222022 Urinary urgency 06/14/2022 07/07/2022 Type 2 diabetes mellitus 06/14/2022 Cigarette smoker 05/31/2022 07/07/2022 Class 1 obesity 05/31/2022 07/07/2022 Insomnia 05/31/2022 07/07/2022 Intermittent claudication 05/31/2022 Mixed stress and urge urinary incontinence 05/31/2022 07/07/2022 Nocturnal enuresis 05/31/2022 Tendonitis 05/31/2022 07/07/2022 Pain of foot 05/31/2022 07/07/2022 Overview (05/31/2022): Follows with Dr. Newell. Episodes of recurrent tendinopathy in feet Depression 05/31/2022 07/07/2022 Lumbago 05/31/2022 07/07/2022 Chronic headache disorder 05/31/2022 Overview (05/31/2022): negative CT scan of the Head in 2012 Constipation 05/31/2022 07/07/2022 Vaginal atrophy 05/31/2022 07/07/2022 HTN (hypertension) 05/31/2022 Obstructive chronic bronchit is without exacerbation 05/31/2022 07/07/2022 Type 1 diabetes 05/01/2022 07/07/2022 Pain of upper extremity 04/13/2022 03/07/2022 Overview (06/14/2022): -Follows with Dr. Mary Newell. Chronic flexor tendinopathy, numerous hand surgeries including CTS releases, multiple trigger finger relases, and tendon reconstruction -Follows with Ortho Dr. Newell.Numerous episodes of recurrent tendinopathy in hands, + elbows Depressive disorder 04/13/2022 07/08/19 23 Absolute anemia 02/21/2022 07/07/2022 Hematuria syndrome 12/21/2021 3 Unspecified abdominal pain 12/21/2021 0 08/09/2022 Diabetic nephropathy associa karmen with type 1 diabetes mellitus 07/01/2019 07/07/2022 Neuropathy 10/03/2018 07/07/2022 Encounters Date Type Department Care Team Description 09/10/2024 2:15 PM EDT Office Visit [facility] [address] [facility] [place] [address] Latoya Odonnell MD Type 1 diabetes mellitus with stage 3 chronic kidney disease, unspecified whether stage 3a or 3b CKD ([facility]); Hyponatremia 09/10/2024 Patient Outreach [facility] [address] [place] [address] Marium Agudelo DO 09/10/2024 Patient Outreach [facility] [address] [place] [address] Marium Agudelo DO 09/09/2024 Telephone [facility] [address] [facility] [place] [address] Latoya Odonnell MD 09/09/2024 Orders Only [facility] [address] [place] [address] Sunshine Chávez, PharmD 09/04/2024 Patient Outreach [facility] [address] [place] [address] Marium Agudelo DO 09/02/2024 Patient Outreach [facility] [address] [place] [address] Marium Agudelo DO Transition Of Care (Tcm) (HDF- Scheduled) 09/02/2024 Telephone [facility] [address] [place] [address] Marium Agudelo DO Hospital Follow-up 09/02/2024 Patient Outreach [facility] [address] [place] [address] Marium Agudelo DO 09/01/2024 Refill [facility] [address] [place] [address] Marium Agudelo DO Chronic pain syndrome 09/01/2024 Patient Outreach [address] [address] Marium Agudelo DO Transition Of Care (Tcm) (HDF unscheduled LVM ) 08/30/2024 Refill [facility] [address] [place] [phone] Marium Agudelo DO Essential hypertension 08/28/2024 Patient Outreach [address] [address] Marium Agudelo DO 08/27/2024 Patient Outreach [address] [address] Marium Agudelo DO Care Coordination (CM/CHW outreach) 08/27/2024 Patient Outreach [address] [address] Marium Agudelo DO Care Coordination (CHW Chart Review) 08/27/2024 Patient Outreach [address] [address] Marium Agudelo DO Care Management (C3CM- chart review) 08/27/2024 Patient Outreach [address] [address] Marium Agudelo DO 08/04/2024 11:30 AM EDT Office Visit [address] [address] Marium Agudelo DO Type 1 diabetes mellitus with stage 3 chronic kidney disease, unspecified whether stage 3a or 3b CKD (CMS/HCC) (Primary Dx); Essential hypertension; Other hyperlipidemia; Major depression, recurrent, chronic (CMS/HCC); Peripheral arterial disease (CMS/HCC); Chronic bilateral low back pain with bilateral sciatica; Chronic nasal congestion; Tobacco dependence; Chest pain, unspecified type; Coronary artery disease involving [place] coronary artery of [place] heart, unspecified whether angina present; Pain of both heels; Polyarthralgia; Healthcare maintenance; Vitamin D deficiency; Chronic GERD 08/04/2024 Travel 08/04/[address] [address] Marium Agudelo DO Chronic pain syndrome 07/18/2024 Population Health Risk Score [facility] ([facility]) Department [address] [place] [id number] Provider, Population Health Generic 07/12/2024 Refill [facility] [address] [place] [address] Marium Agudelo DO Essential hypertension 07/07/2024 1:00 PM EST Clinical Support [facility] [address] [place] [address] Zonia Padilla RN Chronic bilateral low back pain with bilateral sciatica (Primary Dx) 07/07/2024 Refill [facility] [address] [place] [address] Zonia Padilla RN Chronic pain syndrome 07/07/2024 Travel 07/04/2024 Refill [facility] [address] [facility] [place] [address] Marium Agudelo DO Chronic pain syndrome 06/19/2024 Refill [facility] [address] [facility] [place] [address] Latoya Odonnell MD 06/17/2024 Travel 06/17/2024 Telephone [facility] [address] [facility] [place] [address] Marium Agudelo DO No Show 06/17/2024 Telephone [facility] [address] [place] [address] Iggy Bolanos RN 06/13/2024 Telephone [facility] [address] [place] [address] Marium Agudelo DO CRITICAL RESULT CALL from Last 3 Months Immunizations Name Administration Dates Next Due Hep B, adult 05/06/2015 Influenza injectable quadriv alent IIV4 with preservative 01/22/2018,03/19/2017 Influenza injectable quadriv alent preservative free 02/07/2023,02/27/2022,04/06/2021,05/13 Influenza, IIV3, injectable 04/06/2021,0 01/22/2018,03/19/2017,03/04 Influenza, seasonal, injecta ble, preservative free 03/20/2024 Moderna Covid-19 Vaccine 12+ 08/26/2020,07/24/19 21 Pfizer Covid-19 Vaccine 12+ 03/20/2024,,08/03/2021 Pfizer Covid-19 Vaccine 12+ yumiko-sucrose (Paz Cap) 08/03/2021 Pneumococcal Conjugate PCV 20 07/18/2023 Pneumococcal Polysaccharide PPSV23 08/12/2021, Tdap 08/12/2021,03/04/2015 Family History Medical History Relation Name Comments Coronary artery disease Brother Diabetes Father Kidney disease Father Cancer Maternal Grandmother bladder Diabetes Mother Relation Name Status Comments Brother Father Maternal Grandmother Mother Social History Tobacco Use Types Packs/Day Years Used Date Smoking Tobacco: Every Day Cigarettes Passive Smoke Exposure: Current Smokeless Tobacco: Never Tobacco Cessation:Ready to Q uit: Not Asked; Counseling Given: Not Answered Alcohol Use Standard Drinks/Week Comments Never 0 [...] Orientation Straight 03/06/2022 10 :17 AM EDT Last Filed Vital Signs Vital Sign Reading Time Taken Comments Blood Pressure 159/72 09/10/2024 2:32 PM EDT Pulse 68 09/10/2024 2:32 PM EDT Temperature 36.3 ??C (97.3 ??F) 09/10/2024 2:32 PM ED T Respiratory Rate 18 09/10/2024 2:32 PM EDT Oxygen Saturation 97% 11/19/2023 11:37 AM EDT Inhaled Oxygen Concentration - - Weight 65.6 kg (144 lb 9.6 oz) 09/10/2024 2:32 P M EDT Height 144.8 cm (4' 9 ) 09/10/2024 2:32 PM EDT Body Mass Index 31.29 09/10/2024 2:32 PM EDT Plan of Treatment Upcoming Encounters Date Type Department Care Team (Late st Contact Info) Description 10/07/2024 1:00 PM EDT Clinical Support [facility] [address] [place] [address] Zonia Padilla RN 12/22/2024 2:30 PM EDT Office Visit [facility] [address] [place], [place] [phone] Amber Gary, OD [address] [place] [address] Health Maintenance Due Date Last Done Comments CT Colonography 1965 FIT DNA/Cologuard 1965 FIT 1965 FOBT 1965 Sigmoidoscopy 1965 Diabetes: Foot Exam 1975 Alcohol/Substance Use Screening 1977 Zoster Vaccines (1 of 2) 2015 Hepatitis B Vaccines (2 of 3 - 19+ 3-dose series) 06/03/2015 05/06/2015 Colonoscopy 08/08/2021 08/08/2016 Colorectal Cancer Screening 08/08/2021 Cervical Cancer Screening 07/04/2022 HPV/Cotest 07/04/2022 07/04/2017 Pap Smear 07/04/2022 07/04/2017 Depression Screening 07/17/2024 07/18/2023, 07/18/19 24 Mammogram 09/05/2024 09/06/2023, 03/08, 09/12/2022, Additional history exists Lipid Panel 11/22/2024 11/23/2023, 07/05, 04/10/2022, Additional history exists Diabetes: Hemoglobin A1C 12/11/2024 025, 08/04/2024, 06/18/2024, Additional history exists SDOH Screening 03/06/2025 03/06/2024 Eye Exam 07/16/2025 07/17/2023, 07/05, 07/17/2023, Additional history exists Tobacco Screening 09/10/2025 09/10/2024 DTaP/Tdap/Td Vaccines (3 - Td or Tdap) 08/13/2031 08/12/2021, 03/04/2015 RSV Patients and Patients Aged 60 years or older (1 - 1-dose 75+ series) 01/13/2040 HIV Screening Completed 07/18/2023, 09/2021, 04/27/2021, Additional history exists Hepatitis C Screening Completed 07/18/2023 , 04/10/2022, 04/27/2021, Additional history exists Pneumococcal Vaccine: 50+ Years Completed 07/18/2023, 08/12/2021, 03/18/2015 COVID-19 Vaccine Completed 03/20/2024, , 03/23/2022, Additional history exists Influenza Vaccine Completed 03/20/2024, , 02/27/2022, Additional [...] patient's age to complete this topic Meningococcal Vaccine Aged Out No keith albino eligible based on patient's age to complete this topic RSV under 20 months Aged Out No longe r eligible based on patient's age to complete this topic Rotavirus Vaccines Aged Out No longer eligible based on patient's age to complete this topic Procedures Procedure Name Priority Date/Time Associated Diagnosis Comments POCT GLYCATED HEMOGLOBIN, TOTAL Routine 09/10/2024 2:33 PM EDT Type 1 diabetes mellitus with stage 3 chronic kidney disease, unspecified whether stage 3a or 3b CKD (CMS/HCC) POCT GLUCOSE Routine 09/10/2024 2:33 PM EDT Type 1 diabetes mellitus with stage 3 chronic kidney disease, unspecified whether stage 3a or 3b CKD (CMS/HCC) POCT GLUCOSE Routine 08/04/2024 12:07 PM EDT Type 1 diabetes mellitus with stage 3 chronic kidney disease, unspecified whether stage 3a or 3b CKD (CMS/HCC) POCT GLYCATED HEMOGLOBIN, TOTAL Routine 08/04/2024 12:07 PM EDT Type 1 diabetes mellitus with stage 3 chronic kidney disease, unspecified whether stage 3a or 3b CKD (CMS/HCC) POCT JASMIN-14 URINE DRUG SCREEN Routine 07/07/2024 12:56 PM EST Chronic bilateral low back pain with bilateral sciatica LIPID PANEL, STANDARD Routine 11/23/2023 1:40 PM EDT Bilateral hand swelling BI MAMMOGRAM SCREENING TOMOSYNTHESIS BILATERAL Routine 09/06/2023 3:25 PM EDT HEPATITIS C AB W/REFL TO HCV RNA, QN, PCR Routine 07/18/2023 1:07 PM EDT Healthcare maintenance HIV 1/2 ANTIGEN/ANTIBODY, FOURTH GENERATION W/RFL Routine 07/18/2023 1:07 PM EDT Healthcare maintenance ZZZ HISTORICAL HPV MRNA E6/E7 Routine 07/04/2017 4:20 PM EST HM PAP/HPV Routine 07/04/2017 HM COLONOSCOPY Routine 08/08/2016 from Last 3 Months or Most Recently Relevant to Health Maintenance Results * (ABNORMAL) POCT HGB A1C (09/10/2024 2:33 PM EDT) Only the most recent of2 resultswithin the time period is included. Hemoglobin A1C 7.7(A) 4.0 - 6.0 % QC Media Lot # [id number] Lot# Expiration Date Blood 09/10/2024 2:33 PM EDT Latoya Alberts MD POINT OF CARE TEST EN TER/EDIT ORDERABLES Final Result * (ABNORMAL) POCT Glucose (09/10/2024 2:33 PM EDT) Only the most recent of2 resultswithin the time period is included. Glucose Blood, POC 255(A) 60 - 200 mg/dL QC Media Lot # [id number] Lot# Expiration Date Blood Capillary blood specimen / Unknown 09/10/2024 2:33 PM EDT us Latoya Alberts MD POINT OF CARE TEST EN TER/EDIT ORDERABLES Final Result * POCT JASMIN-14 Urine Drug Screen (07/07/2024 12:56 PM EST) Oxycodone Screen, Urine Positive Urine Urine specimen obtained by clean catch procedure / Unknown 07/07/2024 12:56 PM EST Chen Zonia Padilla, RN - 07/07/2024 12:56 PM EST UTOX cup Lot#[id number] Exp. 12/24/25 Internal Pass Control Marium Agudelo DO POINT OF CARE TEST ENTER/YAYO T ORDERABLES Final Result * (ABNORMAL) Lipid Panel, Standard (11/23/2023 1:40 PM EDT) Triglycerides 119 <150 mg/dL [facility] Comment:Desirable Triglyceri de: less than 150 mg/dLBorderline High Triglyceride 150-199 mg/dLHigh Triglyceride: 200-499 mg/dLVery High Triglyceride: greater than or equal to 5OO mg/dL Cholesterol 114 <200 mg/dL [facility] Comment:Desirable Cholestero l: less than 200 mg/dLBorderline High Cholesterol: 200-239 mg/dLHigh Cholesterol: greater than 239 mg/dL LDL Cholesterol Calculated 52 <100 mg/dL [facility] Comment:Desirable LDL: less than 100 mg/dLNear Optimal/Above Optimal LDL: 110- 129 mg/dLBorderline High LDL: 130-159 mg/dLHigh LDL: 160-189 mg/dLVery High LDL: greater than or equal to 190 mg/dL HDL Cholesterol 39(L) >40 mg/dL [facility] Comment:Desirable HDL: great er than 40 mg/dL Note: This HDL assay may give artificially low results in patients with liver disease. Blood Venous blood specimen / Unknown 11/23/2023 1:40 PM EDT 11/23/2023 4:07 PM EDT Marium Agudelo DO LAB BLOOD ORDERABLES Final R esult [facility] [address] [place] [phone] * BI Mammogram Screening Tomosynthesis Bilateral (09/06/2023 3:25 PM EDT) Anatomical Region Laterality Modality Breast Bilateral Mammography 09/06/2023 3:25 PM EDT Narrative 09/17/2023 1:35 PM EDT ? [facility] ? [address] ?[place] [address] ? Mammography Report ? Signed ? Patient: Maxwell,Tracy ?MR#: [id number] ?? [id number] ? : 1965 ?Acct:[id number] ? Age/Sex: 58 / F ?ADM Date: 09/06/23 ? Loc: HO.MAMMO ? Attending Dr: Marium Agudelo DO ? Ordering Physician: Dylan Small MD ?Results: 2Benig ?? n Findings ? Date of Service: 09/06/23 ?Follow Up: 1 Year From Orig ?? inal Mammogram ? Procedure(s): MM tomosynthesis screening BI ?? Accession Number(s): [id number] ? cc: Marium Agudelo DO; Dylan Small MD ? EXAMINATION: ?? MM SCREENING DIGITAL BREAST TOMOSYNTHESIS, BILATERAL ? CLINICAL INFORMATION: ? Screening. Asymptomatic. ? COMPARISON: ?? Mammography: This study is compared with prior exams dating back to ?? 2018. ? TECHNIQUE: ?? Digital breast tomosynthesis is performed in both the craniocaudal and ?? mediolateral oblique views along with computer-aided detection (CAD). ?? Synthesized 2D images are generated from the tomosynthesis. ? FINDINGS: ?? The breasts are heterogeneously dense, which may obscure small masses ?? (ACR BI-RADS breast composition Category c). ? There are no significant masses, abnormal calcifications, or other ?? abnormalities. ? 2 tissue markers in the medial aspect of the left breast and some ?? residual benign calcifications associated with one of the tissue ?? markers. ? Few, benign calcifications are present in each breast. ? MM/MM tomosynthesis screening BI ?? IMPRESSION: ?? No mammographic evidence of malignancy. ? ASSESSMENT: ? BI-RADS BI-RADS 2 - Benign Findings ? RECOMMENDATION: ?? Routine annual mammography screening. ? 1 year F/U ? This examination should not preclude the clinical evaluation of a ?? suspicious palpable abnormality. ? This patient's information was entered into a reminder system with a ?? target due date for their next mammogram. ? Dictated By: ?Luisa Fortune MD ? Signed By: ?<Electronically signed by Luisa Fortune MD in OV> ? 09/17/23 1332 ? DD/ 1525 ? TD/TT: ? Gas Main And Line Fitter: ? Procedure Note Giana Jackson - 09/17/2023 [facility] [address] [place] [address] Mammography Report Signed Patient: Robyn Arreola#: [id number] : 1965Acct:[id number] Age/Sex: 58 / FADM Date: 09/06/23 Loc: HO.MAMMO Attending Dr: Marium Agudelo DO Ordering Physician: Dylan Small MDResults: 2Benig n Findings Date of Service: 09/06/23Follow Up: 1 Year From Orig inal Mammogram Procedure(s): MM tomosynthesis screening BI Accession Number(s): [id number] cc: Marium Agudelo DO; Dylan Small MD EXAMINATION: MM SCREENING DIGITAL BREAST TOMOSYNTHESIS, BILATERAL CLINICAL INFORMATION: Screening. Asymptomatic. COMPARISON: Mammography: This study is compared with prior exams dating back to 2019. TECHNIQUE: Digital breast tomosynthesis is performed in both the craniocaudal and mediolateral oblique views along with computer-aided detection (CAD). Synthesized 2D images are generated from the tomosynthesis. FINDINGS: The breasts are heterogeneously dense, which may obscure small masses (ACR BI-RADS breast composition Category c). There are no significant masses, abnormal calcifications, or other abnormalities. 2 tissue markers in the medial aspect of the left breast and some residual benign calcifications associated with one of the tissue markers. Few, benign calcifications are present in each breast. MM/MM tomosynthesis screening BI IMPRESSION: No mammographic evidence of malignancy. ASSESSMENT: BI-RADS BI-RADS 2 - Benign Findings RECOMMENDATION: Routine annual mammography screening. 1 year F/U This examination should not preclude the clinical evaluation of a suspicious palpable abnormality. This patient's information was entered into a reminder system with a target due date for their next mammogram. Dictated By: Luisa Fortune MD Signed By: <Electronically signed by Luisa Fortune MD in OV> 09/17/23 1332 DD/ 1525 TD/TT: Gas Main And Line Fitter: [facility] External Provider IMG BI PROCEDURES Final Result * Hepatitis C Antibody with Reflex to HCV, RNA, Quantitative, Real-Time PCR (07/18/2023 1:07 PM EDT) Hepatitis C Antibody Nonreactive Nonreactive [facility] Comment:Antibodies to HCV no t detected; does not exclude early acuteHCV infection. Blood Venous blood specimen / Unknown 07/18/2023 1:07 PM EDT 07/18/2023 3:59 PM EDT Marium Agudelo DO LAB BLOOD ORDERABLES Final R esult [facility] [address] [place] [phone] * HIV-1/2 Antigen and Antibodies, Fourth Generation, with Reflexes (07/18/2023 1:07 PM EDT) Pathologist [facility] HIV AB/AG Nonreactive Nonreactive [facility] Comment:HIV-1 p24 Ag and/or HIV-1/HIV-2 Ab not detected.A test result that is nonreactive does not exclude thepossibility of exposure to or infection with HIV-1 and/orHIV-2. Nonreactive results in this assay for individualswith prior exposure to HIV-1 and/or HIV-2 may be due toantigen and antibody levels that are below the limit ofdetection of this assay.The [employer] HIV Ag/Ab Combo assay result andsupplemental assay results should be interpreted inconjunction with the patient's clinical presentation,history and other laboratory results. If the results areinconsistent with clinical evidence, additional testing issuggested to confirm the result. Blood Venous blood specimen / Unknown 07/18/2023 1:07 PM EDT 07/18/2023 3:59 PM EDT us Marium Agudelo DO LAB BLOOD ORDERABLES Final R esult [facility] [address] [place] [phone] * HPV mRNA E6/E7 (07/04/2017 4:20 PM EST) Pathologist [facility] HPV mRNA E6/E7 Not Detected NOT DETECTED [facility] Comment: This test was performed using the APTIMA(R) HPV Assay ([employer] This assay detects E6/E7 viral messenger RNA (mRNA) from 14 high-risk HPV types (16,18,31,33,35,39,45,51, 52,56,58,59,66,68). For additional information please refer to: http://education.Point.io.nubelo/faq/YII949y3 (This link is being provided for informational/ educational purposes only.) Test Performed by [employer], [employer] [facility], [address] [place] [address] Joaquin Rosario M.D., Ph.D., Director of [employer] , [facility] [id number] Please note: ??Effective 01/17/2016, HPV testing will be performed using [employer] APTIMA test which targets mRNA. Detecting mRNA instead of DNA, as in older methods, offers significant improvements in specificity. 07/04/2017 4:20 PM EST Nery Brody CNM HISTORICAL/NON ORDERABLE LABS Final Result [facility] Anywhere [address] * Pap Smear (07/04/2017) Pap smear performed Historical Provider MD HEALTH MAINTENANCE Final Result * Colonoscopy (08/08/2016) Colonoscopy performed Historical Provider HEALTH MAINTENANCE Edited Result - Final from Last 3 Months or Most Recently Relevant to Health Maintenance Insurance Care Teams Remote Sensing Technologist Relationship Specialty Start Date End Date Marium Agudelo DO [address] [place] [address] PCP - General Family Medicine 01/24/19
--- OUTSIDE RECORDS SUMMARY | 2024-09-10 16:09 | XMS_ITS | Encounter Summary ---
Author Organization [employer] Address [address] [facility] 7t [place] [address] Care Team Providers Care Ground Operations Crew Member Name Role Phone Marium Agudelo DO Primary Care Provider + [phone] Iggy Bolanos RN Unavailable [phone] Reason for Visit * Reason Comments Med Refill Encounter Details Date Type Department Care Team ([facility] st Contact Info) Description 02/21/2023 Refill [facility] [address] [place] [address] Latoya Odonnell MD [address] [place] [address] Chronic GERD Social History Tobacco Use Types [...] Description 10/07/2024 1:00 PM EDT Clinical Support [facility] [address] [place] [address] Zonia Padilla RN 12/22/2024 2:30 PM EDT Office Visit [facility] [address] [place] [address] Abdirahman, Amber, OD [address] [place] [address] documented as of this encounter Visit Diagnoses Diagnosis Chronic GERD documented in this encounter Additional Health Concerns Assessment Noted Time PHQ-9 Depression Total Score: 0 07/06/19 23 11:24 AM EST documented as of this encounter Care Teams Ground Operations Crew Member Relationship Specialty Start Date End Date Marium Agudelo DO [address] [place] [address] PCP - General Family Medicine 01/24/19 Iggy Bolanos RN [address] [place] [address] Roofer ApplicatorPreschool Teacher 02/20/24 06/04/24 documented as of this encounter
--- OUTSIDE RECORDS SUMMARY | 2024-09-10 16:09 | XMS_ITS | Encounter Summary ---
Author Organization [facility] Address [address] [place] [address] Phone Care Team Providers Care Junior Staff Accountant Name Role Phone Marium Agudelo DO Primary Care Provider Unava ilable Encounter Details Date Type Department Care Team (Late Contact Info) Description 05/22/2024 Documentation Only [facility] [address] [place] [address] Ruth Bradshaw [address] [place] [phone] Social History Tobacco Use Types Packs/Day [...] Visit [facility] [address] [place] [address] Johan Giron MD [address] [place] [address] [place] [address] documented as of this encounter Visit Diagnoses Not on filedocumented in this encounter Care Teams Junior Staff Accountant Relationship Specialty Start Date End Date Marium Agudelo DO PCP - General Family Medicine 02/04/20 documented as of this encounter
--- OUTSIDE RECORDS SUMMARY | 2024-09-10 16:09 | XMS_ITS | Encounter Summary ---
Author Organization [employer] Address [address] [facility] [address]t [place] [address] Care Team Providers Care C Unix Developer Name Role Phone Marium Agudelo DO Primary Care Provider + [phone] Iggy Bolanos RN Unavailable [phone] Reason for Visit * Reason Comments Med Refill Encounter Details Date Type Department Care Team ([facility] st Contact Info) Description 03/30/2023 Refill [facility] [address] [place] [address] Latoya Odonnell MD [address] [place] [address] Chronic GERD Social History Tobacco Use Types [...] Description 10/07/2024 1:00 PM EDT Clinical Support [facility] [address] [place] [address] Zonia Padilla RN 12/22/2024 2:30 PM EDT Office Visit [facility] [address] [place] [address] Abdirahman, Amber, OD [address] [place] [address] documented as of this encounter Visit Diagnoses Diagnosis Chronic GERD documented in this encounter Additional Health Concerns Assessment Noted Time PHQ-9 Depression Total Score: 0 07/06/19 23 11:24 AM EST documented as of this encounter Care Teams C Unix Developer Relationship Specialty Start Date End Date Marium Agudelo DO [address] [place] [address] PCP - General Family Medicine 01/24/19 Iggy Bolanos RN [address] [place] [address] Manager AdministrativeReservoir Engineering Manager 02/20/24 06/04/24 documented as of this encounter
--- OUTSIDE RECORDS SUMMARY | 2024-09-10 16:09 | XMS_ITS | Encounter Summary ---
Author Organization [employer] Address [address] [facility] [address]t [place] [address] Care Team Providers Care Electrical Manager Name Role Phone Marium Agudelo DO Primary Care Provider + [phone] Iggy Bolanos RN Unavailable [phone] Reason for Visit * Reason Comments Med Refill Encounter Details Date Type Department Care Team ([facility] Contact Info) Description 10/20/2022 Refill [facility] [address] [place] [phone] Marium Agudelo DO [address] [place] [phone] Chronic GERD Social History Tobacco Use Types [...] Upcoming Encounters Date Type Department Care Team ([facility] Contact Info) Description 10/07/2024 1:00 PM EDT Clinical Support [facility] [address] [place] [address] Zonia Padilla RN 12/22/2024 2:30 PM EDT Office Visit [facility] [address] [place], [place] [phone] Amber Gary, OD [address] [place] [address] documented as of this encounter Visit Diagnoses Diagnosis Chronic GERD documented in this encounter Additional Health Concerns Assessment Noted Time PHQ-9 Depression Total Score: 0 07/06/19 23 11:24 AM EST documented as of this encounter Care Teams Electrical Manager Relationship Specialty Start Date End Date Marium Agudelo DO [address] [place], [place] [phone] PCP - General Family Medicine 01/24/19 Iggy Bolanos RN [address] [place] [address] Kettle CleanerPackaging Machine Operator 02/20/24 06/04/24 documented as of this encounter
--- OUTSIDE RECORDS SUMMARY | 2024-09-10 16:09 | XMS_ITS | Encounter Summary ---
Author Organization [employer] Address [address] [facility] 7t [place] [address] Care Team Providers Care Director Of Clinical Education Name Role Phone Marium Agudelo DO Primary Care Provider + [phone] Iggy Bolanos RN Unavailable [phone] Reason for Visit * Reason Onset Date Comments Appointment Request 08/17/2022 Encounter Details Date Type Department Care Team ([facility] st Contact Info) Description 08/17/2022 Telephone [facility] [address] [place], [place] [phone] Marium Agudelo DO [address] [place], [place] [phone] Appointment Request Social History Tobacco Use Types [...] suspected to have Coronavirus/COVID-19? No / Unsure 08/09/2022 11:12 AM EDT documented as of this encounter Miscellaneous Notes * Telephone Encounter - Shilpa Sales RN - 08/17/2022 4:54 PM EDT Triage call with [facility] [place] [id number] Pt reports for 3 days now has had headache and sinus symptoms. Pt reports facial pain over sinus areas , bilateral earaches, no fever or cough. Pt denies nasal drainage. Pt has been using saline nasal wash, taking tylenol and hasn't had any relief. Advised Pt to come to [facility] first thing in morning, hours are 830am- 400pm. Pt agreed to disposition and home care reviewed. Protocol Used: Sinus Pain or Congestion (Adult) Protocol-Based Disposition: See in Office or Video Visit Today Override (Final) Disposition: See in Office or Video Visit Today or Tomorrow Override Reason: No appointments available Video visit not offered Positive Triage Questions: * Earache * Using nasal washes and pain medicine > 24 hours and sinus pain (lower forehead, cheekbone, or eye) persists * Patient wants to be seen * All higher-acuity triage questions were negative Care Advice Discussed: * Reassurance and Education - Colds and Sinus Congestion * Hydration * Expected Course * Reasons To Call Back - Severe pain persists over 2 hours after pain medicine - Sinus pain persists over 1 day after using nasal washes - Sinus congestion (fullness) persists over 10 days - Fever lasts over 3 days - You become worse * Pain and Fever Medicines * Telephone Encounter - John Wynne - 08/17/2022 4:35 PM EDT Symptom: Sinus Symptoms Outcome: Schedule an urgent appointment (within 1 hour) or talk to a nurse or provider soon Reason: Severe headache The caller accepted this outcome Please contact pt at [phone] Indonesian Speaker documented in this encounter Plan of Treatment Upcoming Encounters Date Type Department Care Team (Late st Contact Info) Description 10/07/2024 1:00 PM EDT Clinical Support [address] [address] Zonia Padilla, DAKOTA 12/22/2024 2:30 PM EDT Office Visit [facility] [address] [place], [place] [phone] Amber Gary, OD [address] [place], [place] [phone] documented as of this encounter Visit Diagnoses Not on filedocumented in this encounter Additional Health Concerns Assessment Noted Time PHQ-9 Depression Total Score: 0 07/06/19 23 11:24 AM EST documented as of this encounter Care Teams Director Of Clinical Education Relationship Specialty Start Date End Date Marium Agudelo DO [address] [place], [place] [phone] PCP - General Family Medicine 01/24/19 Iggy Bolanos, DAKOTA [address] [place] [address] SpoolerMedical Assembly 02/20/24 06/04/24 documented as of this encounter
--- OUTSIDE RECORDS SUMMARY | 2024-09-10 16:09 | XMS_ITS | Encounter Summary ---
Author Organization [employer] Address [address] [facility] 7t [place] [address] Care Team Providers Care Recreational Counselor Name Role Phone Marium Agudelo DO Primary Care Provider + [phone] Iggy Bolanos RN Unavailable [phone] Reason for Visit * Reason Comments Med Refill Encounter Details Date Type Department Care Team ([facility] st Contact Info) Description 04/01/2023 Refill [facility] [address] [place], [place] [phone] Marium Agudelo DO [address] [place] [address] Social History Tobacco Use Types Packs/Day Years [...] Description 10/07/2024 1:00 PM EDT Clinical Support [facility] [address] [place] [address] Zonia Padilla RN 12/22/2024 2:30 PM EDT Office Visit [facility] [address] [place], [place] [phone] Abdirahman, Amber, OD [address] [place] [address] documented as of this encounter Visit Diagnoses Not on filedocumented in this encounter Additional Health Concerns Assessment Noted Time PHQ-9 Depression Total Score: 0 07/06/19 23 11:24 AM EST documented as of this encounter Care Teams Recreational Counselor Relationship Specialty Start Date End Date Marium Agudelo DO [address] [place] [address] PCP - General Family Medicine 01/24/19 Iggy Bolanos, DAKOTA [address] [place] [address] Director Regulatory AffairsRelationship Advisor 02/20/24 06/04/24 documented as of this encounter
[2024-09-10 16:49] LABS: Anion Gap 10 (12-20); Blood Urea Nitrogen 14 mg/dL (9-16); Calcium 9.7 mg/dL (8.4-10.2); Carbon Dioxide 24 mmol/L (22-29); Chloride 99 mmol/L (96-108); Estimated Glomerular Filt Rate 39; Glucose Random 183 mg/dL (60-115); Potassium 4.1 mmol/L (3.3-5.1); Sodium 129 mmol/L (135-145)
== END 2024-09-10 15:11 | disposition home or self-care (01) ==
LOC: HO.HHCL 15:10
PROVIDERS: Visit Provider Internal Medicine
DX: E87.1 Hypo-osmolality and hyponatremia (principal)
CPT/HCPCS: 36415; 80048

== ENCOUNTER 2024-10-02 13:54 | Outpatient (REF) | payer MEDICAID, SELFPAY ==
--- OUTSIDE RECORDS SUMMARY | 2024-10-02 14:07 | XMS_ITS | Encounter Summary ---
Author Organization [facility] Address [address] [place] [address] Phone Care Team Providers Care Psych Np Name Role Phone Marium Agudelo DO Primary Care Provider Unava ilable Encounter Details Date Type Department Care Team (Late Contact Info) Description 11/03/2022 Documentation Only [facility] [address] [place] [address] Johan Giron MD [address] [place] [address] Social History Tobacco Use Types [...] Care Team (Late Contact Info) Description 10/07/2024 4:00 PM EDT Office Visit [facility] [address] [place] [address] Johan Giron MD [address] [place] [address] documented as of this encounter Visit Diagnoses Not on filedocumented in this encounter Care Teams Psych Np Relationship Specialty Start Date End Date Marium Agudelo DO PCP - General Family Medicine 02/04/20 documented as of this encounter
[2024-10-02 16:20] LABS: Anion Gap 10 (12-20); Blood Urea Nitrogen 20 mg/dL (9-16); Calcium 9.4 mg/dL (8.4-10.2); Carbon Dioxide 25 mmol/L (22-29); Chloride 96 mmol/L (96-108); Estimated Glomerular Filt Rate 40; Glucose Random 135 mg/dL (60-115); Potassium 4.7 mmol/L (3.3-5.1); Sodium 126 mmol/L (135-145)
== END 2024-10-02 13:55 | disposition home or self-care (01) ==
LOC: HO.HHCL 13:54
PROVIDERS: Visit Provider Internal Medicine
DX: E87.1 Hypo-osmolality and hyponatremia (principal)
CPT/HCPCS: 36415; 80048

== ENCOUNTER 2024-12-18 13:25 | Outpatient (AMB) | payer MEDICAID, SELFPAY ==
[2024-12-18 13:28] VITALS: BP 136/64; PULSE 70; O2SAT 99; BMI 30.5
--- NOTE | 2024-12-18 13:28 | MHC.OFFVIS ---
Vital Signs 12/18/24 13:28 Height 4 ft 9 in Weight 141 lb BMI 30.5 BP 136/64 Blood Pressure Location Rt brachial Position Sitting Pulse 70 Pulse Source Pulse Oximeter Pulse Oximetry (%) 99 Oxygen Delivery Method Room Air Intake Visit Reasons: COPD Design Drafter Required: Yes Design Drafter Name: Marium Jf Aleman Allergies No Known Allergies (No Known Allergies*) Allergy (Verified 06/17/24 13:54) HPI HPI COPD: Details: 59-year-old lady, active 35 pack year smoker, followed for COPD and pulmonary nodules. Patient was switched by her pharmacy from Anoro to Breo with suboptimal control, however she also has difficulties using powder inhalers. She denies recent exacerbations. 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 kidney disease, with long-term current use of insulin Hyperlipidemia Hypertension COPD (chronic obstructive pulmonary disease) History of tuberculosis (~1992) Multiple pulmonary nodules Surgical History (Updated 09/17/23 @ 14:00 by Dylan Small MD) H/O colonoscopy History of right breast biopsy (~2004) History of shoulder surgery (~2005) History of foot surgery (~2005) History of hand surgery (~2003) History of carpal tunnel surgery of right wrist (~2002) History of elbow surgery (~2010) History of surgery on left wrist (~2010) History of surgery on right wrist (~2011) Family History Brother Family history of premature coronary artery disease Father Renal disease Diabetes mellitus Mother Diabetes mellitus Maternal Grandmother Bladder cancer Social History (Updated 06/17/24 @ 13:52 by Marium Liu Miguel) Household Members: Children Housing: Apartment Are you a primary health care / medical job titles to a significant other at home: No Patient Tobacco Use Status: Current everyday Tobacco user Tobacco use type: Cigarette Cigarettes Per Day: 10 Years Smoked: 35, Started around age 18. 2PPD service: No Current occupational status: disabled Review of Systems Const Denies daytime sleepiness, Denies excessive sweating, Denies fatigue, Denies fever(s), Denies lethargy, Denies malaise, Denies night sweats, Denies snoring and Denies weight loss Eyes Denies blurry vision and Denies itchy eyes ENT Denies nasal congestion, Denies post nasal drip, Denies sinus pain, Denies sinus pressure and Denies other ( Thrush) Card Denies chest pain, Denies pedal edema, Denies dyspnea, Denies orthopnea and Denies paroxysmal nocturnal dyspnea Resp Denies cough, Denies hemoptysis, Denies excessive phlegm production, Denies dyspnea, Denies snoring and Denies wheezing GI Denies abdominal pain and Denies heartburn Musc Denies myalgias, Denies arthralgias and Denies joint swelling Skin/Breast Denies rash Neuro Denies memory loss and Denies seizure-like activity Psych Denies abnormal sleep pattern, Denies anxiety and Denies memory loss Endo Denies excessive sweating, Denies fatigue and Denies heat intolerance Everardo/Lymph Denies easy bruising Aller/Immun Denies itchy eyes, Denies seasonal rhinorrhea and Denies wheezing Physical Exam Vital Signs: Last Vital Signs Pulse 70 12/18/24 13:28 BP 136/64 12/18/24 13:28 Pulse Ox 99 12/18/24 13:28 Oxygen Delivery Method Room Air 12/18/24 13:28 BMI result Body Mass Index 30.5 Const General: no acute distress and alert Nutritional Appearance: not obese Orientation/consciousness: Other orientation findings ( oriented) HEENT Head: Yes atraumatic Eyes General: appearance normal, both eyes and all related structures Sclerae: sclerae normal EOM: EOMs intact bilaterally Neck Neck: Yes supple Lymphatic: no lymphadenopathy noted Resp Effort & Inspection: normal respiratory effort and no use of accessory muscles Auscultation: clear to auscultation bilaterally Cardio Rate: regular rate Rhythm: regular rhythm Heart sounds: no gallops, no murmurs and no rubs Skin General skin exam: other ( warm) Extrem General: No clubbing, No cyanosis and No edema Assessment & Plan Assessment & Plan (1) COPD (chronic obstructive pulmonary disease): Code(s): J44.9 - Chronic obstructive pulmonary disease, unspecified Category: Medical Plan: Poor tolerance of powder inhalers, will switch to Stiolto. Continue albuterol MDI. (2) Nicotine dependence, cigarettes, uncomplicated: Comment: (onset 21, x 38yrs, 20+PYH) Code(s): F17.210 - Nicotine dependence, cigarettes, uncomplicated Category: Medical Plan: Results of lung cancer screening CT chest reviewed, no worrisome nodules, continue with yearly screening, next in June of 2025. Medications: New tiotropium-olodaterol 2.5-2.5 mcg/actuation (Stiolto Respimat) 2 puffs inhalation DAILY 4 grams 6RF Coding Level of Care Code Est Pt Level 4 (49991) Diagnoses COPD (chronic obstructive pulmonary disease) J44.9 Nicotine dependence, cigarettes, uncomplicated F17.210
--- OUTSIDE RECORDS SUMMARY | 2024-12-18 14:17 | XMS_ITS | Clinical Summary ---
Author Organization 175 [facility] Address 175 [place] [address] Phone Care Team Providers Care Automotive Design Drafter Name Role Phone Cyndee Agudelo DO Primary Care Provider +1- [phone] Allergies No known active allergies Medications blood [...] Chronic pain 12/11/2016 Constipation 12/11/2016 Diabetes mellitus ([facility] V24, [facility] V28) 11/2016 Hand arthritis 10/06/2016 Type 2 diabetes mellitus wit h neurologic complication ([facility] V24, [facility] V28) 10/06/2016 Anxiety 02/21/2016 Depression 02/21/2016 Vision problems 06/12/2014 Asthma 05/25/2014 Tendinopathy 05/25/2014 Overview (05/26/2024): Both hands, wrists and shoulders, seeing [facility], Dr. Newell, [address] [place] [address]. - numerous hand surgeries: carpal tunnel releases, multiple trigger finger releases, infection and tendon reconstruction. Chronic kidney disease 05/22/2014 DM type 1 (diabetes mellitus , type 1) ([facility] V24, [place] [id number]) 05/22/2014 Female pelvic pain 05/22/2014 Overview (05/26/2024): [address] [facility]: Normal sonographic appearance of the uterus and right ovary. The left ovary was not visualized. Hypertension 05/22/2014 Immunizations Name Administration Dates Next Due Moderna SARS-CoV-2 COVID-19, mRNA, LNP-S, preservative free 08/26/2020,07/23/2020 Pfizer SARS-CoV-2 COVID-19, mRNA, LNP-S, preservative free 08/03/2021 Medical History Medical History Date Comments HTN (hypertension) DX:HTN (hyper tension) DM (diabetes mellitus) ([facility] V24, [facility] V28) DX:DM (diabetes mellitus) (H CC) Esophageal reflux DX:Esophageal reflux Anxiety state DX:Anxiety state Hyperlipidemia DX:Hyperlipidemi a Diabetic neuropathy ([facility] V24, [facility] V28) DX:Diabetic neuropathy ([facility]) Depressive disorder DX:Depressiv e disorder Social History [...] Care Team (Late st Contact Info) Description 01/06/2025 2:45 PM EDT Office Visit Orthopedic Surgery [facility] 175 [facility] [address] [place] [address] Mary Newell MD 175 [facility] [address] [place] [address] 01/19/2025 2:30 PM EDT Office Visit Orthopedic Surgery - [place] [address] [phone] Ish Lovell, DPM [address] [address] Health Maintenance Due Date Last Done Comments Diabetes: Annual Foot Exam 1975 Diabetes: Annual Retina Eye Exam 1975 Zoster Vaccines (1 of 2) 01/13/1984 Cervical Cancer Screening: Pap Smear 1986 Hepatitis B Vaccines (2 of 3 - 19+ 3-dose series) 06/03/2015 05/06/2015 Colorectal Cancer Screening: Colonoscopy 04/16/2022 Social Influencers of Health Screening 04/16/2022 Diabetes: Annual Urine Albumin-Creatinine Ratio (uACR) 04/21/2022 Breast Cancer Screening 09/02/2023 09/01/2021 Diabetes: Annual GFR (Glomerular Filtration Rate) 01/31/2024 01/30/2023 Hypertension/CHF/CAD Annual BMP Blood Test 01/31/2024 01/30/2023 Depression Screening 05/07/2024 COVID-19 Vaccine (7 - Mixed Product risk season) 2024 03/20/2024, 07/18/2023, 03/23/2022, Additional history exists Diabetes: Blood Sugar Control Test (HGBA1C) 12/16/2024 06/18/2024, 06/18/2024, 11/30/2023, Additional history exists Influenza Vaccine (#1) 2025 , 02/07/2023, 02/27/2022, Additional history exists Cholesterol Screening (Lipid Panel) 11/22/2028 11/23/2023, 04/10/2022 DTaP,Tdap,and Td Vaccines (3 - Td or Tdap) 08/13/2031 08/12/2021, 03/04/2015 RSV Immunization Adult Patients (1 - 1-dose 75+ series) 01/13/2040 HIV Screening Completed 07/18/2023, 04/10/2022 Hepatitis C Screening Completed 07/18/2023, 022 Pneumococcal Vaccine: 50+ Years Completed 07/18/2023, 08/12/2021, 03/18/2015 HIB Vaccines Aged Out No longer eligi [...] Procedure Name Priority Date/Time Associated Diagnosis Comments ANNUAL BMP BLOOD TEST Routine 01/30/2023 HEPATITIS C SCREENING Routine 04/10/2022 HIV SCREENING Routine 04/10/2022 LIPID PANEL Routine 04/10/2022 GIANFRANCO SCREENING DIGITAL Routine 09/01/2021 4:10 PM EDT Encounter for screening mammogram for malignant neoplasm of breast from Last 3 Months or Most Recently Relevant to Health Maintenance Results * Annual BMP Blood Test (01/30/2023) Annual BMP Blood Test abstracted Historical Provider HEALTH MAINTENANCE Final Result * HIV Screening (04/10/2022) Pathologist [facility] HIV Screening abstracted Historical Provider HEALTH MAINTENANCE Final Result * Hepatitis C Screening (04/10/2022) Pathologist [facility] Hepatitis C Screening abstracted Historical Provider HEALTH MAINTENANCE Final Result * Lipid panel (04/10/2022) LDL/HDL Ratio 0 0 - 0 Comment:no interpretation Triglycerides 0 0 - 0 mg/dL Comment:no interpretation Cholesterol 0 0 - 0 mg/dL Comment:no interpretation HDL 0 0 - 0 mg/dL Comment:no interpretation LDL Cholesterol 0 0 - 0 mg/dL Comment:no interpretation Blood Venous blood specimen / Unknown Historical Provider LAB BLOOD ORDERABLES Sarah l Result * [facility] SCREENING DIGITAL (09/01/2021 4:10 PM EDT) Anatomical Region Laterality Modality Mammography 09/01/2021 2:23 PM EDT Narrative 09/01/2021 4:10 PM EDT [facility] Diagnostic Imaging Department [address] [place], [place] [phone] Patient: MICHAEL ARREOLA /Age/Sex: 1965 - 56 - F Unit#: [id number] Location/Status: [facility] Mnemonic[facility] Ordering Physician: CYNDEE AGUDELO DO Gianfranco Screening Digital - 09/01/21 - 1508 INDICATION: SCREENING COMPARISON: [facility] mammograms dating back to 04/05/2010 TECHNIQUE: CC and MLO views of the breasts were obtained, using full field digital mammography with 3D tomosynthesis views in the MLO projection. Computer aided detection with the MD Revolution[employer] Swrve 7.2-H was employed. FINDINGS: The breasts contain heterogeneously dense tissues, which may lower sensitivity of mammography in this patient. No suspicious masses, suspicious microcalcifications, or areas of architectural distortion are identified. There are no secondary signs of breast malignancy. Benign-appearing breast calcifications are present bilaterally. IMPRESSION: No specific mammographic evidence of breast malignancy. Lack of an imaging correlate should not deter or delay biopsy of a clinically significant palpable finding. BI-RADS - Category 2 - Benign finding 3342F, 7025F Annual screening mammography is recommended. Patient entered into a reminder system with a target date for the next mammogram. [id number]) , [id number] Dictating Physician: MAIA OMALLEY MD Electronically Signed by: MAIA OMALLEY MD Dic Date/Time: 09/01/21 1608 Sign date/Time: 09/01/21 1610 Procedure Note Maia Omalley MD - 04/26/2022 [facility] Diagnostic Imaging Department [address] [place] [address] Patient: MICHAEL ARREOLA D.O.B./Age/Sex: 1965 - 56 - F Unit#: [id number] Location/Status: [facility] CLI Mnemonic/Ordering Site: [facility] Ordering Physician: CYNDEE AGUDELO DO Gianfranco Screening Digital - 09/01/21 - 1508 INDICATION: SCREENING COMPARISON: [facility] mammograms dating back to 04/05/2010 TECHNIQUE: CC and MLO views of the breasts were obtained, using full field digital mammography with 3D tomosynthesis views in the MLO projection. Computer aided detection with the [employer] 7.2-H was employed. FINDINGS: The breasts contain [...] a target date for the next mammogram. [id number] / [id number]) , [id number] Dictating Physician: MAIA OMALLEY MD Electronically Signed by: MAIA OMALLEY MD Dic Date/Time: 09/01/21 1608 Sign date/Time: 09/01/21 1610 Cyndee Agudelo DO IMG BI PROCEDURES Final Re sult from Last 3 Months or Most Recently Relevant to Health Maintenance Insurance MEDICAID - [place] Care Teams Automotive Design Drafter Relationship Specialty Start Date End Date Cyndee Agudelo DO [address] [place] [address] PCP - General Family Medicine 05/08/24
--- OUTSIDE RECORDS SUMMARY | 2024-12-18 14:17 | XMS_ITS | Encounter Summary ---
Author Organization [employer] Address [address] [facility] 7t [place] [address] Care Team Providers Care Development System Efficiency Manager Name Role Phone Marium Agudelo DO Primary Care Provider + [phone] Reason for Visit * Reason Comments Med Refill Encounter Details Date Type Department Care Team ([facility] Contact Info) Description 09/29/[address] [facility] MEDICINE [address] [place], [place] [phone] Marium Agudelo DO 230 [place], [place] [phone] Essential hypertension Social History Tobacco Use Types [...] Answer Date Recorded Patient Health Questionnaire-9 Score 6 09/22/2024 Patient Health Questionnaire-9 Score 6 09/22/2024 Last PHQ-9: Questionnaire Data Not on file 0 09/22/2024 Housing Stability Answer Date Recorded What is [...] Answer Date Recorded Patient Health Questionnaire-2 Score 2 09/22/2024 Internet Access Answer Date Recorded Internet Access [...] Care Team (Late st Contact Info) Description 12/22/2024 2:30 PM EDT Office Visit [facility] OPTOMETRY [address] [place] [address] Abdirahman, Amber, OD [address] [place] [address] 01/08/2025 1:30 PM EDT Clinical [address] [facility] MEDICINE [address] [place] [address] Zonia Padilla, [place] documented as of this encounter Visit Diagnoses Diagnosis Essential hypertension Unspecified essential hypertension documented in this encounter Additional Health Concerns Assessment Noted Time PHQ-9 Depression Total Score: 6 09/23/19 25 4:27 PM EDT documented as of this encounter Care Teams Development System Efficiency Manager Relationship Specialty Start Date End Date Marium Agudelo DO [address] [place] [address] PCP - General Family Medicine 01/24/19 documented as of this encounter
--- OUTSIDE RECORDS SUMMARY | 2024-12-18 14:17 | XMS_ITS | Encounter Summary ---
Author Organization [facility], Address [address] [place] [address] Phone Care Team Providers Care Pharmacist Hospital Name Role Phone Marium Agudelo DO Primary Care Provider Unava ilable Encounter Details Date Type Department Care Team (Late st Contact Info) Description 11/03/2022 Documentation Only [facility], [address] [place] [phone] Johan Giron MD [address] [place] [phone] Social History Tobacco Use Types Packs/Day Years [...] as of this encounter Plan of Treatment Not on file documented as of this encounter Visit Diagnoses Not on filedocumented in this encounter Care Teams Pharmacist Hospital Relationship Specialty Start Date End Date Marium Agudelo DO PCP - General Family Medicine 02/04/20 documented as of this encounter
== END 2024-12-18 13:45 | disposition home or self-care (01) ==
LOC: HO.HPS 13:26
PROVIDERS: PCP Family Medicine; Visit Provider Internal Medicine Pulmonary Disease
DX: J44.9 Chronic obstructive pulmonary disease, unspecified (principal); F17.210 Nicotine dependence, cigarettes, uncomplicated
CPT/HCPCS: 99214

== ENCOUNTER → 2024-12-18 13:25 | Outpatient (BNVA) | payer MEDICAID, SELFPAY | PROVIDERS: PCP Family Medicine; Visit Provider Internal Medicine Pulmonary Disease | DX: J44.9 Chronic obstructive pulmonary disease, unspecified (principal); F17.210 Nicotine dependence, cigarettes, uncomplicated; R91.1 Solitary pulmonary nodule | CPT/HCPCS: 99212 ==

== ENCOUNTER 2024-12-22 16:06 | Outpatient (REF) | payer MEDICAID, SELFPAY ==
--- OUTSIDE RECORDS SUMMARY | 2024-12-22 16:18 | XMS_ITS | Encounter Summary ---
Author Organization [employer] Address 75 [facility] 7t [place] [address] Care Team Providers Care Formula Technician Name Role Phone Marium Agudelo DO Primary Care Provider + [phone] Reason for Visit * Reason Comments Med Refill Encounter Details Date Type Department Care Team ([facility] Contact Info) Description 09/29/2024 Refill [facility] MEDICINE 230 [place], [place] [phone] Marium Agudelo DO 230 [place], [place] [phone] Essential hypertension Social History Tobacco Use Types [...] Care Team (Late st Contact Info) Description 01/08/2025 1:30 PM EDT Clinical Support [facility] MEDICINE [address] [place] [address] Zonia Padilla RN documented as of this encounter Visit Diagnoses Diagnosis Essential hypertension Unspecified essential hypertension documented in this encounter Additional Health Concerns Assessment Noted Time PHQ-9 Depression Total Score: 6 09/23/19 25 4:27 PM EDT documented as of this encounter Care Teams Formula Technician Relationship Specialty Start Date End Date Marium Agudelo DO [address] [place] [address] PCP - General Family Medicine 01/24/19 documented as of this encounter
--- OUTSIDE RECORDS SUMMARY | 2024-12-22 16:18 | XMS_ITS | Encounter Summary ---
Author Organization [facility], Address [address] [place] [address] Phone Care Team Providers Care Writer Name Role Phone Marium Agudelo DO Primary Care Provider Unava ilable Encounter Details Date Type Department Care Team (Late st Contact Info) Description 11/03/2022 Documentation Only [facility], [address] [place] [place] [phone] Johan Giron MD [address] [place] [phone] Social History Tobacco Use Types Packs/Day Years [...] on filedocumented in this encounter Care Teams Writer Relationship Specialty Start Date End Date Marium Agudelo DO PCP - General Family Medicine 02/04/20 documented as of this encounter
--- OUTSIDE RECORDS SUMMARY | 2024-12-22 16:18 | XMS_ITS | Clinical Summary ---
Author Organization 175 [facility] Address 175 [place] [address] Phone Care Team Providers Care Brownfield Redevelopment Site Manager Name Role Phone Cyndee Agudelo DO Primary Care Provider [phone]- [phone] Allergies No known active allergies Medications blood [...] Chronic pain 12/11/2016 Constipation 12/11/2016 Diabetes mellitus ([facility] V24, [facility] V28) 11/2016 Hand arthritis 10/06/2016 Type 2 diabetes mellitus wit h neurologic complication ([facility] V24, [facility] V28) 10/06/2016 Anxiety 02/21/2016 Depression 02/21/2016 Vision problems 06/12/2014 Asthma 05/25/2014 Tendinopathy 05/25/2014 Overview (05/26/2024): Both hands, wrists and shoulders, seeing [facility], Dr. Newell, [address] [place] [address]. - numerous hand surgeries: carpal tunnel releases, multiple trigger finger releases, infection and tendon reconstruction. Chronic kidney disease 05/22/2014 DM type 1 (diabetes mellitus , type 1) ([facility] V24, [place] [id number]) 05/22/2014 Female pelvic pain 05/22/2014 Overview (05/26/2024): [address] [facility]: Normal sonographic appearance of the uterus and right ovary. The left ovary was not visualized. Hypertension 05/22/2014 Immunizations Name Administration Dates Next Due Moderna SARS-CoV-2 COVID-19, mRNA, LNP-S, preservative free 08/26/2020,07/23/2020 Pfizer SARS-CoV-2 COVID-19, mRNA, LNP-S, preservative free 08/03/2021 Medical History Medical History Date Comments HTN (hypertension) DX:HTN (hyper tension) DM (diabetes mellitus) ([facility] V24, [facility] V28) DX:DM (diabetes mellitus) (H CC) Esophageal reflux DX:Esophageal reflux Anxiety state DX:Anxiety state Hyperlipidemia DX:Hyperlipidemi a Diabetic neuropathy ([facility] V24, [facility] V28) DX:Diabetic neuropathy ([facility]) Depressive disorder DX:Depressiv e disorder Social History [...] 2:45 PM EDT Office Visit Orthopedic Surgery [facility] 175 [facility] [address] [place] [address] Mary Newell MD 175 [facility] [address] [place] [address] 01/19/2025 2:30 PM EDT Office Visit Orthopedic Surgery - [place] [address] [phone] Ish Lovell, DPM [address] [address] Health Maintenance Due Date Last Done Comments [...] Final Result * HIV Screening (04/10/2022) Pathologist [facility] HIV Screening abstracted Historical Provider HEALTH MAINTENANCE Final Result * Hepatitis C Screening (04/10/2022) Pathologist [facility] Hepatitis C Screening abstracted Historical Provider [...] LAB BLOOD ORDERABLES Sarah l Result * [facility] SCREENING DIGITAL (09/01/2021 4:10 PM EDT) Anatomical Region Laterality Modality Mammography 09/01/2021 2:23 PM EDT Narrative 09/01/2021 4:10 PM EDT [facility] Diagnostic Imaging Department [address] [place], [place] [id number] Patient: MICHAEL ARREOLA /Age/Sex: 1965 - 56 - F Unit#: [id number] [facility] Ordering Physician: CYNDEE AGUDELO DO Gianfranco Screening Digital - 09/01/21 - 1508 INDICATION: SCREENING COMPARISON: [facility] mammograms dating back to 04/05/2010 TECHNIQUE: CC and MLO views of the breasts were obtained, using full field digital mammography with 3D tomosynthesis views in the MLO projection. Computer aided detection with the [employer]ag[employer] 7.2-H was employed. FINDINGS: The breasts contain [...] target date for the next mammogram. [id number]) , [id number] Dictating Physician: MAIA OMALLEY MD Electronically Signed by: MAIA OMALLEY MD Dic Date/Time: 09/01/21 1608 Sign date/Time: 09/01/21 1610 Procedure Note Maia Omalley MD - 04/26/2022 [facility] Diagnostic Imaging Department [address] [place] [address] Patient: MICHAEL ARREOLA D.O.B./Age/Sex: 1965 - 56 - F Unit#: [id number] Location/Status: [facility] CLI Mnemonic/Ordering Site: [facility] Ordering Physician: CYNDEE AGUDELO DO Gianfranco Screening Digital - 09/01/21 - 1508 INDICATION: SCREENING COMPARISON: [facility] mammograms dating back to 04/05/2010 TECHNIQUE: CC and MLO views of the breasts were obtained, using full field digital mammography with 3D tomosynthesis views in the MLO projection. Computer aided detection with the [employer] 7.2-H was employed. FINDINGS: The breasts contain [...] a target date for the next mammogram. [id number] / [id number]) , [id number] Dictating Physician: MAIA OMALLEY MD Electronically Signed by: MAIA OMALLEY MD Dic Date/Time: 09/01/21 1608 Sign date/Time: 09/01/21 1610 Cyndee Agudelo DO IMG BI PROCEDURES Final Re sult from Last 3 Months or Most Recently Relevant to Health Maintenance Insurance [place] - [place] Care Teams [employer]evelopment Site Manager Relationship Specialty Start Date End Date Cyndee Agudelo DO [address] [place] [address] PCP - General Family Medicine 05/08/24
[2024-12-22 18:59] LABS: Free T4 (Free Thyroxine) 0.88 ng/dL (0.71-1.85); Thyroid Stimulating Hormone 2.36 uIU/mL (0.32-4.0)
[2024-12-23 21:19] LABS: Thyroglobulin Antibodies <1 IU/mL (< or = 1)
[2024-12-25 18:38] LABS: Acetylcholine Recept. Blocking <15 (<15)
== END 2024-12-22 16:07 | disposition home or self-care (01) ==
LOC: HO.HHCL 16:06
PROVIDERS: PCP Family Medicine; Visit Provider Optometrist
DX: H02.403 Unspecified ptosis of bilateral eyelids (principal)
CPT/HCPCS: 36415; 84439; 84443; 84480; 86042; 86376; 86800

== ENCOUNTER 2025-03-10 12:00 | Outpatient (REF) | payer MEDICAID, SELFPAY ==
--- OUTSIDE RECORDS SUMMARY | 2025-03-10 12:00 | XMS_ITS | Encounter Summary ---
Author Organization [employer] Address [address] [place] [address] 7 [place] [address] Care Team Providers Care Conference And Event Organiser Name Role Phone Marium Agudelo DO Primary Care Provider + [phone] Reason for Referral * Consultation (Urgent) - Closed Specialty Diagnoses / Procedures Referred By Preethi ashley Referred To Contact Oral Surgery Diagnoses Gum lesion Marium Agudelo DO [address] [place] [address] Phone: tel: fax: Referral ID Status Reason Start Date Expiration Date V isits Requested Visits Authorized [id number] Closed Specialty Services Required 03/10/2025 03/10/2026 1 1 Encounter Details Date Type Department Care Team (Late st Contact Info) Description 03/10/2025 12:00 PM EST Office Visit [facility] [address] [place] [address] [phone] Marium Agudelo DO [address] [place] [address] Gum lesion (Primary Dx) Social History Tobacco Use Types Packs/Day Years [...] Answer Date Recorded Patient Health Questionnaire-9 Score 2 02/23/2025 Patient Health Questionnaire-9 Score 2 02/23/2025 Last PHQ-9: Questionnaire Data Not on file 1 Housing Stability Answer Date Recorded What is [...] got money to buy more: Never True 02/23/2025 Within the past 12 months,th e food [...] shut off services in your home? No 02/23/2025 Depression Answer Date Recorded Patient Health Questionnaire-2 Score 0 02/23/2025 Internet Access Answer Date Recorded Internet Access Q1 Yes 03/06/2024 Internet Access Q2 Not on file 03/06/2024 Comments No Sex and Gender Information Value Date Recorded Sex Assigned at Female 03/06/2022 10:17 AM EDT Legal Sex Female 10:17 AM EDT Gender Identity Female 03/06/2022 10:17 AM EDT Sexual Orientation Straight 03/06/2022 10 :17 AM EDT documented as of this encounter Last Filed Vital Signs Vital Sign Reading Time Taken Comments Blood Pressure 132/70 03/10/2025 11:55 AM EST Pulse 67 03/10/2025 11:55 AM EST Temperature 36.9 C (98.4 F) 03/10/2025 11:55 AM EST Respiratory Rate 21 03/10/2025 11:55 AM EST Oxygen Saturation 97% 03/10/2025 11:55 AM EST Inhaled Oxygen Concentration - - Weight 64 kg (141 lb) 03/10/2025 11:55 AM EST Height 144.8 cm (4' 9 ) 03/10/2025 11:55 AM EST Body Mass Index 30.51 03/10/2025 11:55 AM EST documented in this encounter Progress Notes * Marium Agudelo, DO - 03/10/2025 12:00 PM EST SUBJECTIVE Tracy Arreola is a 60 y.o. female who presents for Sick Visit. HPI She called yesterday c/o sores on her gums and on the inside of her cheek for a week that look different that her her history of herpes and wanted to get them checked. She says that her symptoms started over a week ago and are starting to resolve. She was having bad burning pain over the areas which has gotten better. She still has some lesions on her lower gums and upper gums. She feels like they were ulcers. She hasn't been able to wear her dentures because of the pain. She says that she had some leftover dental mouthwash that she used which has helped. She used to get medicine for herpes but hasn't been getting it. She denies any throat pain. No trouble swallowing. No lip lesions. No fevers. Review of Systems Constitutional: Negative for activity change, appetite change, chills, fever and unexpected weight change. Respiratory: Negative for cough and shortness of breath. Cardiovascular: Negative for chest pain, palpitations and leg swelling. Gastrointestinal: Negative for abdominal pain, diarrhea, nausea and vomiting. Neurological: Negative for weakness and headaches. Patient Active Problem List Diagnosis Chronic constipation Chronic pain syndrome Degenerative disc disease, lumbar History of COVID-19 Chronic gastroesophageal reflux disease Essential hypertension Anxiety Carpal tunnel syndrome on both sides Diabetic neuropathy (HCC) Glaucoma Hyperlipidemia Presence of insulin pump Stage 3 chronic kidney disease (CMS/HCC) (HCC) Urinary incontinence Tubular adenoma Degenerative disc disease, cervical Diabetic nephropathy (HCC) Type 1 diabetes (HCC) Peripheral arterial disease Chronic nasal congestion Abnormal chest CT Healthcare maintenance Tobacco dependence Chronic low back pain Major depression, recurrent, chronic (CMS/HCC) nursing home current use of opiate analgesic Pulmonary nodules Coronary artery disease Hyponatremia No Known Allergies OBJECTIVE Visit Vitals BP 132/70 (BP Location: Left arm, Patient Position: Sitting, BP Cuff Size: Adult) Pulse 67 Temp 98.4 ??F (36.9 ??C) (Oral) Resp 21 Ht 4' 9 (1.448 m) Wt 141 lb (64 kg) SpO2 97% BMI 30.51 kg/m?? OB Status Postmenopausal Smoking Status Every Day BSA 1.6 m?? Physical Exam Constitutional: General: She is not in acute distress. Appearance: Normal appearance. HENT: Right Ear: Tympanic membrane, ear canal and external ear normal. Left Ear: Tympanic membrane, ear canal and external ear normal. Nose: Nose normal. Mouth/Throat: Dentition: Gum lesions present. No gingival swelling. Pharynx: No oropharyngeal exudate or posterior oropharyngeal erythema. Comments: Irregular hyperpigmentation of lower gums with two white papules; no blisters or ulcerations Cardiovascular: Rate and Rhythm: Normal rate and regular rhythm. Heart sounds: Normal heart sounds. No murmur heard. Pulmonary: Effort: Pulmonary effort is normal. Breath sounds: Normal breath sounds. No wheezing or rhonchi. Musculoskeletal: Cervical back: Neck supple. No tenderness. Lymphadenopathy: Cervical: No cervical adenopathy. Neurological: General: No focal deficit present. Mental Status: She is alert and oriented to person, place, and time. Cranial Nerves: No cranial nerve deficit. Motor: No weakness. Gait: Gait normal. Psychiatric: Mood and Affect: Mood normal. Assessment/Plan Diagnoses and all orders for this visit: Gum lesion With hyperpigmentation of gingiva, unlikely herpes, symptoms improving -send HSV culture -trial topical lidocaine gel for symptomatic relief -referred to oral surgeon for evaluation -advised rtc if symptoms change or worsen, she agrees with plans - Herpes Simplex Virus Culture with Reflex Typing; Future - Referral to Oral Maxillofacial Surgery; Future - benzocaine (Orajel) 10 % mucosal gel; Use in the mouth or throat if needed in the morning, at noon, and at bedtime for mucositis. - valACYclovir (Valtrex) 500 MG tablet; Take 2 tablets (1,000 mg) by mouth 2 times daily for 1 day.Start FREDRICK after symptom onset F/U with me as scheduled or sooner prn Current Outpatient Medications: Acetaminophen Extra Strength 500 MG tablet, Take 500 mg by mouth every 12 (twelve) hours if needed., Disp: , Rfl: amLODIPine (Norvasc) 10 MG tablet, Take 1 tablet by mouth Once per day., Disp: , Rfl: Anoro Ellipta 62.5-25 MCG/ACT aerosol powder , , Disp: , Rfl: aspirin (Aspirin Low Dose) 81 MG EC tablet, TAKE 1 TABLET BY MOUTH EVERY DAY, Disp: 90 tablet, Rfl:1 atorvastatin (Lipitor) 40 MG tablet, Take 1 tablet by mouth Once per day., Disp: , Rfl: benzocaine (Orajel) 10 % mucosal gel, Use in the mouth or throat if needed in the morning, at noon,and at bedtime for mucositis., Disp: 7 g, Rfl: 0 Blood Glucose Monitoring Suppl (FreeStyle Lite) w/Device kit, USE TO TEST BLOOD GLUCOSE DAILY, Disp: 1 kit, Rfl: 0 Blood Pressure Monitoring (Omron 3 Series BP Monitor) device, , Disp: , Rfl: Calcium Polycarbophil (fiber) 625 MG tablet, Take 1 tablet (625 mg) by mouth 2 times daily., Disp: 60 tablet, Rfl: 11 cetirizine (ZyrTEC) 10 MG tablet, Take 1 tablet (10 mg) by mouth Once per day., Disp: 90 tablet, Rfl: 3 cholecalciferol VITAMIN D (Vitamin D-3) 50 MCG (2000 UT) capsule, TAKE 1 CAPSULE BY MOUTH EVERY MORNING, Disp: 90 capsule, Rfl: 3 clonazePAM (KlonoPIN) 0.5 MG tablet, Take 1 tablet by mouth Once per day., Disp: , Rfl: clopidogrel (Plavix) 75 MG tablet, Take 1 tablet by mouth Once per day., Disp: , Rfl: Continuous Blood Gluc Sensor (FreeStyle Antonina 2 Sensor) [facility] [place], USE DIRECTED FOR CONTINUOUS GLUCOSE MONITORING DAILY CHANGE EVERY 14 DAYS, Disp: , Rfl: Continuous Blood Gluc Transmit (Dexcom G6 transmitter) [facility] [place], , Disp: , Rfl: Diclofenac Sodium 1 % gel, APPLY 2 GRAMS TOPICALLY IF NEEDED IN THE MORNING AND AT BEDTIME (PAIN).,Disp: 100 g, Rfl: 3 docusate sodium (Colace) 100 MG capsule, Take 1 capsule (100 mg) by mouth 2 times daily., Disp: 60 capsule, Rfl: 11 estradiol (Estrace) 0.1 MG/GM vaginal cream, , Disp: , Rfl: famotidine (Pepcid) 40 MG tablet, TAKE 1 TABLET BY MOUTH EVERY DAY IN THE MORNING, Disp: 90 tablet,Rfl: 1 FeroSul 325 (65 Fe) MG tablet, , Disp: , Rfl: fluticasone (Flonase) 50 MCG/ACT nasal spray, Administer 2 sprays into each nostril Once per day., Disp: 48 g, Rfl: 3 FreeStyle lancets, USE TO CHECK BLOOD GLUCOSE 5 TIMES A DAY, Disp: , Rfl: FREESTYLE LITE test strip, TEST BLOOD SUGAR FOUR TIMES DAILY, Disp: 150 strip, Rfl: 3 gabapentin (Neurontin) 300 MG capsule, TAKE 1 CAPSULE BY MOUTH THREE TIMES A DAY, Disp: 90 capsule,Rfl: 3 Gemtesa 75 MG tablet, Take 1 tablet by mouth Once per day., Disp: , Rfl: glucose-vitamin C 4-6 GM-MG oral gel, chew 2 -4 tablets PO as needed for hypoglycemia, Disp: , Rfl: hydrOXYzine HCl (Atarax) 25 MG tablet, Take 25-50 mg by mouth at bedtime., Disp: , Rfl: Insulin Disposable Pump (Omnipod 5 G6 Pods, Gen 5,) [facility] [place], , Disp: , Rfl: Insulin Lispro 100 UNIT/ML solution, Inject under the skin every 8 (eight) hours., Disp: , Rfl: Lantus SoloStar 100 UNIT/ML pen, Inject 17 Units under the skin at bedtime., Disp: , Rfl: lisinopril 40 MG tablet, Take 1 tablet (40 mg) by mouth in the morning., Disp: 90 tablet, Rfl: 3 magnesium 200 MG tablet, Take 2 tablets by mouth at bedtime., Disp: , Rfl: metoprolol succinate XL (Toprol-XL) 25 MG 24 hr tablet, Take 25 mg by mouth Once per day., Disp: , Rfl: metoprolol succinate XL (Toprol-XL) 50 MG 24 hr tablet, , Disp: , Rfl: naloxone (Narcan) 4 mg/0.1 mL nasal spray, SPRAY 0.1 MILLIMETERS BY INTERNASAL ROUTE INSERT 1 NOSTRIL MAY REPEAT DOSE EVERY 2-3 MINUTES NEEDED ALTERNATING WITH EACH DOSE, Disp: 2 each, Rfl: 0 nicotine (Nicoderm CQ) 21 MG/24HR patch, Place 1 patch on the skin 1 (one) time each day at the same time., Disp: 30 patch, Rfl: 0 nitroglycerin (Nitrostat) 0.4 MG SL tablet, , Disp: , Rfl: omeprazole (PriLOSEC) [address] capsule, , Disp: , Rfl: oxyCODONE-acetaminophen (Percocet) 5-325 MG tablet, Take 1 tablet by mouth every 4 (four) hours if needed for severe pain for up to 28 days., Disp: 140 tablet, Rfl: 0 polyethylene glycol, PEG, 3350 (MiraLax) 17 GM/SCOOP powder, Take 17 g by mouth if needed each day (constipation)., Disp: 527 g, Rfl: 2 sodium chloride ([place] Nasal [place]) 0.65 % nasal spray, Administer 2 sprays into each nostril if needed for congestion., Disp: 30 mL, Rfl: 3 sodium chloride 1 g tablet, Take 1 tablet (1 g) by mouth 3 times daily., Disp: 21 tablet, Rfl: 0 Stiolto Respimat 2.5-2.5 MCG/ACT aerosol solution inhaler, 2 puffs Once per day., Disp: , Rfl: valACYclovir (Valtrex) 500 MG tablet, Take 2 tablets (1,000 mg) by mouth 2 times daily for 1 day. Start FREDRICK after symptom onset, Disp: 4 tablet, Rfl: 2 Ventolin HFA 108 (90 Base) MCG/ACT inhaler, INHALE 2 PUFFS BY MOUTH FOUR TIMES DAILY NEEDED FOR SHORTNESS OF BREATH OR WHEEZING, Disp: , Rfl: zolpidem (Ambien) 10 MG tablet, Take 1 tab at bedtime please wait at least 4 hours after taking theclonazepam to take the med, Disp: , Rfl: documented in this encounter Plan of Treatment Upcoming Encounters Date Type Department Care Team (Late st Contact Info) Description 04/13/2025 1:00 PM EST Clinical Support [facility] [address] [place] [id number] Zonia Padilla, DAK[place] Scheduled Orders Name Type Priority Associated Diagnoses Orde r Schedule Herpes Simplex Virus Culture with Reflex Typing Microbiology Routine Gum lesion Expected: 03/10/2025, Expires: 03/10/2026 Scheduled Referrals Name Type Priority Associated Diagnoses Order Schedule Referral to Oral Maxillofacial Surgery Outpatient Referral Urgent Gum lesion Expected: 03/10/2025 (Approximate), Expires: 03/10/2026 documented as of this encounter Visit Diagnoses Diagnosis Gum lesion- Primary documented in this encounter Additional Health Concerns Assessment Noted Time PHQ-9 Depression Total Score: 2 02/24/20 25 12:22 PM EDT documented as of this encounter Care Teams Conference And Event Organiser Relationship Specialty Start Date End Date Marium Agudelo DO [address] [place] [address] PCP - General Family Medicine 01/24/19 documented as of this encounter
--- OUTSIDE RECORDS SUMMARY | 2025-03-10 18:33 | XMS_ITS | Clinical Summary ---
Author Organization [address] [facility] Address [address] [place] [address] Phone Care Team Providers Care Manager Client Service Name Role Phone Cyndee Agudelo DO Primary Care Provider [phone] Allergies No known active allergies Medications blood [...] Chronic pain 12/11/2016 Constipation 12/11/2016 Diabetes mellitus ([facility] V24, [facility] V28) 11/2016 Hand arthritis 10/06/2016 Type 2 diabetes mellitus wit h neurologic complication ([facility] V24, [facility] V28) 10/06/2016 Anxiety 02/21/2016 Depression 02/21/2016 Vision problems 06/12/2014 Asthma 05/25/2014 Tendinopathy 05/25/2014 Overview (05/26/2024): Both hands, wrists and shoulders, seeing [facility], Dr. Newell, [address] [place] [address]. - numerous hand surgeries: carpal tunnel releases, multiple trigger finger releases, infection and tendon reconstruction. Chronic kidney disease 05/22/2014 DM type 1 (diabetes mellitus , type 1) ([facility] V24, [place] [id number]) 05/22/2014 Female pelvic pain 05/22/2014 Overview (05/26/2024): [address] [facility]: Normal sonographic appearance of the uterus and right ovary. The left ovary was not visualized. Hypertension 05/22/2014 Encounters Date Type Department Care Team Description 03/03/2025 3:00 PM EDT Office Visit Orthopedic Surgery - [address] [address] Ish Lovell, DPM Plantar fascial fibromatosis (Primary Dx); Bilateral foot pain from Last 3 Months Immunizations Immunization Administration Dates Next Due Moderna SARS-CoV-2 COVID-19, mRNA, LNP-S, preservative free 08/26/2020,07/23/2020 Pfizer SARS-CoV-2 COVID-19, mRNA, LNP-S, preservative free 08/03/2021 Medical History Medical History Date Comments HTN (hypertension) DX:HTN (hyper tension) DM (diabetes mellitus) ([facility] V24, [facility] V28) DX:DM (diabetes mellitus) ([facility]) Esophageal reflux DX:Esophageal reflux Anxiety state DX:Anxiety state Hyperlipidemia DX:Hyperlipidemi a Diabetic neuropathy ([facility] V24, [facility] V28) DX:Diabetic neuropathy ([facility]) Depressive disorder DX:Depressiv e disorder Social [...] Care Team (Late st Contact Info) Description 04/06/2025 11:45 AM EST Office Visit Orthopedic Surgery [facility] [address] [facility] [address] [place] [address] Mary Newell MD [address] [place] [phone] 06/03/2025 3:00 PM EST Office Visit Orthopedic Surgery [facility] [address] [facility] [address] [place] [phone] Ish Lovell DPM [address] [place] [address] Health Maintenance Due Date Last Done Comments Colorectal Cancer Screening: Colonoscopy 1965 Diabetes: Annual Foot Exam 1975 Diabetes: Annual Retina Eye Exam 1975 Zoster Vaccines (1 of 2) 01/13/1984 Cervical Cancer Screening: Pap Smear 1986 RSV Immunization Adult Patients (1 - Risk 50-74 years 1-dose series) 2015 Hepatitis B Vaccines (2 of 3 - 19+ 3-dose series) 06/03/2015 05/06/2015 Social Influencers of Health Screening 04/16/2022 Diabetes: Annual Urine Albumin-Creatinine Ratio (uACR) 04/21/2022 Breast Cancer Screening 09/02/2023 09/01/2021 Diabetes: Annual GFR (Glomerular Filtration Rate) 01/31/2024 01/30/2023 Hypertension/CHF/CAD Annual BMP Blood Test 01/31/2024 01/30/2023 Depression Screening 05/07/2024 COVID-19 Vaccine (7 - Mixed Product risk season) 2025 03/20/2024, 07/18/2023, 03/23/2022, Additional history exists Diabetes: Blood Sugar Control Test (HGBA1C) 08/24/2025 02/23/2025, 10/02/2024, 10/02/2024, Additional history exists Cholesterol Screening (Lipid Panel) 11/22/2028 11/23/2023, 04/10/2022 DTaP,Tdap,and Td Vaccines (3 - Td or Tdap) 08/13/2031 08/12/2021, 03/04/2015 HIV Screening Completed 07/18/2023, 04/10/2022 Hepatitis C Screening Completed 07/18/2023, 022 Pneumococcal Vaccine: 50+ Years Completed 07/18/2023, 08/12/2021, 03/18/2015 Influenza Vaccine Completed 02/23/2025, , 02/07/2023, Additional history exists HIB Vaccines Aged Out [...] Procedure Name Priority Date/Time Associated Diagnosis Comments XR FOOT 3+ VIEWS BILAT Routine 03/03/2025 3:34 PM EDT Bilateral foot pain ANNUAL BMP BLOOD TEST Routine 01/30/2023 HEPATITIS C SCREENING Routine 04/10/2022 HIV SCREENING Routine 04/10/2022 LIPID PANEL Routine 04/10/2022 GIANFRANCO SCREENING DIGITAL Routine 09/01/2021 4:10 PM EDT Encounter for screening mammogram for malignant neoplasm of breast from Last 3 Months or Most Recently Relevant to Health Maintenance Results * XR Foot 3+ Views bilat (03/03/2025 3:34 PM EDT) Anatomical Region Laterality Modality Lower Extremities, Foot Bilateral Computed Radiography Narrative 03/03/2025 5:58 PM EDT Right foot 3 views No fracture. No radiopaque foreign joint spaces normal No obvious fracture of the cuboid visualized on the medial bleak view completely intact all borders are intact no signs of splaying dislocation or sclerosis of the medullary canal Foot position rectus Normal talus navicular position normal calcaneal inclination normal symes line talus navicular joint to calcaneal cuboid joint Left foot 3 views No fracture. No radiopaque foreign joint spaces normal Arthritis mild moderate severe Foot position rectus Normal talus navicular position normal calcaneal inclination normal symes line talus navicular joint to calcaneal cuboid joint Result [facility] Ish Lovell DPM IMG XR PROCEDURES Final R esult * Annual BMP Blood Test (01/30/2023) Pathologist [facility] Annual BMP Blood Test abstracted [facility] Provider HEALTH MAINTENANCE Final Result * HIV Screening (04/10/2022) [facility] HIV Screening abstracted [facility] Provider HEALTH MAINTENANCE Final Result * Hepatitis C Screening (04/10/2022) Pathologist [facility] Hepatitis C Screening abstracted [facility] Provider HEALTH MAINTENANCE Final Result * Lipid panel (04/10/2022) [facility] LDL/HDL Ratio 0 0 - 0 Comment:no interpretation Triglycerides 0 0 - 0 mg/dL Comment:no interpretation Cholesterol 0 0 - 0 mg/dL Comment:no interpretation HDL 0 0 - 0 mg/dL Comment:no interpretation LDL Cholesterol 0 0 - 0 mg/dL Comment:no interpretation Blood Venous blood specimen / Unknown Result [facility] Provider LAB BLOOD ORDERABLES Sarah l Result * GIANFRANCO SCREENING DIGITAL (09/01/2021 4:10 PM EDT) Anatomical Region Laterality Modality Mammography 09/01/2021 2:23 PM EDT Narrative 09/01/2021 4:[address] [facility] Diagnostic Imaging Department [address] [place] [id number] Patient: MICHAEL ARREOLA /Age/Sex: 1965 - 56 - F Unit#: [id number] [facility]ing [facility] Ordering Physician: CYNDEE AGUDELO DO Gianfranco Screening Digital - 09/01/21 - 1508 INDICATION: SCREENING COMPARISON: [facility] mammograms dating back to 04/05/2010 TECHNIQUE: CC and MLO views of the breasts were obtained, using full field digital mammography with 3D tomosynthesis views in the MLO projection. Computer aided detection with the iConnectivity 7.2-H was employed. FINDINGS: The breasts contain [...] a target date for the next mammogram. ([id number] / [id number]) , [id number] Dictating Physician: MAIA OMALLEY MD Electronically Signed by: MAIA OMALLEY MD Dic Date/Time: 09/01/21 1608 Sign date/Time: 09/01/21 1610 Procedure Note Maia Omalley MD - 04/26/2022 [facility] Diagnostic Imaging Department [address] [place] [address] Patient: MICHAEL ARREOLA D.O.B./Age/Sex: 1965 - 56 - F Unit#: [id number] Location/Status: SPDIMAM/REG CLI Mnemonic/Ordering Site: [facility] Ordering Physician: CYNDEE AGUDELO DO Gianfranco Screening Digital - 09/01/21 - 1508 INDICATION: SCREENING COMPARISON: [facility] mammograms dating back to 04/05/2010 TECHNIQUE: CC and MLO views of the breasts were obtained, using full field digital mammography with 3D tomosynthesis views in the MLO projection. Computer aided detection with the iConnectivity 7.2-H was employed. FINDINGS: The breasts contain [...] date for the next mammogram. ([id number] / [id number]) , [id number] Dictating Physician: MAIA OMALLEY MD Electronically Signed by: MAIA OMALLEY MD Dic Date/Time: 09/01/21 1608 Sign date/Time: 09/01/21 1610 Cyndee Agudelo DO IMG BI PROCEDURES Final Re sult from Last 3 Months or Most Recently Relevant to Health Maintenance Insurance MEDICAID - [place] Care Teams Manager Client Service Relationship Specialty Start Date End Date Cyndee Agudelo DO [address] [place] [address] PCP - General Family Medicine 05/08/24
--- OUTSIDE RECORDS SUMMARY | 2025-03-10 18:33 | XMS_ITS | Encounter Summary ---
Author Organization [employer] Address [address] [facility] [address] [place] [address] Care Team Providers Care Baling Machine Operator Name Role Phone Marium Agudelo Primary Care Provider + [phone] Encounter Details Date Type Department Care Team (Latest Contact Info) Description 03/10/2025 Travel Social History Tobacco Use Types Packs/Day Years [...] Description 04/13/2025 1:00 PM EST Clinical Support [facility] [address] [place] [phone] Zonia Padilla RN documented as of this encounter Visit Diagnoses Not on filedocumented in this encounter Additional Health Concerns Assessment Noted Time PHQ-9 Depression Total Score: 2 02/24/20 25 12:22 PM EDT documented as of this encounter Care Teams Baling Machine Operator Relationship Specialty Start Date End Date Marium Agudelo DO [address] [place] [address] PCP - General Family Medicine 01/24/19 documented as of this encounter
--- OUTSIDE RECORDS SUMMARY | 2025-03-10 18:33 | XMS_ITS | Encounter Summary ---
Author Organization [employer] Address 75 [facility] 7t [place] [address] Care Team Providers Care Health Care Technician Name Role Phone Marium Agudelo DO Primary Care Provider + [phone] Reason for Visit * Reason Onset Date Comments Nurse Triage 03/09/2025 Encounter Details Date Type Department Care Team ([facility] Contact Info) Description 03/09/2025 Telephone [facility] MEDICINE 230 [place], [place] [phone] Marium Agudelo DO 230 [place] [address] Nurse Triage Social History Tobacco Use Types Packs/Day Years [...] encounter Miscellaneous Notes * Telephone Encounter - Sabine Sorensen RN - 03/09/2025 3:09 PM EST T/C returned to pt utilizing S #[id number] to triage. Pt is a poor historian but from what this writerwas able to gather, pt has sores on her gums and inside of cheeks. No sores on tongue or lips or anywhere else on body. Pt reports some sores are very small, some are big. They have been present x 1 week and look different than previous herpes outbreaks so she doesn't think it is r/t that. Pt reports dry mouth. Declines sore throat, fever, vaginal Sx, any new sexual partners, or any other Sx. Pt able to swallow and is speaking in complete sentences. Pt booked to see PCP for ASK tomorrow. Pt informed of NTTS in case she has any questions or concerns tonight while we are closed. Pt agrees with d isposition. Protocol Used: Sores (Adult) Protocol-Based Disposition: See in Office or Video Visit within 3 Days Positive Triage Question: * Patient wants to be seen * All higher-acuity triage questions were negative Care Advice Discussed: * Reasons To Call Back - You become worse * Telephone Encounter - Milton Jenkins - 03/09/2025 2:39 PM EST Symptom: Mouth Sores or Ulcers - Caller Reports Outcome: Schedule an urgent appointment (within 1 hour) or talk to a nurse or provider soon Reason: Severe pain now The caller accepted this outcome. Contact pt at [phone] documented in this encounter Plan of Treatment Upcoming Encounters Date Type Department Care Team (Late st Contact Info) Description 04/13/2025 1:00 PM EST Clinical Support [facility] MEDICINE [address] [place] [address] Zonia Padilla, DAKOTA documented as of this encounter Visit Diagnoses Not on filedocumented in this encounter Additional Health Concerns Assessment Noted Time PHQ-9 Depression Total Score: 2 02/24/20 25 12:22 PM EDT documented as of this encounter Care Teams Health Care Technician Relationship Specialty Start Date End Date Marium Agudelo DO 230 [place] [address] PCP - General Family Medicine 01/24/19 documented as of this encounter
--- OUTSIDE RECORDS SUMMARY | 2025-03-10 18:33 | XMS_ITS | Encounter Summary ---
Author Organization [employer] Address [address] [place] [address] 7 [place] [address] Care Team Providers Care Plumber'S Assistant Name Role Phone Marium Agudelo DO Primary Care Provider + [phone] Iggy Bolanos RN Unavailable [phone] Reason for Visit * Reason Comments Med Refill Encounter Details Date Type Department Care Team ([facility] Contact Info) Description 12/03/2022 Refill [facility] MEDICINE [address] [place] [phone] Marium Agudelo DO 230 [place] [address] Chronic GERD Social History Tobacco Use Types [...] Upcoming Encounters Date Type Department Care Team ([facility] Contact Info) Description 04/13/2025 1:00 PM EST Clinical Support [facility] MEDICINE [address] [place] [address] [phone] Zonia Padilla RN documented as of this encounter Visit Diagnoses Diagnosis Chronic GERD documented in this encounter Additional Health Concerns Assessment Noted Time PHQ-9 Depression Total Score: 0 07/06/19 23 11:24 AM EST documented as of this encounter Care Teams Plumber'S Assistant Relationship Specialty Start Date End Date Marium Agudelo DO 230 [place] [address] PCP - General Family Medicine 01/24/19 Iggy Bolanos RN [address] [place] [address] Wound/Ostomy Clinical Nurse SpecialistHarbor Pilot 02/20/24 06/04/24 documented as of this encounter
--- OUTSIDE RECORDS SUMMARY | 2025-03-10 18:33 | XMS_ITS | Encounter Summary ---
Author Organization [employer] Address 75 [facility] 7t [place] [address] Care Team Providers Care Lumber Carrier Name Role Phone Marium Agudelo DO Primary Care Provider + [phone] Iggy Bolanos RN Unavailable [phone] Reason for Visit * Reason Comments Med Refill Encounter Details Date Type Department Care Team ([facility] st Contact Info) Description 03/01/2023 Refill [facility] MEDICINE 230 [place], [place] [phone] Marium Agudelo DO 230 [place] [address] Other chronic pain Social History Tobacco Use [...] Description 04/13/2025 1:00 PM EST Clinical Support [facility] MEDICINE 230 [place] [address] Zonia Padilla, DAKOTA documented as of this encounter Visit Diagnoses Diagnosis Other chronic pain documented in this encounter Additional Health Concerns Assessment Noted Time PHQ-9 Depression Total Score: 0 07/06/19 23 11:24 AM EST documented as of this encounter Care Teams Lumber Carrier Relationship Specialty Start Date End Date Marium Agudelo DO 230 [place] [address] PCP - General Family Medicine 01/24/19 Iggy Bolanos, DAKOTA [address] [place] [address] Group Fitness Department HeadMachine Repair Person 02/20/24 06/04/24 documented as of this encounter
--- OUTSIDE RECORDS SUMMARY | 2025-03-10 18:33 | XMS_ITS | Encounter Summary ---
Author Organization [employer] Address [address] [place] [address] 7t [place] [address] Care Team Providers Care Gaming Cage Cashier Name Role Phone Marium Agudelo DO Primary Care Provider + [phone] Iggy Bolanos RN Unavailable [phone] Reason for Visit * Reason Onset Date Comments returning call 05/29/2022 Encounter Details Date Type Department Care Team ([facility] st Contact Info) Description 05/29/2022 Telephone [facility] MEDICINE 230 [place], [place] [phone] Marium Agudelo DO 230 [place] [address] returning call Social History Tobacco Use Types [...] Description 04/13/2025 1:00 PM EST Clinical Support [facility] MEDICINE [address] [place] [address] Zonia Padilla, RN documented as of this encounter Visit Diagnoses Not on filedocumented in this encounter Care Teams Gaming Cage Cashier Relationship Specialty Start Date End Date Marium Agudelo DO 230 [place] [address] PCP - General Family Medicine 01/24/19 Iggy Bolanos, DAKOTA [address] [place] [address] Payroll TechnicianCity Bus Driver 02/20/24 06/04/24 documented as of this encounter
--- OUTSIDE RECORDS SUMMARY | 2025-03-10 18:33 | XMS_ITS | Encounter Summary ---
Author Organization [employer] Address 75 [facility] 7t [place] [address] Care Team Providers Care Auto Painter Helper Name Role Phone Marium Agudelo DO Primary Care Provider + [phone] Iggy Bolanos RN Unavailable [phone] Reason for Visit * Reason Onset Date Comments Appointment Request 02/19/2024 Encounter Details Date Type Department Care Team ([facility] Contact Info) Description 02/19/2024 Telephone [facility] MEDICINE 230 [place], [place] [phone] Marium Agudelo DO 230 [place] [address] Appointment Request Social History Tobacco Use Types [...] the past 12 months, has t he [employer], gas, oil or water company threatened to [...] Description 04/13/2025 1:00 PM EST Clinical Support [facility] MEDICINE 230 [place] [address] Zonia Padilla RN documented as of this encounter Visit Diagnoses Not on filedocumented in this encounter Additional Health Concerns Assessment Noted Time PHQ-9 Depression Total Score: 0 07/18/19 24 12:09 PM EDT documented as of this encounter Care Teams Auto Painter Helper Relationship Specialty Start Date End Date Marium Agudelo DO 230 [place] [address] PCP - General Family Medicine 01/24/19 Iggy Bolanos RN [address] [place] [address] Admissions ClerkSagger Filler 02/20/24 06/04/24 documented as of this encounter
--- OUTSIDE RECORDS SUMMARY | 2025-03-10 18:33 | XMS_ITS | Encounter Summary ---
Author Organization [employer] Address 75 [facility] 7t [place] [address] Care Team Providers Care Desilverizer Name Role Phone Marium Agudelo DO Primary Care Provider + [phone] Iggy Bolanos RN Unavailable [phone] Reason for Visit * Reason Comments Med Refill Encounter Details Date Type Department Care Team ([facility] st Contact Info) Description 03/30/2023 Refill [facility] [place] MEDICINE 230 [place] [address] Latoya Odonnell MD 230 [place] [address] Chronic GERD Social History Tobacco Use Types [...] Description 04/13/2025 1:00 PM EST Clinical Support [facility] MEDICINE 230 [place] [address] Zonia Padilla, DAKOTA documented as of this encounter Visit Diagnoses Diagnosis Chronic GERD documented in this encounter Additional Health Concerns Assessment Noted Time PHQ-9 Depression Total Score: 0 07/06/19 23 11:24 AM EST documented as of this encounter Care Teams Desilverizer Relationship Specialty Start Date End Date Marium Agudelo DO 230 [place] [address] PCP - General Family Medicine 01/24/19 Iggy Bolanos, DAKOTA [address] [place] [address] RumperFisher Troll Line 02/20/24 06/04/24 documented as of this encounter
--- OUTSIDE RECORDS SUMMARY | 2025-03-10 18:33 | XMS_ITS | Encounter Summary ---
Author Organization [employer] Address 75 [facility] 7t [place] [address] Care Team Providers Care Metal Container Maker Name Role Phone Marium Agudelo DO Primary Care Provider + [phone] Iggy Bolanos RN Unavailable [phone] Reason for Visit * Reason Comments Med Refill Encounter Details Date Type Department Care Team ([facility] st Contact Info) Description 02/21/2023 Refill [facility] MEDICINE 230 [place] [address] Latoya Odonnell MD 230 [place] [address] Chronic GERD Social History Tobacco Use Types [...] Description 04/13/2025 1:00 PM EST Clinical Support [facility] MEDICINE 230 [place] [address] Zonia Padilla, DAKOTA documented as of this encounter Visit Diagnoses Diagnosis Chronic GERD documented in this encounter Additional Health Concerns Assessment Noted Time PHQ-9 Depression Total Score: 0 07/06/19 23 11:24 AM EST documented as of this encounter Care Teams Metal Container Maker Relationship Specialty Start Date End Date Marium Agudelo DO 230 [place] [address] PCP - General Family Medicine 01/24/19 Iggy Bolanos, DAKOTA [address] [place] [address] Rubber Belt SplicerPrivate Inquiry Agent 02/20/24 06/04/24 documented as of this encounter
--- OUTSIDE RECORDS SUMMARY | 2025-03-10 18:33 | XMS_ITS | Encounter Summary ---
Author Organization [employer] Address [address] [facility] 7t [place] [address] Care Team Providers Care Specialty Finishing Utility Person Name Role Phone Marium Agudelo DO Primary Care Provider + [phone] Reason for Visit * Reason Comments Med Refill Encounter Details Date Type Department Care Team ([facility] st Contact Info) Description 08/30/2024 Refill [facility] MEDICINE 230 [place], [place] [phone] Marium Agudelo DO 230 [place] [address] Essential hypertension Social History Tobacco Use Types [...] 1:00 PM EST Clinical Support [facility] 230 [place] [address] Zonia Padilla RN documented as of this encounter Visit Diagnoses Diagnosis Essential hypertension Unspecified essential hypertension documented in this encounter Additional Health Concerns Assessment Noted Time PHQ-9 Depression Total Score: 0 07/18/19 24 12:09 PM EDT documented as of this encounter Care Teams Specialty Finishing Utility Person Relationship Specialty Start Date End Date Marium Agudelo DO 230 [place] [address] PCP - General Family Medicine 01/24/19 documented as of this encounter
--- OUTSIDE RECORDS SUMMARY | 2025-03-10 18:33 | XMS_ITS | Encounter Summary ---
Author Organization [employer] Address [address] [place] [address] 7t [place] [address] Care Team Providers Care Patient Representative Name Role Phone ShmuelMarium perla Primary Care Provider + [phone] Iggy Bolanos RN Unavailable [phone] Reason for Visit * Reason Comments Med Refill Encounter Details Date Type Department Care Team ([facility] Contact Info) Description 01/23/2023 Refill [facility] MEDICINE [address] [place] [phone] Latoya Odonnell MD 230 [place] [address] Chronic GERD Social History Tobacco Use Types [...] Upcoming Encounters Date Type Department Care Team ([facility] Contact Info) Description 04/13/2025 1:00 PM EST Clinical Support [facility] MEDICINE [address] [place] [address] [phone] Valerie, Zonia, RN documented as of this encounter Visit Diagnoses Diagnosis Chronic GERD documented in this encounter Additional Health Concerns Assessment Noted Time PHQ-9 Depression Total Score: 0 07/06/19 23 11:24 AM EST documented as of this encounter Care Teams Patient Representative Relationship Specialty Start Date End Date Marium Agudelo DO 230 [place] [address] PCP - General Family Medicine 01/24/19 Iggy Bolanos RN [address] [place] [address] Slice Cutting Machine OperatorClinical Care Coordinator 02/20/24 06/04/24 documented as of this encounter
--- OUTSIDE RECORDS SUMMARY | 2025-03-10 18:33 | XMS_ITS | Encounter Summary ---
Author Organization [employer] Address [address] [place] [address] 7t [place] [address] Care Team Providers Care Straw Hat Brim Cutter Operator Name Role Phone Marium Agudelo DO Primary Care Provider + [phone] Iggy Bolanos RN Unavailable [phone] Reason for Visit * Reason Comments Med Refill Encounter Details Date Type Department Care Team ([facility] Contact Info) Description 11/30/2022 Refill [facility] MEDICINE 230 [place] [address] Marium Agudelo DO 230 [place] [address] Chronic GERD Social History Tobacco Use Types [...] Department Care Team (Late Contact Info) Description 04/13/2025 1:00 PM EST Clinical Support [facility] MEDICINE 230 [place] [address] Zonia Padilla, RN documented as of this encounter Visit Diagnoses Diagnosis Chronic GERD documented in this encounter Additional Health Concerns Assessment Noted Time PHQ-9 Depression Total Score: 0 07/06/19 23 11:24 AM EST documented as of this encounter Care Teams Straw Hat Brim Cutter Operator Relationship Specialty Start Date End Date Marium Agudelo DO 230 [place] [address] PCP - General Family Medicine 01/24/19 Iggy Bolanos RN [address] [place] [address] Division Field InspectorHaunted History Tour Guide 02/20/24 06/04/24 documented as of this encounter
--- OUTSIDE RECORDS SUMMARY | 2025-03-10 18:33 | XMS_ITS | Encounter Summary ---
Author Organization [employer] Address [address] [facility] 7t [place] [address] Care Team Providers Care Customer Operations Intern Name Role Phone Marium Agudelo DO Primary Care Provider + [phone] Reason for Visit * Reason Comments Med Refill Encounter Details Date Type Department Care Team ([facility] st Contact Info) Description 01/24/2025 Refill [facility] MEDICINE 230 [place], [place] [phone] Marium Agudelo DO 230 [place] [address] Social History Tobacco Use Types Packs/Day Years [...] before you got money to buy more: Often true 10/06/2024 Within the past 12 months,th e food you bought just didn't last and you didn't have enough money to get more: Often true 06/2024 Transportation Answer Date Recorded In the past 12 months, has l ack of transportation kept you from medical appts, meetings, work or from getting things needed for daily living? No 07/18/2023 Utilities Answer Date Recorded In the past 12 months, has t he electric, gas, oil or water company threatened to shut off services in your home? I am not sure 10/06/2024 Depression Answer Date Recorded Patient Health Questionnaire-2 [...] 1:00 PM EST Clinical Support [facility] MEDICINE 230 [place] [address] Zonia Padilla RN documented as of this encounter Visit Diagnoses Not on filedocumented in this encounter Additional Health Concerns Assessment Noted Time PHQ-9 Depression Total Score: 6 09/23/19 25 4:27 PM EDT documented as of this encounter Care Teams Customer Operations Intern Relationship Specialty Start Date End Date Marium Agudelo DO 230 [place] [address] PCP - General Family Medicine 01/24/19 documented as of this encounter
--- OUTSIDE RECORDS SUMMARY | 2025-03-10 18:33 | XMS_ITS | Encounter Summary ---
Author Organization [employer] Address 75 [facility] 7t [place] [address] Care Team Providers Care Electrician Sound Name Role Phone Marium Agudelo DO Primary Care Provider + [phone] Reason for Visit * Reason Comments Med Refill Encounter Details Date Type Department Care Team ([facility] st Contact Info) Description 09/29/2024 Refill [facility] MEDICINE 230 [place], [place] [phone] Marium Agudelo DO 230 [place] [address] Essential hypertension Social History Tobacco Use Types [...] Description 04/13/2025 1:00 PM EST Clinical Support [facility] MEDICINE 230 [place] [address] Zonia Padilla RN documented as of this encounter Visit Diagnoses Diagnosis Essential hypertension Unspecified essential hypertension documented in this encounter Additional Health Concerns Assessment Noted Time PHQ-9 Depression Total Score: 6 09/23/19 25 4:27 PM EDT documented as of this encounter Care Teams Electrician Sound Relationship Specialty Start Date End Date Marium Agudelo DO [address] [place] [address] PCP - General Family Medicine 01/24/19 documented as of this encounter
--- OUTSIDE RECORDS SUMMARY | 2025-03-10 18:33 | XMS_ITS | Encounter Summary ---
Author Organization [employer] Address 75 [facility] 7t [place] [address] Care Team Providers Care Supervisor Trust Accounts Name Role Phone Marium Agudelo DO Primary Care Provider + [phone] Iggy Bolanos RN Unavailable [phone] Reason for Visit * Reason Comments Med Refill Encounter Details Date Type Department Care Team ([facility] st Contact Info) Description 04/01/2023 Refill [facility] MEDICINE 230 [place], [place] [phone] Marium Agudelo DO 230 [place] [address] Social History Tobacco Use Types Packs/Day Years [...] 1:00 PM EST Clinical Support [facility] MEDICINE 230 [place] [address] Zonia Padilla, DAKOTA documented as of this encounter Visit Diagnoses Not on filedocumented in this encounter Additional Health Concerns Assessment Noted Time PHQ-9 Depression Total Score: 0 07/06/19 23 11:24 AM EST documented as of this encounter Care Teams Supervisor Trust Accounts Relationship Specialty Start Date End Date Marium Agudelo DO 230 [place] [address] PCP - General Family Medicine 01/24/19 Iggy Bolanos, DAKOTA [address] [place] [address] Set Up PersonChief Wellness Officer 02/20/24 06/04/24 documented as of this encounter
--- OUTSIDE RECORDS SUMMARY | 2025-03-10 18:33 | XMS_ITS | Encounter Summary ---
Author Organization [employer] Address [address] [place] [address] 7t [place] [address] Care Team Providers Care Machine Ironer Name Role Phone Marium Agudelo DO Primary Care Provider + [phone] Iggy Bolanos RN Unavailable [phone] Reason for Visit * Reason Onset Date Comments Med Refill 09/11/2022 Encounter Details Date Type Department Care Team ([facility] st Contact Info) Description 09/11/2022 Telephone [facility] MEDICINE 230 [place], [place] [phone] Marium Agudelo DO 230 [place], [place] [phone] Med Refill Social History Tobacco Use Types [...] Miscellaneous Notes * Telephone Encounter - Arielle Poseynez - 09/11/2022 10:05 AM EDT Tc from patient requesting a med refill on medication oxycodone 5 mg. Please send to [facility] Pharm[facility]. PCP Dr. Agudelo documented in this encounter Plan of Treatment Upcoming Encounters Date Type Department Care Team (Late st Contact Info) Description 04/13/2025 1:00 PM EST Clinical Support [facility] MEDICINE 230 [place] [address] Zonia Padilla RN documented as of this encounter Visit Diagnoses Not on filedocumented in this encounter Additional Health Concerns Assessment Noted Time PHQ-9 Depression Total Score: 0 07/06/19 23 11:24 AM EST documented as of this encounter Care Teams Machine Ironer Relationship Specialty Start Date End Date Marium Agudelo DO 230 [place] [address] PCP - General Family Medicine 01/24/19 Iggy Bolanos RN [address] [place] [address] DisplayerFrench Professor 02/20/24 06/04/24 documented as of this encounter
--- OUTSIDE RECORDS SUMMARY | 2025-03-10 18:34 | XMS_ITS | Encounter Summary ---
Author Organization [employer] Address [address] [place] [address] 7 [place] [address] Care Team Providers Care E Business Project Manager Name Role Phone Marium Agudelo DO Primary Care Provider + [phone] Iggy Bolanos RN Unavailable [phone] Reason for Visit * Reason Comments Med Refill Encounter Details Date Type Department Care Team ([facility] Contact Info) Description 10/20/2022 Refill [facility] MEDICINE [address] [place] [phone] Marium Agudelo DO 230 [place] [address] Chronic GERD Social History Tobacco Use Types [...] Encounters Date Type Department Care Team ([facility] Contact Info) Description 04/13/2025 1:00 PM EST Clinical Support [facility] MEDICINE [address] [place] [address] [phone] Zonia Padilla RN documented as of this encounter Visit Diagnoses Diagnosis Chronic GERD documented in this encounter Additional Health Concerns Assessment Noted Time PHQ-9 Depression Total Score: 0 07/06/19 23 11:24 AM EST documented as of this encounter Care Teams E Business Project Manager Relationship Specialty Start Date End Date Marium Agudelo DO 230 [place] [address] PCP - General Family Medicine 01/24/19 Iggy Bolanos RN [address] [place] [address] Model Maker FiberglassSoftware Systems Analyst 02/20/24 06/04/24 documented as of this encounter
--- OUTSIDE RECORDS SUMMARY | 2025-03-10 18:34 | XMS_ITS | Clinical Summary ---
Author Organization [employer] Address [address] [place] [address] [address] [place] [address] Care Team Providers Care Smearer Name Role Phone MagnusMarium Primary Care Provider + [phone] Allergies No known active allergies Medications clonazePAM (KlonoPIN) 0.5 MG tablet Take 1 tablet by mouth Once per day. Active glucose-vitamin C 4-6 GM-MG oral gel chew 2 -4 tablets PO as needed for hypoglycemia 022 Active Insulin Lispro 100 UNIT/ML solution Inject under the skin every 8 (eight) hours. Active Acetaminophen Extra Strength 500 MG tablet Take 500 mg by mouth every 12 (twelve) hours if needed. 023 Active Blood Pressure Monitoring (Omron 3 Series BP Monitor) device 022 Active Continuous Blood Gluc Sensor (FreeStyle Antonina 2 Sensor) [facility] USE DIRECTED FOR CONTINUOUS GLUCOSE MONITORING DAILY CHANGE EVERY 14 DAYS 023 Active estradiol (Estrace) 0.1 MG/GM vaginal cream 023 Active FeroSul 325 (65 Fe) MG tablet 023 Active hydrOXYzine HCl (Atarax) 25 MG tablet Take 25-50 mg by mouth at bedtime. 023 Active FreeStyle lancets USE TO CHECK BLOOD GLUCOSE 5 TIMES A DAY 022 Active magnesium 200 MG tablet Take 2 tablets by mouth at bedtime. 023 Active nitroglycerin (Nitrostat) 0.4 MG SL tablet 022 Active Anoro Ellipta 62.5-25 MCG/ACT aerosol powder 023 Active Continuous Blood Gluc Transmit (Dexcom G6 transmitter) [facility] Active gabapentin (Neurontin) 300 MG capsuleIndicatio ns:Other chronic pain TAKE 1 CAPSULE BY MOUTH THREE TIMES A DAY 90 capsule 3 023 Active lisinopril 40 MG tablet Take 1 tablet (40 mg) by mouth in the morning. 90 tablet 3 Active Insulin Disposable Pump (Omnipod 5 G6 Pods, Gen 5,) [facility] Active Blood Glucose Monitoring Suppl (FreeStyle Lite) [...] unspecified whether stage 3a or 3b CKD ([facility]) TEST BLOOD SUGAR FOUR TIMES DAILY 150 strip 3 Active clopidogrel (Plavix) 75 MG tablet Take 1 tablet by mouth Once per day. Active Ventolin HFA 108 (90 Base) MCG/ACT inhaler INHALE 2 PUFFS BY MOUTH FOUR TIMES DAILY NEEDED FOR SHORTNESS OF BREATH OR WHEEZING Active Lantus SoloStar 100 UNIT/ML pen Inject 17 Units under the skin at bedtime. Active zolpidem (Ambien) 10 MG tablet Take 1 tab at bedtime please wait at least 4 hours after taking the clonazepam to take the med Active amLODIPine (Norvasc) 10 MG tablet Take 1 tablet by mouth Once per day. Active cholecalciferol VITAMIN D (Vitamin D-3) 50 MCG (1999 UT) capsuleIndicatio ns:Vitamin D deficiency TAKE 1 CAPSULE BY MOUTH EVERY MORNING 90 capsule 3 025 Active docusate sodium (Colace) 100 [...] Active omeprazole (PriLOSEC) [address] capsule Active Gemtesa 75 MG tablet Take 1 tablet by mouth Once per day. Active famotidine (Pepcid) 40 MG tabletIndication s:Chronic GERD TAKE 1 TABLET BY MOUTH EVERY DAY IN THE MORNING 90 tablet 1 Active metoprolol succinate XL (Toprol-XL) 25 MG 24 hr tablet Take 25 mg by mouth Once per day. 024 2024 Active sodium chloride 1 g tabletIndication s:Hyponatremia Take 1 tablet (1 g) by mouth 3 times daily. 21 tablet 025 2025 Active Diclofenac Sodium 1 % gel APPLY 2 GRAMS TOPICALLY IF NEEDED IN THE MORNING AND AT BEDTIME (PAIN). 100 g 3 Active nicotine (Nicoderm CQ) 21 MG/24HR patchIndications :Tobacco dependence Place 1 patch on the skin 1 (one) time each day at the same time. 30 patch Active Stiolto Respimat 2.5-2.5 MCG/ACT aerosol solution inhaler 2 puffs Once per day. Active metoprolol succinate XL (Toprol-XL) 50 MG 24 hr tablet Active oxyCODONE-acetam inophen (Percocet) 5-325 MG tabletIndication s:Chronic pain syndrome Take 1 tablet by mouth every 4 (four) hours if needed for severe pain for up to 28 days. 140 tablet 025 2024 Active fluticasone (Flonase) 50 MCG/ACT nasal spray Administer 2 sprays into each nostril Once per day. 48 g 3 Active cetirizine (ZyrTEC) 10 MG tablet Take 1 tablet (10 mg) by mouth Once per day. 90 tablet 3 025 2025 Active sodium chloride ([place] Nasal [place]) 0.65 % nasal spray Administer 2 sprays into each nostril if needed for congestion. 30 mL 3 025 2025 Active benzocaine (Orajel) 10 % mucosal gel Use in the mouth or throat if needed in the morning, at noon, and at bedtime for mucositis. 7 g 025 2025 Active valACYclovir (Valtrex) 500 MG tablet Take 2 tablets (1,000 mg) by mouth 2 times daily for 1 day. Start FREDRICK after symptom onset 4 tablet 2 2024 Active fluticasone (Flonase) 50 MCG/ACT nasal spray Administer 2 sprays into affected nostril(s) at bed time. 022 2024 Discontinued(R eorder (will not trigger notification to Pharmacy)) valACYclovir (Valtrex) 500 MG tablet TAKE 1 TABLET(500 MG) BY MOUTH IN THE MORNING 30 tablet 5 025 2024 Discontinued oxyCODONE-acetam inophen (Percocet) 5-325 MG tabletIndication s:Chronic pain syndrome Take 1 tablet by mouth every 4 (four) hours if needed for severe pain for up to 28 days. Do not start before January 20, 2025. 140 tablet 025 2024 Discontinued(R eorder (will not trigger notification to Pharmacy)) amoxicillin-clav ulanate (Augmentin) 875-125 MG tablet Take 1 tablet by mouth 2 times daily for 7 days. 14 tablet 025 2024 predniSONE (Deltasone) 20 MG tablet Take 2 tablets (40 mg) by mouth Once per day for 5 days. 10 tablet 025 2024 benzonatate (Tessalon Perles) 100 MG capsule Take 1 capsule (100 mg) by mouth if needed in the morning, at noon, and at bedtime for cough for up to 10 days. Do not crush or chew. 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 C-spine X-Ray from [facility] -- Diabetic nephropathy 05/31/2022 Chronic constipation 04/13/2022 Degenerative [...] NOV 2023 Stage 3 chronic kidney disease (CMS/HCC) 017 Overview (05/31/2022): -Follows with Dr. Escalera Type 1 diabetes 05/22/2014 Assessment & Plan (09/10/2024 4:43 PM EDT): Continue with same management follow-up with PCP Assessment & Plan (07/18/2023 2:37 PM EDT): A1c not at goal -cont insulin pump as per endo -cont regular FS monitoring and bring glucometer to visits for review -cont lisinopril and lipitor daily -f/u w/ endo as scheduled -s/p optho eval JUL 2023 at [facility] -foot exam next visit* Peripheral arterial [...] 05/31/2022 Obstructive chronic bronchit is without exacerbation ([facility]) 05/31/2022 07/07/2022 Type 1 diabetes 05/01/2022 07/07/2022 [...] Encounters Date Type Department Care Team Description 03/10/2025 12:00 PM EST Office Visit [facility] [address] [facility] [place] [address] Marium Agudelo DO Gum lesion (Primary Dx) 03/10/2025 Travel 03/09/2025 Telephone [facility] [address] [facility] [place] [address] Marium Agudelo DO Nurse Triage 02/23/2025 12:00 PM EDT Office Visit [facility] [place] [address] Marium Agudelo DO Acute non-recurrent sinusitis, unspecified location (Primary Dx); COPD exacerbation (CMS/HCC) (HCC); Type 1 diabetes mellitus with stage 3 chronic kidney disease, unspecified whether stage 3a or 3b CKD (HCC); Encounter for immunization; Sore throat; Nasal congestion; Cough in adult 02/23/2025 Travel 02/17/2025 Telephone [facility] [address] [facility] [address] [facility] [place] [address] Marium Agudelo DO ER Follow-up 02/17/2025 Refill [facility] [place] [address] Marium Agudelo DO Chronic pain syndrome 01/24/2025 Refill [facility] [address] [facility] [place] [address] Marium Agudelo DO 01/19/2025 Refill [facility] [address] [facility] [place] [address] Marium Agudelo DO Chronic pain syndrome 01/09/2025 Patient Outreach [facility] [address] [facility] [place] [address] Marium Agudelo DO Care Management (C3CM- f/u call #2 lvm) 01/08/2025 1:30 PM EDT Clinical Support [facility] MEDICINE [address] [place] [phone] Zonia Padilla RN FPC current use of opiate analgesic (Primary Dx) 01/08/2025 Travel 12/31/2024 Patient Outreach [address] [address] Marium Agudelo DO Care Management (C3CM- f/u call lvm) 12/27/2024 Refill [facility] MED[facility]INE [address] [place] [phone] Marium Agudelo DO 12/23/[address] [address] Marium Agudelo DO Chronic pain syndrome 12/22/2024 2:30 PM EDT Office Visit [facility] OPTOMETRY [address] [place] [phone] Abdirahman, Amber, OD Type 1 diabetes mellitus without retinopathy (CMS/HCC) (Primary Dx); Open angle with borderline findings and low glaucoma risk in both eyes; Mixed type age-related cataract, both eyes; Ptosis of both eyelids; Presbyopia 12/22/2024 Travel 12/17/2024 Patient Outreach [address] [address] Marium Agudelo DO Care Coordination (SDOH f/u) 12/17/2024 Patient Outreach [address] [address] Marium Agudelo DO Care Management (C3CM- f/u call) 12/11/2024 Patient Outreach [address] [address] Marium Agudelo DO Care Management (C3CM- f/u call) from Last 3 Months Immunizations Immunization Administration Dates Next Due Hep B, adult 05/06/2015 Influenza injectable quadriv alent IIV4 with preservative 01/22/2018,03/19/2017 Influenza injectable quadriv alent preservative free 02/07/2023,02/27/2022,04/06/2021,05/13 Influenza, IIV3, injectable 04/06/2021,0 01/22/2018,03/19/2017,03/04 Influenza, seasonal, injecta ble, preservative free 02/23/2025,03/20/2024 Moderna Covid-19 Vaccine 12+ 08/26/2020,07/24/19 21 Pfizer [...] Mass Index 30.51 03/10/2025 11:55 AM EST Plan of Treatment Upcoming Encounters Date Type Department Care Team (Late st Contact Info) Description 04/13/2025 1:00 PM EST Clinical Support [facility] MEDICINE [address] [place] [address] Zonia Padilla, RN Health Maintenance Due Date Last Done Comments CT Colonography 1965 FIT DNA/Cologuard 1965 FIT 1965 FOBT 1965 Sigmoidoscopy 1965 Diabetes: Foot Exam 1975 Zoster Vaccines (1 of 2) 2015 Hepatitis B Vaccines (2 of 3 - 19+ 3-dose series) 06/03/2015 05/06/2015 Colonoscopy 08/08/2021 08/08/2016 Colorectal Cancer Screening 08/08/2021 Cervical Cancer Screening 07/04/2022 HPV/Cotest 07/04/2022 07/04/2017 Pap Smear 07/04/2022 07/04/2017 Mammogram 09/05/2024 09/06/2023, 03/08, 09/12/2022, Additional history exists Lipid Panel 11/22/2024 11/23/2023, 07/05, 04/10/2022, Additional history exists RSV Patients and Patients Aged 60 years or older (1 - Risk 60-74 years 1-dose series) 2025 Diabetes: Hemoglobin A1C 05/26/2025 025, 09/10/2024, 08/04/2024, Additional history exists Alcohol/Substance Use Screening 02/23/2026 02/23/2025 Depression Screening 02/23/2026 02/23/2025, 02/24/20 25 Disability Screening 02/23/2026 02/23/2025 SDOH Screening 02/23/2026 02/23/2025 Tobacco Screening 03/10/2026 03/10/2025 Eye Exam 12/22/2026 12/22/2024, 12/05, 12/22/2024, Additional history exists DTaP/Tdap/Td Vaccines (3 - Td or Tdap) 08/13/2031 08/12/2021, 03/04/2015 HIV Screening Completed 07/18/2023, 09/2021, 04/27/2021, Additional history exists Hepatitis C Screening Completed 07/18/2023 , 04/10/2022, 04/27/2021, Additional history exists Pneumococcal Vaccine: 50+ Years Completed 07/18/2023, 08/12/2021, 03/18/2015 COVID-19 Vaccine Completed 03/20/2024, , 03/23/2022, Additional history exists Influenza Vaccine Completed 02/23/2025, , 02/07/2023, Additional [...] Procedure Name Priority Date/Time Associated Diagnosis Comments POC CONNOR ID NOW STREP A Routine 02/23/2025 1:26 PM EDT Sore throat POCT INFLUENZA B (ID NOW RAPID MOLECULAR) Routine 02/23/2025 12:55 PM EDT Nasal congestion Cough in adult POCT INFLUENZA A (ID NOW RAPID MOLECULAR) Routine 02/23/2025 12:55 PM EDT Nasal congestion Cough in adult POCT COVID-19 AG CONNOR ID NOW Routine 02/23/2025 12:54 PM EDT Sore throat Cough in adult POCT GLYCATED HEMOGLOBIN, TOTAL Routine 02/23/2025 12:34 PM EDT Type 1 diabetes mellitus with stage 3 chronic kidney disease, unspecified whether stage 3a or 3b CKD (HCC) POCT GLUCOSE Routine 02/23/2025 12:33 PM EDT Type 1 diabetes mellitus with stage 3 chronic kidney disease, unspecified whether stage 3a or 3b CKD (HCC) POCT JASMIN-14 URINE DRUG SCREEN Routine 01/08/2025 1:44 PM EDT knuckler current use of opiate analgesic ACETYLCHOLINE RECEPTOR BLOCKING ANTIBODY Routine 12/22/2024 4:12 PM EDT Ptosis of both eyelids THYROID PEROXIDASE ANTIBODIES Routine 12/22/2024 4:12 PM EDT Ptosis of both eyelids THYROGLOBULIN ANTIBODIES Routine 12/22/2024 4:12 PM EDT Ptosis of both eyelids T4, FREE Routine 12/22/2024 4:12 PM EDT Ptosis of both eyelids T3, TOTAL Routine 12/22/2024 4:12 PM EDT Ptosis of both eyelids TSH Routine 12/22/2024 4:12 PM EDT Ptosis of both eyelids OCT, OPTIC NERVE - OU - BOTH EYES Routine 12/22/2024 2:30 PM EDT Open angle with borderline findings and low glaucoma risk in both eyes LIPID PANEL, STANDARD Routine 11/23/2023 1:40 PM [...] Recently Relevant to Health Maintenance Results * POCT Rapid Strep A CONNOR ID NOW (02/23/2025 1:26 PM EDT) Rapid Strep A Screen Negative Negative, None Detected [employer] Media Lot # [id number] Lot# Expiration Date Swab 02/23/2025 1:26 PM EDT Marium Adriancyn DO POINT OF CARE TEST ENTER/YAYO T ORDERABLES Final Result * POCT Rapid Influenza B CONNOR ID NOW (02/23/2025 12:55 PM EDT) Influenza B Negative Negative, Indeterminate [facility] QC Media Lot # [id number] [facility] Lot# Expiration Date [facility] Swab 02/23/2025 12:5 5 PM EDT Marium Magnus DO POINT OF CARE TEST ENTER/YAYO T ORDERABLES Final Result Performing Organization Address [facility] Co de Phone Number [facility] [address] [place] [phone] * POCT Rapid Influenza A CONNOR ID NOW (02/23/2025 12:55 PM EDT) Influenza A Negative Negative, Indeterminate [facility] QC Media Lot # [id number] [facility] Lot# Expiration Date [facility] Swab 02/23/2025 12:5 5 PM EDT Marium Magnus DO POINT OF CARE TEST ENTER/YAYO T ORDERABLES Final Result Performing Organization Address [facility] Co de Phone Number [facility] [address] [place] [phone] * POCT Rapid Covid-19 CONNOR ID NOW (02/23/2025 12:54 PM EDT) Coronavirus Antigen PCR Negative Negative, Indeterminate, None Detected, Invalid, Specimen unsatisfactory for evaluation, Weakly Positive, 2+ QC Media Lot # [id number] Lot# Expiration Date Swab 02/23/2025 12:5 4 PM EDT Marium Magnus DO POINT OF CARE TEST ENTER/YAYO T ORDERABLES Final Result * (ABNORMAL) POCT Hgb A1c (02/23/2025 12:34 PM EDT) Hemoglobin A1C 8.4(A) 4.0 - 5.7 % QC Media Lot # [id number] Lot# Expiration Date , Blood 02/23/2025 12:3 4 PM EDT Marium Magnus DO POINT OF CARE TEST ENTER/YAYO T ORDERABLES Final Result * POCT Glucose (02/23/2025 12:33 PM EDT) Glucose Blood, POC 156 60 - 200 mg/dL Comment:Random QC Media Lot # [id number] Lot# Expiration Date , Blood Capillary blood specimen / Unknown 02/23/2025 12:33 PM EDT Marium Magnus DO POINT OF CARE TEST ENTER/YAYO T ORDERABLES Final Result * POCT JASMIN-14 Urine Drug Screen (01/08/2025 1:44 PM EDT) THC Negative Negative Cocaine Screen, Urine Negative Negative Opiate Screen, Urine Negative Negative Methamphetamine Screen Urine Negative Negative Amphetamine Screen, Urine Negative Negative Benzodiazepines Screen, Urine Negative Negative Barbiturate Screen, Urine Negative Negative Methadone Screen, Urine Negative Negative Buprenophine Screen, Urine Negative Negative TCA, Urine Negative Negative MDMA Urine Negative Negative ng/mL Oxycodone Screen, Urine Positive Negative Phencyclidine (PCP), Urine Negative Negative Propoxyphene, Urine Negative Negative Fentanyl, Urine Negative Negative Urine Urine specimen obtained by clean catch procedure / Unknown 01/08/2025 1:44 PM EDT Zonia Oviedo RN - 01/08/2025 1:44 PM EDT [employer] cup Lot#[id number] Exp. 02/10/26 Internal Pass Control Marium Magnus DO POINT OF CARE TEST ENTER/YAYO T ORDERABLES Final Result * Thyroid peroxidase antibody (12/22/2024 4:12 PM EDT) Thyroid Peroxidase Antibodies 1 <9 IU/mL [facility] Comment:THIS TEST WAS PERFOR MED AT:[facility] [address] [phone] RENEE MD Blood Venous blood specimen / Unknown 12/22/2024 4:12 PM EDT 12/22/2024 6:07 PM EDT Amber Abdirahman OD LAB BLOOD ORDERABLES Final Re sult Performing Organization Address [facility]/ZIP Co de Phone Number [facility] [address] [place] [phone] * Acetylcholine Receptor Blocking Antibody (12/22/2024 4:12 PM EDT) Acetylcholine Receptor Blocking Antibody <15 <15 [facility] Comment:Result Units: % Inhi bitionTHIS TEST WAS PERFORMED AT:[facility] [id number] [place] [id number] TOMPKINS MD,PHD,SINA Blood Venous blood specimen / Unknown 12/22/2024 4:12 PM EDT 12/22/2024 6:07 PM EDT Amber Abdirahman OD LAB BLOOD ORDERABLES Final Re sult Performing Organization Address [facility]/ZIP Co de Phone Number [facility] [address] [place] [phone] * Thyroglobulin Antibodies (12/22/2024 4:12 PM EDT) Thyroglobulin Antibodies <1 < or = 1 IU/mL [facility] Comment:THIS TEST WAS PERFOR MED AT:[facility] [address] [phone] RENEE MD Blood Venous blood specimen / Unknown 12/22/2024 4:12 PM EDT 12/22/2024 6:07 PM EDT mAber Gary OD LAB BLOOD ORDERABLES Final Re sult Performing Organization Address City/[facility]/ZIP Co de Phone Number [facility] [address] [place] [phone] * T3, Total (12/22/2024 4:12 PM EDT) T3, Total 79 76 - 181 ng/dL [facility] Comment:THIS TEST WAS PERFOR MED AT:[facility] [address] [phone] RENEE MD Blood Venous blood specimen / Unknown 12/22/2024 4:12 PM EDT 12/22/2024 6:07 PM EDT Amber Gary OD LAB BLOOD ORDERABLES Final Re sult Performing Organization Address [facility] Co de Phone Number [facility] [address] [place] [phone] * TSH (12/22/2024 4:12 PM EDT) Thyroid Stimulating Hormone 2.36 0.32 - 4.0 uIU/mL [facility] Comment:TSH 3rd Generation ( [facility]) Blood Venous blood specimen / Unknown 12/22/2024 4:12 PM EDT 12/22/2024 6:07 PM EDT Amber Diehlfo OD LAB BLOOD ORDERABLES Final Re sult Performing Organization Address City/[facility]/ZIP Co de Phone Number [facility] [address] [place] [phone] * T4, free (12/22/2024 4:12 PM EDT) Free T4 (Free Thyroxine) 0.88 0.71 - 1.85 ng/dL [facility] Blood Venous blood specimen / Unknown 12/22/2024 4:12 PM EDT 12/22/2024 6:07 PM EDT us Amber Gary OD LAB BLOOD ORDERABLES Final Re sult [facility] [address] [place] [address] [phone] * OCT, Optic Nerve - OU - Both Eyes (12/22/2024 2:30 PM EDT) Narrative Amber Gary, OD - 01/14/2025 12:23 PM EDT Images from the original result were not included. Right Eye Images reviewed and comparison made to baseline. To assess optic nerve function and for use in future follow-up. Reliability: borderline. Left Eye Images reviewed and comparison made to baseline. To assess optic nerve function and for use in future follow-up. Reliability: borderline. Notes OCT OPTIC NERVE INTERPRETATION Optical Coherence Tomography Interpretation Report Test Details: Measurements: OD OS C/D Horizontal 0.83 0.76 C/D Vertical 0.77 0.73 Disc area 2.41 mm 2 2.43 mm 2 RNFL Average 101 microns 104 microns Test findings: OD: Normal RNFL thickness 360 degrees. OS: Normal RNFL thickness 360 degrees. Impression and Plan: Large optic nerves with large cupping in both eyes. No suspicion for glaucoma at this time. No treatment indicated. Will monitor at her next exam. us Amber Gary OD OPHTH TOMOGRAPHY Final Result * (ABNORMAL) Lipid Panel, Standard (11/23/2023 1:40 PM EDT) Triglycerides 119 <150 mg/dL [facility] Comment:Desirable Triglyceri de: less than 150 mg/dLBorderline High Triglyceride 150-199 mg/dLHigh Triglyceride: 200-499 mg/dLVery High Triglyceride: greater than or equal to 5OO mg/dL Cholesterol 114 <200 mg/dL [facility] Comment:Desirable Cholestero l: less than 200 mg/dLBorderline High Cholesterol: 200-239 mg/dLHigh Cholesterol: greater than 239 mg/dL LDL Cholesterol Calculated 52 <100 mg/dL [facility] Comment:Desirable LDL: less than 100 mg/dLNear Optimal/Above Optimal LDL: 110- 129 mg/dLBorderline High LDL: 130-159 mg/dLHigh LDL: 160-189 mg/dLVery High LDL: greater than or equal to 190 mg/dL HDL Cholesterol 39(L) >40 mg/dL [facility] Comment:Desirable HDL: great er than 40 mg/dL Note: This HDL assay may give artificially low results in patients with liver disease. Blood Venous blood specimen / Unknown 11/23/2023 1:40 PM EDT 11/23/2023 4:07 PM EDT Marium Agudelo DO LAB BLOOD ORDERABLES Final R esult Performing Organization Address City/State/[facility] Co de Phone Number [facility] [address] [place] [phone] * BI Mammogram Screening Tomosynthesis Bilateral (09/06/2023 3:25 PM EDT) Anatomical Region Laterality Modality Breast Bilateral Mammography 09/06/2023 3:25 PM EDT Narrative 09/17/2023 1:35 PM EDT [address] [place] [address] Mammography Report Signed Patient: Tracy Arreola MR#: [id number] : 1965 Acct:[id number] Age/Sex: 58 / F ADM Date: 09/06/23 Loc: HO.MAMMO Attending Dr: Marium Agudelo DO Ordering Physician: Dylan Samll MD Results: 2Benig n Findings Date of Service: 09/06/23 Follow Up: 1 Year From Orig ina Mammogram Procedure(s): MM tomosynthesis screening BI Accession Number(s): [id number] cc: Marium Agudelo DO; Dylan Small MD [...] in OV> 09/17/23 1332 DD/ 1525 TD/TT: Hot Roller: Procedure Note Donotuseinterpreter, Image - 09/17/2023 [facility] [address] [place] [address] Mammography Report Signed Patient: Robyn Arreola#: [id number] : 1965Acct:[id number] Age/Sex: 58 / FADM Date: 09/06/23 Loc: [facility] Attending Dr: Marium Agudelo DO Ordering Physician: Dylan Small MDResults: 2Benig n Findings Date of Service: 09/06/23Follow Up: 1 Year From Orig inal Mammogram Procedure(s): MM tomosynthesis screening BI Accession Number(s): [id number] cc: Marium Agudelo DO; Dylan Small MD [...] in OV> 09/17/23 1332 DD/ 1525 TD/TT: Hot Roller: [facility] External Provider IMG BI PROCEDURES Final Result * Hepatitis C Antibody with Reflex to HCV, RNA, Quantitative, Real-Time PCR (07/18/2023 1:07 PM EDT) Hepatitis C Antibody Nonreactive Nonreactive [facility] Comment:Antibodies to HCV no t detected; does not exclude early acuteHCV infection. Blood Venous blood specimen / Unknown 07/18/2023 1:07 PM EDT 07/18/2023 3:59 PM EDT Marium Agudelo DO LAB BLOOD ORDERABLES Final R esult [facility] [address] [place] [address] [phone] * HIV-1/2 Antigen and Antibodies, Fourth Generation, with Reflexes (07/18/2023 1:07 PM EDT) HIV AB/AG Nonreactive Nonreactive [facility] Comment:HIV-1 p24 Ag and/or HIV-1/HIV-2 Ab not detected.A test result that is nonreactive does not exclude thepossibility of exposure to or infection with HIV-1 and/orHIV-2. Nonreactive results in this assay for individualswith prior exposure to HIV-1 and/or HIV-2 may be due toantigen and antibody levels that are below the limit ofdetection of this assay.The [employer] HIV Ag/Ab Combo assay result andsupplemental assay results should be interpreted inconjunction with the patient's clinical presentation,history and other laboratory results. If the results areinconsistent with clinical evidence, additional testing issuggested to confirm the result. Blood Venous blood specimen / Unknown 07/18/2023 1:07 PM EDT 07/18/2023 3:59 PM EDT us Marium Agudelo DO LAB BLOOD ORDERABLES Final R esult [facility] [address] [place] [phone] * HPV mRNA E6/E7 (07/04/2017 4:20 PM EST) Pathologist [facility] HPV mRNA E6/E7 Not Detected NOT DETECTED [facility] Comment: This test was performed using the APTIMA(R) HPV Assay ([employer] This assay detects E6/E7 viral messenger RNA (mRNA) from 14 high-risk HPV types (16,18,31,33,35,39,45,51, 52,56,58,59,66,68). For additional information please refer to: http://education.DHgate/faq/XZU021u4 (This link is being provided for informational/ educational purposes only.) Test Performed by [facility], [facility], [address] [place] [address] Joaquin Rosario M.D., Ph.D., Director of Laboratories , [facility] [id number] Please note: Effective 01/17/2016, HPV testing will be performed using [employer]'s APTIMA test which targets mRNA. Detecting mRNA instead of DNA, as in older methods, offers significant improvements in specificity. 07/04/2017 4:20 PM EST Nery Brody CNM HISTORICAL/NON ORDERABLE LABS Final Result [facility] [address] * Pap Smear (07/04/2017) Pap smear performed Historical Provider HEALTH MAINTENANCE Final Result * Colonoscopy (08/08/2016) Colonoscopy performed Historical Provider HEALTH MAINTENANCE Edited Result - Final from Last 3 Months or Most Recently Relevant to Health Maintenance Insurance Care Teams Smearer Relationship Specialty Start Date End Date Marium Agudelo DO [address] [place] [phone] PCP - General Family Medicine 01/24/19
--- OUTSIDE RECORDS SUMMARY | 2025-03-10 18:34 | XMS_ITS | Encounter Summary ---
Author Organization [employer] Address [address] [facility] [address]t [place] [address] Care Team Providers Care Chart Calculator Name Role Phone Marium Agudelo DO Primary Care Provider + [phone] Iggy Bolanos RN Unavailable [phone] Encounter Details Date Type Department Care Team ([facility] st Contact Info) Description 07/04/2022 Abstract [facility] [address] [place], [place] [phone] Marium Agudelo DO [address] [place] [address] Social History Tobacco Use Types Packs/Day Years [...] AM EST documented as of this encounter Functional Status * Over the past 2 weeks, how often have you been bothered by any of the following problems? Question Answer Date of Assessment Author Patient Health Questionnaire-2 Score 0 0305/2022 11:24 AM Apurva Bocanegra [place] * Over the past 2 weeks, how often have you been bothered by any of the following problems? Question Answer Date of Assessment Author Little interest or pleasure in doing things Not at all 07/05/2022 11:24 AM Apurva Bocanegra M A Feeling down, depressed, or hopeless Not at all 07/05/2022 11:24 AM Apurva Bocanegra M A Trouble falling or staying asleep, or sleeping too much Not at all 07/05/2022 11:24 AM EST Jeison Owusu [place] Feeling tired or having rosita le energy Not at all 07/05/2022 11:24 AM Apurva Bocanegra M A Poor appetite or overeating Not at all 07/05/2022 11 :24 AM Apurva Bocanegra [place] Feeling bad about yourself - or that you are a failure or have let yourself or your family down Not at all 07/05/2022 11:24 AM EST Apurva Reyes MA Trouble concentrating on thi ngs, such as reading the newspaper or watching television Not at all 07/05/2022 11:24 AM Apurva Bocanegra M A Moving or speaking so slowly that other people could have noticed? Or the opposite - being so fidgety or restless that you have been moving around a lot more than usual. Not at all 07/05/2022 11:24 AM Apurva Bocanegra M A Thoughts that you would be better off or hurting yourself in some way Not at all 07/05/2022 11:24 AM Apurva Bocanegra MA Patient Health Questionnaire -9 Score 0 07/05/2022 11:24 AM Apurva Bocanegra M A documented as of this encounter Plan of Treatment Upcoming Encounters Date Type Department Care Team (Late st Contact Info) Description 04/13/2025 1:00 PM EST Clinical Support [address] [address] Zonia Padilla RN documented as of this encounter Visit Diagnoses Not on filedocumented in this encounter Additional Health Concerns Assessment Noted Time PHQ-9 Depression Total Score: 0 06/14/19 23 12:01 PM EST documented as of this encounter Care Teams Chart Calculator Relationship Specialty Start Date End Date Marium Agudelo DO [address] [place] [address] PCP - General Family Medicine 01/24/19 Iggy Bolanos RN [address] [place] [phone] Police Patrol OfficerManager Loan 02/20/24 06/04/24 documented as of this encounter
--- OUTSIDE RECORDS SUMMARY | 2025-03-10 18:34 | XMS_ITS | Encounter Summary ---
Author Organization [employer] Address [address] [place] [address] 7 [place] [address] Care Team Providers Care Equipment Associate Name Role Phone Marium Agudelo DO Primary Care Provider + [phone] Iggy Bolanos RN Unavailable [phone] Encounter Details Date Type Department Care Team ([facility] Contact Info) Description 09/20/[address] [address] Marium Agudelo DO [address] [place] [address] Social History Tobacco Use Types Packs/Day Years [...] Description 04/13/2025 1:00 PM EST Clinical Support [facility] [address] [place] [address] Zonia Padilla RN documented as of this encounter Procedures Procedure [...] documented as of this encounter Care Teams Equipment Associate Relationship Specialty Start Date End Date Marium Agudelo DO [address] [place] [address] PCP - General Family Medicine 01/24/19 Iggy Bolanos RN [address] [place] [address] Inside Sales AssociateRecreation Facility Attendant 02/20/24 06/04/24 documented as of this encounter
--- OUTSIDE RECORDS SUMMARY | 2025-03-10 18:34 | XMS_ITS | Encounter Summary ---
Author Organization [employer] Address [address] [place] [address] 7[address] [place] [address] Care Team Providers Care Department Manager Name Role Phone Marium Agudelo DO Primary Care Provider + [phone] Iggy Bolanos RN Unavailable [phone] Reason for Visit * Reason Onset Date Comments Appointment Request 08/17/2022 Encounter Details Date Type Department Care Team ([facility] Contact Info) Description 08/17/2022 Telephone [facility] [address] [place], [place] [phone] Marium Agudelo DO [address] [place] [address] Appointment Request Social History Tobacco Use Types [...] 08/17/2022 4:54 PM EDT Triage call with [facility] [place] [id number] Pt reports for 3 days now has had headache and sinus symptoms. Pt reports facial pain over sinus areas , bilateral earaches, no fever or cough. Pt denies nasal drainage. Pt has been using saline nasal wash, taking tylenol and hasn't had any relief. Advised Pt to come to [facility] first thing in morning, hours are 830am- [...] accepted this outcome Please contact pt at [phone] [place] Speaker documented in this encounter Plan of Treatment Upcoming Encounters Date Type Department Care Team (Late st Contact Info) Description 04/13/2025 1:00 PM EST Clinical Support [address] [address] Valerie, Zonia, RN documented as of this encounter Visit Diagnoses Not on filedocumented in this encounter Additional Health Concerns Assessment Noted Time PHQ-9 Depression Total Score: 0 07/06/19 23 11:24 AM EST documented as of this encounter Care Teams Department Manager Relationship Specialty Start Date End Date Marium Agudelo DO [address] [place] [address] PCP - General Family Medicine 01/24/19 Iggy Bolanos RN [address] [place] [address] Permit CoordinatorCushion Sewer 02/20/24 06/04/24 documented as of this encounter
== END 2025-03-10 12:01 | disposition home or self-care (01) ==
LOC: HO.HHCLNP 12:00
PROVIDERS: Visit Provider Family Medicine
DX: K06.8 Other specified disorders of gingiva and edentulous alveolar ridge (principal)
CPT/HCPCS: 36415; 87255